=== PATIENT | female | born 2000 | race Caucasian/White ===

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

== ENCOUNTER 2021-04-28 12:57 | Outpatient (CLI) | payer BC, SELFPAY ==
[2021-04-28 14:54] LABS: SARS-CoV-2 RNA PCR Negative (Negative)
== END 2021-04-28 12:58 | disposition home or self-care (01) ==
LOC: CHSLAB 13:01
PROVIDERS: PCP Family Medicine; Visit Provider Family Medicine
DX: J00 Acute nasopharyngitis [common cold] (principal); Z20.822 Contact with and (suspected) exposure to COVID-19
CPT/HCPCS: C9803; U0003; U0005

== ENCOUNTER 2021-05-31 12:46 | Outpatient (CLI) | payer BC, SELFPAY ==
[2021-05-31 14:07] LABS: SARS-CoV-2 RNA PCR Positive (Negative)
== END 2021-05-31 12:47 | disposition home or self-care (01) ==
LOC: CHSLAB 12:49
PROVIDERS: PCP Family Medicine; Visit Provider Family Medicine
DX: U07.1 COVID-19 (principal)
CPT/HCPCS: C9803; U0003; U0005

== ENCOUNTER 2021-08-15 09:34 | Outpatient (CLI) | payer BC, SELFPAY ==
[2021-08-15 10:30] LABS: SARS-CoV-2 RNA PCR Negative (Negative)
== END 2021-08-15 09:35 | disposition home or self-care (01) ==
LOC: CHSLAB 09:37
PROVIDERS: PCP Family Medicine; Visit Provider Family Medicine
DX: Z20.822 Contact with and (suspected) exposure to COVID-19 (principal)
CPT/HCPCS: C9803; U0003; U0005

== ENCOUNTER 2023-05-02 14:59 | Outpatient (CLI) | payer OTHER, SELFPAY ==
--- NOTE | ~2023-05-02 | XR_ITS ---
EXAMINATION: XR chest 2V DATE: 05/02/2023 15:17 INDICATION: Cough TECHNIQUE: PA and lateral views of the chest are obtained. COMPARISON: 11/01/2019 FINDINGS: The lungs are free of acute opacities. No pleural effusion or pneumothorax. The cardiomedia stinal silhouette is normal. The visualized bones and soft tissues are unremarkable. IMPRESSION: 1. No acute cardiopulmonary abnormality. Reviewed, dictated and finalized at location A.
== END 2023-05-02 15:00 | disposition home or self-care (01) ==
LOC: CHSIMG 15:02
PROVIDERS: PCP Family Medicine; Visit Provider Family Medicine
DX: R05.8 Other specified cough (principal)
CPT/HCPCS: 71046

== ENCOUNTER 2023-05-16 13:01 | Outpatient (CLI) | payer OTHER, SELFPAY | END 2023-05-16 13:02 | disposition home or self-care (01) | LOC: CHSCARD 13:03 | PROVIDERS: PCP Family Medicine; Visit Provider Family Medicine | DX: R05.8 Other specified cough (principal) | CPT/HCPCS: 94060; 94726; 94729 ==

== ENCOUNTER 2023-10-22 17:47 | Emergency (ER) | payer OTHER, SELFPAY ==
--- NOTE | ~2023-10-22 | XR_ITS ---
EXAMINATION: XR chest 2V DATE: 10/22/2023 18:30 INDICATION: Back pain and posterior left shoulder pain TECHNIQUE: PA and lateral views of the chest were obtained. COMPARISON: Chest radiograph dated 05/02/2023 FINDINGS: The lungs are clear with no focal airspace opacities, pulmonary edema, pleural effusion or pneumothor ax. The cardiomediastinal silhouette is normal. Minimal S-shaped curvature of the thoracic spine with minimal spondylosis IMPRESSION: 1. No acute cardiopulmonary disease. Reviewed, dictated and finalized at location A. ATIONS LEAD
[2023-10-22 17:47] VITALS: BP 131/86; PULSE 97; RESP 17; TEMP 36.9; O2SAT 100
[2023-10-22 18:00] VITALS: BP 124/82; PULSE 89; RESP 17; O2SAT 99
--- NOTE | 2023-10-22 18:11 | ECG_ITS ---
Measurements Intervals [place] Rate: 82 P: -90 [place]: 114 QRS: 124 QRSD: 113 T: 35 QT: 365 QTc: 428 Interpretive Statements ECTOPIC ATRIAL RHYTHM INCOMPLETE RIGHT BUNDLE BRANCH BLOCK [90+ ms QRS DURATION, TERMINAL R IN V1/V2, 40+ ms S IN I/aVL/V4/V5/V6] RIGHT VENTRICULAR HYPERTROPHY AND ST-T CHANGE [SOME/ALL OF: PROMINENT R IN V1, LATE TRANSITION, RAD, JONNIE, SSS, RIGHT PRECORDIA ABNORMAL ECG NO PREVIOUS ECG AVAILABLE FOR COMPARISON Electronically Signed On 10-23-2023 11:56:04 COMMUNITY ENGAGEMENT LEADER by Darrell Yeung M.D.
--- NOTE | 2023-10-22 18:11 | ED.CHESTPAIN ---
HPI - Chest Pain General Chief Complaint: Back Pain/Injury Stated Complaint: BACK PAIN Time Seen by Provider: 10/22/23 17:52 History of Present Illness HPI narrative: Patient is a 23 year old female with history of asthma, active smoker, here with left sided posterior chest pain. She notes pain began . Pain is located just medially to her scapula on the left side, non radiating. Notes it seems to worsen with movements as well as deep breaths. She notes associated shortness of breath, no cough. No trauma however she did do her friends hair for 4-5 hours before onset of the pain. She denies recent travel history, history of PE/DVT. She is an active smoker, is on the Depo shot for control. No cardiac history. Related Data Home Medications Medication Instructions Recorded Confirmed buspirone 10 mg tablet 10 mg PO BID 10/22/23 10/22/23 fluticasone propionate 115 2 puff inhalation BID 10/22/23 10/22/23 mcg-salmeterol 21 mcg/actuation HFA inhaler (Advair HFA) quetiapine 50 mg tablet 50 mg PO DAILY 10/22/23 10/22/23 Allergies Allergy/AdvReac Type Severity Reaction Status Date / Time latex Allergy Unknown BURNING Verified 10/22/23 17:53 AND PAINFUL acetaminophen Allergy Unknown Verified 10/22/23 17:53 Penicillins Allergy Unknown Verified 10/22/23 17:53 Review of Systems Review of Systems: All systems reviewed & are unremarkable except as noted in HPI and below PMFSH Past Medical History Medical History (Updated 10/22/23 @ 19:16 by Dana Santillan MD) Asthma [place] syndrome Family History Family History Other No problems noted. Social History Social History Tobacco type: e-cigarettes/vaping Alcohol intake: never Substance use: never Living arrangements: with family Gender identity (if verbalized by the patient): Female Sexual Orientation (if Verbalized by the Patient): Straight or Heterosexual Exam Narrative: GENERAL: Well-appearing, well-nourished, and in no acute distress. HEAD: Normocephalic, atraumatic. EYES: PERRLA and EOMI. ENT: Nares clear. Mucous membranes moist. NECK: Supple. CHEST: Clear to auscultation. No respiratory distress. Reproducible tenderness medial to the scapula on the left side. No overlying skin changes. HEART: Regular rate and rhythm. Normal peripheral pulses. ABDOMEN: Soft, nontender, nondistended. EXTREMITIES: Normal range of motion. No edema. SKIN: Warm, dry, no rash. NEURO: No focal deficits. Alert and oriented x3. PSYCH: Normal mood and affect. Course Course Emergency Course: Chart review performed. Patient here with posterior chest wall pain. Patient seen and evaluated, non toxic appearing. Reproducible chest wall pain. Will do cardiac workup. Given smoker and control use, cannot apply PERC rule, patient is low risk, will do screening d-dimer. Muscle relaxer ordered for pain. Lab work and imaging reviewed. CBC unremarkable. D-dimer negative. CMP grossly normal. Mildly elevated bilirubin, this is actually improved from prior. Troponin negative. Pain has been present since , do not feel the need for repeat troponin at this point. CXR negative. Patient reevaluated, feeling a bit better with muscle relaxers. Will additionally do lidoderm patch and norco here. Will discharge on tylenol, ibuprofen and lidoderm patch. The results of pertinent diagnostic studies and exam findings were discussed. The patient?s provisional diagnosis and plan of care were discussed with the patient and present family. The patient and/or present family expressed understanding of the diagnosis and plan. The nurse was instructed to provide written instructions and appropriate follow-up information. The patient understands their need and responsibility to obtain additional follow-up as instructed. The risks of medications administered an
[2023-10-22 18:24] LABS: Basophils Absolute Auto 0.05 K/mm3 (0.00-0.10); Basophils Percent Auto 0.7 % (0.0-1.0); Eosinophils Absolute Auto 0.04 K/mm3 (0.02-0.50); Eosinophils Percent Auto 0.6 % (1.0-6.0); Hematocrit 40.6 % (35.0-49.0); Hemoglobin 13.8 g/dL (12.0-15.0); Immature Granulocyte Absolute 0.02 K/mm3 (0.00-0.00); Immature Granulocyte Percent A 0.3 % (0.0-0.0); Lymphocytes Absolute Auto 2.17 K/mm3 (1.10-4.50); Lymphocytes Percent Auto 31.5 % (18.0-42.0); Mean Corpuscular Hemoglobin 29.3 pg (27.0-31.0); Mean Corpuscular Volume 86.2 fL (78.0-102.0); Mean Platelet Volume 10.8 fl (9.2-11.8); Monocytes Absolute Auto 0.51 K/mm3 (0.10-0.90); Monocytes Percent Auto 7.4 % (2.0-11.0); Neutrophils Absolute Auto 4.1 K/mm3 (1.7-7.2); Neutrophils Percent Auto 59.5 % (50.0-70.0); Platelet Count Result 213 K/mm3 (150-420); Red Blood Count 4.71 M/mm3 (4.20-5.40); Red Cell Distribution Width 11.9 % (11.6-14.4); White Blood Count 6.9 K/mm3 (4.8-10.8)
[2023-10-22 18:30] VITALS: BP 118/76; PULSE 87; RESP 17; O2SAT 98
[2023-10-22] MEDS: CYCLOBENZAPRINE HCL 10 MG TABLET 5 MG PO (18:32)
[2023-10-22 18:37] LABS: D Dimer 0.19 mg/L (0.19-0.50)
[2023-10-22 18:47] LABS: Alanine Aminotransferase 32 U/L (14-59); Alkaline Phosphatase 72 U/L (46-116); Anion Gap 11 mmol/L (8-16); Aspartate Amino Transferase 27 U/L (15-37); Bilirubin,Total 1.4 mg/dL (0.00-1.00); Blood Urea Nitrogen 6 mg/dL (7-18); Carbon Dioxide 27 mmol/L (21-32); Chloride 105 mmol/L (98-108); Estimated Glomerular Filt Rate > 60; Glucose 91 mg/dL (70-99); NT Pro B Type Natriuretic Pept 44 pg/mL (0-125); Osmolality Calculated 293 mOsm/kg (285-295); Potassium 3.6 mmol/L (3.5-5.1); Sodium 143 mmol/L (136-145); Total Protein 7.1 g/dL (6.4-8.2); Troponin I 8.4 ng/L (0.00-60.4)
[2023-10-22 19:00] VITALS: BP 117/79; PULSE 80; RESP 17; O2SAT 98
[2023-10-22] MEDS: HYDROcodone/acetaminophen (*CRX) 5-325 MG TABLET 1 TAB PO (19:29)
[2023-10-22] MEDS: LIDOCAINE 5% PATCH 1 PATCH TRANSDERM (19:29)
[2023-10-22 19:33] VITALS: BP 111/71; PULSE 76; RESP 17; TEMP 36.9; O2SAT 98
== END 2023-10-22 19:33 | disposition home or self-care (01) ==
PROVIDERS: Emergency Provider Student in an Organized Health Care Education/Training Program; PCP Family Medicine
DX: R07.89 Other chest pain (principal); R06.02 Shortness of breath; F17.290 Nicotine dependence, other tobacco product, uncomplicated
CPT/HCPCS: 36415; 71046; 80053; 83880; 84484; 85025; 85380; 93005; 99284; A9270

== ENCOUNTER 2023-10-24 17:06 | Emergency (ER) | payer OTHER, SELFPAY ==
[2023-10-24 17:06] VITALS: BP 132/83; PULSE 98; RESP 20; TEMP 36.1; O2SAT 100
--- NOTE | 2023-10-24 17:12 | ECG_ITS ---
Measurements Intervals [place] Rate: 93 P: 267 [place]: 92 QRS: 113 QRSD: 118 T: 54 QT: 357 QTc: 444 Interpretive Statements ECTOPIC ATRIAL rHYTHM INCOMPLETE RIGHT BUNDLE BRANCH BLOCK [90+ ms QRS DURATION, TERMINAL R IN V1/V2, 40+ ms S IN I/aVL/V4/V5/V6] POSSIBLE RIGHT VENTRICULAR HYPERTROPHY [SOME/ALL OF: PROMINENT R IN V1, LATE TRANSITION, RAD, JONNIE, SSS] ABNORMAL ECG COMPARED TO ECG 10/22/2023 18:30:27 NO DIFFERENCE Electronically Signed On 10-25-2023 14:59:00 MANAGER MEAT by Chris Jack M.D.
[2023-10-24 17:18] VITALS: BP 128/73; PULSE 92; RESP 16; TEMP 36.6; O2SAT 100
[2023-10-24 17:33] LABS: Basophils Absolute Auto 0.05 K/mm3 (0.00-0.10); Basophils Percent Auto 0.8 % (0.0-1.0); Eosinophils Absolute Auto 0.04 K/mm3 (0.02-0.50); Eosinophils Percent Auto 0.7 % (1.0-6.0); Hematocrit 40.1 % (35.0-49.0); Hemoglobin 13.6 g/dL (12.0-15.0); Immature Granulocyte Absolute 0.01 K/mm3 (0.00-0.00); Immature Granulocyte Percent A 0.2 % (0.0-0.0); Lymphocytes Absolute Auto 2.03 K/mm3 (1.10-4.50); Lymphocytes Percent Auto 33.4 % (18.0-42.0); Mean Corpuscular HGB Conc 33.9 g/dL (32.0-36.0); Mean Corpuscular Hemoglobin 29.3 pg (27.0-31.0); Mean Corpuscular Volume 86.4 fL (78.0-102.0); Mean Platelet Volume 10.8 fl (9.2-11.8); Monocytes Absolute Auto 0.52 K/mm3 (0.10-0.90); Monocytes Percent Auto 8.6 % (2.0-11.0); Neutrophils Absolute Auto 3.4 K/mm3 (1.7-7.2); Neutrophils Percent Auto 56.3 % (50.0-70.0); Platelet Count Result 226 K/mm3 (150-420); Red Blood Count 4.64 M/mm3 (4.20-5.40); White Blood Count 6.1 K/mm3 (4.8-10.8)
[2023-10-24] MEDS: ALPRAZolam (*CRX) 0.5 MG TABLET PO (17:40)
[2023-10-24] MEDS: KETOROLAC (*BKC) 60 MG/2 ML VIAL IM (17:41)
[2023-10-24 17:48] LABS: D Dimer 0.19 mg/L (0.19-0.50); INR 1.1; Partial Thromboplastin Time 25.8 SEC (23.90-30.70); Prothrombin Time 12.1 Seconds (9.50-12.10)
[2023-10-24 17:55] LABS: Alanine Aminotransferase 28 U/L (14-59); Albumin Level 4.3 g/dL (3.4-5.0); Alkaline Phosphatase 76 U/L (46-116); Anion Gap 11 mmol/L (8-16); Aspartate Amino Transferase 21 U/L (15-37); Bilirubin,Total 1.4 mg/dL (0.00-1.00); Blood Urea Nitrogen 6 mg/dL (7-18); Calcium 8.9 mg/dL (8.5-10.1); Carbon Dioxide 25 mmol/L (21-32); Chloride 105 mmol/L (98-108); Estimated CRCL calculation 73 ml/min; Estimated Glomerular Filt Rate > 60; Glucose 101 mg/dL (70-99); Lipase 40 U/L (16-77); Osmolality Calculated 289 mOsm/kg (285-295); Potassium 3.5 mmol/L (3.5-5.1); Sodium 141 mmol/L (136-145); Troponin I 7.2 ng/L (0.00-60.4)
[2023-10-24 17:56] VITALS: BP 127/75; PULSE 84; RESP 18; O2SAT 99
--- NOTE | 2023-10-24 18:08 | ED.RECABL ---
HPI - Recheck/Abnormal Lab/Rx General Chief Complaint: Recheck/Abnormal Lab/Rx Stated Complaint: Shoulder Pain Time Seen by Provider: 10/24/23 17:10 this is a 23-year-old female was sent to the ER by her primary care physician with abnormal EKG. EKG was performed on the when she visited the ER at that time had blood work performed which does show an incomplete right bundle branch block with nonspecific ST-T changes with some patient complaining of shoulder discomfort and upper back pain. Patient denies any chest pain no chest pain with palpation, patient has no nausea vomiting no abdominal pain no shortness of breath no fever chills. Patient has pain with deep inspiration. Source: patient and family Mode of arrival: ambulatory Limitations: no limitations Related Data Home Medications Medication Instructions Recorded Confirmed buspirone 10 mg tablet 10 mg PO BID 10/22/23 10/24/23 fluticasone propionate 115 2 puff inhalation BID 10/22/23 10/24/23 mcg-salmeterol 21 mcg/actuation HFA inhaler (Advair HFA) quetiapine 50 mg tablet 50 mg PO DAILY 10/22/23 10/24/23 Allergies Allergy/AdvReac Type Severity Reaction Status Date / Time No Known Drug Allergies Allergy Other Verified 10/24/23 17:13 Review of Systems Review of Systems: All systems reviewed & are unremarkable except as noted in HPI and below PMFSH Past Medical History Medical History (Updated 10/24/23 @ 18:13 by Chris Rojas MD) Asthma [place] syndrome Family History Family History Other No problems noted. Social History Social History Tobacco type: e-cigarettes/vaping Alcohol intake: never Substance use: never Living arrangements: with family Gender identity (if verbalized by the patient): Female Sexual Orientation (if Verbalized by the Patient): Straight or Heterosexual Exam Const: General: healthy appearing and no acute distress Nutritional Appearance: well nourished Orientation/consciousness: patient oriented x3 Eyes: Conjunctivae: conjunctivae normal Neck: Neck: normal visual inspection Chest: Chest palpation & inspection: normal inspection of the chest Resp: Effort & Inspection: normal respiratory effort Auscultation: clear to auscultation bilaterally Cardio: Rate: regular rate Rhythm: regular rhythm GI: GI Palp: Yes Soft to palpation Auscultation: normal bowel sounds Back/Spine/Pelvis: Back: no CVA tenderness Skin: General skin exam: normal color Rashes: no rashes Neuro: General: patient oriented x3 and moves all extremities Extrem: General: normal to inspection Other: Mid upper back pain with deep inspiration Psych: Mental Status: mental status grossly normal Course Course Emergency Course: patient EKG performed shows an incomplete right bundle branch block with nonspecific ST elevation I was reviewed with patient and family, patient had similar EKG performed 2 days ago. Patient had troponins performed and they were negative as well as D-dimer. Patient received Toradol 60mg IM and 0.5mg PO Xanax. Patient continues to be anxious and advised to follow-up with her primary care physician and possible cardiology referral. Vital Signs Vital signs: Vital Signs Temperature 36.1 C L 10/24/23 17:06 Pulse Rate 98 10/24/23 17:06 Respiratory Rate 20 10/24/23 17:06 Blood Pressure 132/83 10/24/23 17:06 Pulse Oximetry 100 10/24/23 17:06 Oxygen Delivery Room Air 10/24/23 17:06 Temperature 36.6 C 10/24/23 17:18 Pulse Rate 84 10/24/23 17:56 Respiratory Rate 18 10/24/23 17:56 Blood Pressure 127/75 10/24/23 17:56 Pulse Oximetry 99 10/24/23 17:56 Oxygen Delivery Room Air 10/24/23 17:56 MDM - Recheck/Abnormal Lab/Rx Lab Data 10/24/23 17:28 10/24/23 17:28 Labs: Lab Results 10/24/23 Range/Units
[2023-10-24 18:24] VITALS: BP 109/71; PULSE 74; RESP 16; TEMP 36.6; O2SAT 100
== END 2023-10-24 18:27 | disposition home or self-care (01) ==
PROVIDERS: Emergency Provider Emergency Medicine; PCP Family Medicine
DX: I45.10 Unspecified right bundle-branch block (principal); R09.1 Pleurisy; F17.290 Nicotine dependence, other tobacco product, uncomplicated; Z79.899 Other long term (current) drug therapy
CPT/HCPCS: 36415; 80053; 83690; 84484; 85025; 85380; 85610; 85730; 93005; 96372; 99284; A9270; J1885

== ENCOUNTER 2023-10-25 15:48 | Outpatient (CLI) | payer OTHER, SELFPAY ==
--- NOTE | ~2023-10-25 | XR_ITS ---
EXAMINATION: XR chest 2V, XR scapula LT DATE: 10/25/2023 16:08 INDICATION: Left scapular pain TECHNIQUE: 1. PA and lateral views of the chest were obtained. AP and lateral views of the left scapula were obtained. COMPARISON: Chest radiograph dated 10/22/2023 FINDINGS: The lungs remain clear with no focal airspace opacities, pulmonary edema, pleural effusion or pneumot horax. The cardiomediastinal silhouette is normal. Mild thoracic spondylosis.. Bone alignment is norm al. No fracture. Joint space at the left glenohumeral and acromioclavicular joint spaces are normal. IMPRESSION: 1. Mild thoracic spondylosis. Otherwise normal chest and left scapular radiographs. Reviewed, dictated and finalized at location A. NEL LIP WETTER IMPRESSION: 1. Mild thoracic spondylosis. Otherwise normal chest and left scapular radiogra phs.
== END 2023-10-25 15:49 | disposition home or self-care (01) ==
LOC: CHSIMG 15:50
PROVIDERS: PCP Family Medicine; Visit Provider Family Medicine
DX: R07.9 Chest pain, unspecified (principal); M25.512 Pain in left shoulder; M43.04 Spondylolysis, thoracic region
CPT/HCPCS: 71046; 73010

== ENCOUNTER 2024-04-30 10:35 | Outpatient (CLI) | payer OTHER, SELFPAY ==
[2024-04-30 10:47] LABS: Hematocrit 42.6 % (35.0-49.0); Hemoglobin 14.5 g/dL (12.0-15.0); Red Blood Count 4.86 M/mm3 (4.20-5.40); White Blood Count 5.6 K/mm3 (4.8-10.8)
[2024-04-30 10:48] LABS: Basophils Absolute Auto 0.05 K/mm3 (0.00-0.10); Basophils Percent Auto 0.9 % (0.0-1.0); Eosinophils Absolute Auto 0.03 K/mm3 (0.02-0.50); Eosinophils Percent Auto 0.5 % (1.0-6.0); Immature Granulocyte Absolute 0.01 K/mm3 (0.00-0.00); Immature Granulocyte Percent A 0.2 % (0.0-0.0); Lymphocytes Absolute Auto 1.76 K/mm3 (1.10-4.50); Lymphocytes Percent Auto 31.4 % (18.0-42.0); Mean Corpuscular Hemoglobin 29.8 pg (27.0-31.0); Mean Corpuscular Volume 87.7 fL (78.0-102.0); Mean Platelet Volume 10.7 fl (9.2-11.8); Monocytes Absolute Auto 0.32 K/mm3 (0.10-0.90); Monocytes Percent Auto 5.7 % (2.0-11.0); Neutrophils Absolute Auto 3.44 K/mm3 (1.70-7.20); Neutrophils Percent Auto 61.3 % (50.0-70.0); Platelet Count Result 227 K/mm3 (150-420); Red Cell Distribution Width 11.9 % (11.6-14.4)
[2024-04-30 10:52] LABS: Add Urine Microscopic? NO; Appearance Urine Clear (Clear); Bilirubin Urine Negative (Negative); Blood Urine Negative (Negative); Color Urine Light Yellow (Yellow); Glucose Urine UA Negative (Negative); Ketones Urine Negative (Negative); Leukocyte Esterase Ur Negative (Negative); Nitrate Urine Negative (Negative); Protein Urine Negative (Negative); Specific Grav Ur 1.015 (1.010-1.020); Urobilinogen Urine 0.2 mg/dL (0.2-1.0)
[2024-04-30 11:38] LABS: Alanine Aminotransferase 38 U/L (14-59); Albumin Level 4.6 g/dL (3.4-5.0); Alkaline Phosphatase 99 U/L (46-116); Amylase 71 U/L (25-115); Anion Gap 9 mmol/L (4-12); Aspartate Amino Transferase 24 U/L (15-37); Bilirubin,Total 1.8 mg/dL (0.00-1.00); Blood Urea Nitrogen 9 mg/dL (7-18); Calcium 9.3 mg/dL (8.5-10.1); Carbon Dioxide 30 mmol/L (21-32); Chloride 101 mmol/L (98-108); Estimated Glomerular Filt Rate > 60; Glucose 86 mg/dL (70-99); Lipase 50 U/L (16-77); Osmolality Calculated 287 mOsm/kg (285-295); Potassium 4.2 mmol/L (3.5-5.1); Sodium 140 mmol/L (136-145); Total Protein 7.4 g/dL (6.4-8.2)
[2024-04-30 15:46] LABS: SPREG INTERNAL CONTROL Positive
[2024-04-30 15:47] LABS: Serum Qual hCG Negative
== END 2024-04-30 10:36 | disposition home or self-care (01) ==
LOC: CHSLAB 10:37
PROVIDERS: PCP Family Medicine; Visit Provider Family Medicine
DX: R10.9 Unspecified abdominal pain (principal)
CPT/HCPCS: 36415; 80053; 81003; 82150; 83690; 84703; 85025

== ENCOUNTER 2024-05-06 17:18 | Outpatient (RCR) | payer OTHER, SELFPAY ==
--- NOTE | 2024-05-18 17:13 | PCPTNOTE ---
Patient called & cancelled scheduled appointment this date due to [illness ]
--- NOTE | 2024-05-22 13:08 | PCPTNOTE ---
Cancelled session due to work schedule.
--- NOTE | 2024-05-29 16:10 | PCPTNOTE ---
No call, no show.
--- NOTE | 2024-07-01 17:35 | OPREHPOC ---
Outpatient Therapy Plan of Care This is a Multidisciplinary Plan of Care that may contain components documented by all disciplines (PT, OT, and ST.) PT Problem 1 PT Problem #1 Knowledge Deficit PT Goal 1 Goal / Goal Update 1. independent and compliant with HEP Target Visit 6 PT Problem 2 PT Problem #2 Pain PT Goal 1 Goal / Goal Update 1. decrease pain at worst to 4/10 or less Target Visit 12 PT Problem 3 PT Problem #3 Impaired Range of Motion PT Goal 1 Goal / Goal Update 1. patient to achieve 100% active lumbar rom without increased pain Target Visit 12 PT Problem 4 PT Problem #4 Impaired Strength PT Goal 1 Goal / Goal Update 1. improve core strength to 4/5 2. improve bilateral hip strength to 4+5/ or better 3. improve bilateral knee strength to 5/5 4. bridge to neutral posture and hold for 30 seconds or more Target Visit 12 PT Problem 5 PT Problem #5 Impaired Functional Mobil PT Goal 1 Goal / Goal Update 1. patient to tolerating walking 30 minutes without increased symptoms 2. oswestry to display 25% or less functional deficits 3. no L LE radicular symptoms Target Visit 12
--- NOTE | 2024-07-01 17:35 | PTOPEVAL1 ---
Assessment and note entered by JT File, PT Evaluation Information Assessment Status Evaluation ICD-10 Condition Codes (PT) Pain in low back M54.50 Onset 10/19/2023 Subjective Information patient reports she has been having pain in the back since october of this year. she reports the pain randomly came on. she reports she has had pain in the lower back back in 2016. she reports her pain in the lower back now has been increased since March of this year. she reports she has used medicated patches and ointments. she reports she has increased pain when getting up in the mornings . she reports she also has pain when she works out . she reports any movement can increase her pain. 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 she reports she does have stabbing pain in the L LE. she reports she also at times has numbness in the R LE. she reports she she has had xrays of the lower back. Assessment PT Clinical Summary mrs. alexander is a 24 yo woman who presents to skilled PT services for evaluation and treatment of lower back pain. she presents today with pain in the lumbar spine at rest and with movement, decreased core strength, weak LE strength, and limited rom/functional mobility. she is likely limited in functional activity performance due to poor core stability and posture with functional activities. continued skilled PT is indicated to improve her objective/functional deficits and progress towards a return to her prior level functional activity performance/quality of life. Plan of Care Interventions Electrical Stimulation,Hot Pack/Cold Pack,Manual Therapy,Mechanical Traction,Neuro Re-education, Patient/Caregiver Educati,Therapeutic Activities, Therapeutic Exercise PT Services Indicated Yes Treatment Frequency and 2x weekly for 12 visits Duration These treatments will address the objective and functional deficits as defined above. The patient will be advanced safely and appropriately in order for the patient to progress towards his/her prior level of function. Additional exercises will be introduced and as well as a comprehensive home exercise program upon discharge, if needed, ?to ensure carryover of functional gains achieved in the clinic. This treatment plan has been reviewed and agreement upon by the patient.
== END 2024-08-04 23:59 | disposition home or self-care (01) ==
LOC: CHSPT 17:18
PROVIDERS: Visit Provider Family Medicine
DX: M54.41 Lumbago with sciatica, right side (principal)
CPT/HCPCS: 97014; 97110; 97161; G0283

== ENCOUNTER 2024-11-21 08:12 | Emergency (ER) | payer OTHER, SELFPAY ==
--- NOTE | ~2024-11-21 | CT_ITS ---
CT of the Abdomen and Pelvis: Indication: Abdominal pain Technique: 2.5 mm axial scans were obtained through the abdomen and pelvis following intravenous adm inistration of 100 cc of Omnipaque 350. Dose reduction technique was used on this scan by utilizing a utomated exposure control and iterative reconstruction technique. The dose-length product (DLP) was 1 70.55 mGy-cm. Findings: Scans through the lung bases are unremarkable. The liver, spleen, pancreas, gallbladder, adrenals and kidneys are within normal limits. No evidence of aortic aneurysm. No lymphadenopathy. No bowel obstruction or bowel wall thickening. There is no evidence to suggest acute appendicitis. Images through the pelvis were performed. Probable mildly complex 3.6 cm right ovarian cyst with smal l amount of free fluid in the pelvis. No other pelvic mass evident. Urinary bladder unremarkable. Impression: Probable 3.6 cm mildly complex right ovarian cyst with small amount of free fluid in the pelvis. Cons ider pelvic ultrasound. Reviewed, dictated and finalized at location . Impression: Probable 3.6 cm mildly complex right ovarian cyst with small amount of free flu id in the pelvis. Consider pelvic ultrasound.
--- OUTSIDE RECORDS SUMMARY | 2024-11-21 08:14 | XMS_ITS ---
Author Organization Unknown Address [address] [place] [phone] Phone Care Team Providers Care Cabinet Professional Name Role Phone EDWARD ANASTACIOANGYAshok Attending Unavailable LUCY USHA Primary Unavailable Immunization Immunization Date Status Additional Notes Code Code System MMR 06/29/2002 Completed 03 CVX MMR 04/22/2006 Completed 03 CVX Hep B, adolescent or pediatric 2001 Completed 08 CVX IPV 2001 Completed 10 CVX IPV 2001 Completed 10 CVX IPV 2001 Completed 10 CVX IPV 04/22/2006 Completed 10 CVX influenza, split (incl. purified surface antigen) 06/23/2009 Completed 15 CV X influenza, split (incl. purified surface antigen) 07/31/2010 Completed 15 CV X influenza, split (incl. purified surface antigen) 07/31/2010 Completed 15 CV X Hib, unspecified formulation 2001 Completed 17 CVX DTaP 2001 Completed 20 CVX DTaP 2001 Completed 20 CVX DTaP 2001 Completed 20 CVX DTaP 06/29/2002 Completed 20 CVX DTaP 04/22/2006 Completed 20 CVX varicella 06/29/2002 Completed 21 CVX varicella 04/23/2012 Completed 21 CVX varicella 04/23/2012 Completed 21 CVX Hep A, pediatric, unspecifie d formulation 07/31/2010 Completed 31 CVX Hib-Hep B 2001 Completed 51 CVX Hib-Hep B 06/29/2002 Completed 51 CVX HPV, quadrivalent 06/03/2013 Completed 62 C VX HPV, quadrivalent 06/03/2013 Completed 62 C VX Hep A, ped/adol, 2 dose 04/23/2012 Completed 83 CVX Hep A, ped/adol, 2 dose 04/23/2012 Completed 83 CVX pneumococcal conjugate PCV 7 2001 Completed 100 CVX pneumococcal conjugate PCV 7 2001 Completed 100 CVX pneumococcal conjugate PCV 7 2001 Completed 100 CVX pneumococcal conjugate PCV 7 06/29/2002 Completed 100 CVX Td (adult), 5 Lf tetanus toxoid, preservative free, adsorbed 04/23/2016 Completed 113 CVX Td (adult), 5 Lf tetanus toxoid, preservative free, adsorbed 04/23/2016 Completed 113 CVX meningococcal MCV4P 05/26/2018 Completed 114 CVX meningococcal MCV4P 05/26/2018 Completed 114 CVX Tdap 04/23/2012 Completed 115 CVX Tdap 04/23/2012 Completed 115 CVX Meningococcal MCV4O 04/23/2012 Completed 136 CVX Influenza, split virus, trivalent, preservative 04/23/2012 Completed 141 CVX Influenza, split virus, quadrivalent, PF 06/03/2013 Completed 150 CVX HPV9 04/23/2012 Completed 165 CVX HPV9 06/23/2012 Completed 165 CVX Social History Type Status Start Date End Date Code Code Syst em Smoking History Unknown if ever smoked [id number] Sex Female Hospital Discharge Instructions Should you have any questions prior to discharge, please contact a member of your healthcare team. If you have left the hospital and have any questions, please contact your primary care physician. Reason For Referral No Data Found Plan of Treatment US Echo With Color ([id number]) 02/13/2024 Encounters Encounter Diagnosis Start Date Code Code Sys tem Abnormal electrocardiogram [ECG] [EKG] 11/26/2023 SNOMED-CT Personal Care Team Section Performer Name Performer Role Active Date Inactive USHA Catherine PCP - Primary care physician
--- OUTSIDE RECORDS SUMMARY | 2024-11-21 08:14 | XMS_ITS | Patient Health Summary ---
Author Organization [facility] Address [address] [place] [address] Care Team Providers Care Engineering Supplies Sales Name Role Phone Crispin Cruz MD Primary Care Provider [phone] Note from [facility],non-owned Affiliates and Associated Physician Practices is amultiple site organization consisting of ambulatory clinics and hospital sitesin [place], [place], [place] and [place]. This disclosure is being madepursuant to the Care Everywhere program and may not contain all information available regarding this patient. Last updated 18.[facility] Allergies * Acetaminophen(Nausea, abdominal pain) Medications * Be aware that medications may not be up to date on this document. Alwaysverify current medications with the patient. * pkulbvz-ixxfuztfofcvl-nsylkjiu 250-250-65 MG tablet Take 1 Tab by mouth every 4 hours as needed for Headache * naproxen (NAPROSYN) 500 MG tablet(Started 08/16/2015) Take 1 Tab by mouth as needed with food for Pain 5 refills left * raNITIdine (ZANTAC) 300 MG tablet Take 300 mg by mouth once daily * FLUoxetine (PROZAC) 20 MG capsule Take 20 mg by mouth once daily * drospirenone-ethinyl estradiol (LORYNA) 3-0.02 MG tablet Take 1 tablet by mouth once daily * ibuprofen (MOTRIN) 200 MG tablet Take by mouth every 6 hours as needed for Pain * HYDROcodone-acetaminophen (NORCO) 5-325 MG tablet Take 1 tablet by mouth every 4 hours as needed for Pain Active Problems Problem Noted Date Diagnosed Date Head ache 07/30/2017 Migraine without aura and wi thout status migrainosus, not intractable POTS (postural orthostatic tachycardia syndrome) Syncope and collapse Social History Tobacco Use Types Packs/Day Years Used Date Smoking Tobacco: Every Day Smokeless Tobacco: Never Sex and Gender Information Value Date Recorded Sex Assigned at Not on file Gender Identity Not on file Sexual Orientation Not on file Last Filed Vital Signs Vital Sign Reading Time Taken Comments Blood Pressure 104/68 08/21/2018 8:43 AM [employer] Pulse 79 06/14/2017 7:49 AM CDT per p cp Temperature 35.9 C (96.6 F) 06/14/2017 7:49 AM CDT per pcp Respiratory Rate 16 03/26/2017 9:13 AM CDT Oxygen Saturation 99% 03/26/2017 9:13 AM CDT Inhaled Oxygen Concentration - - Weight 47.3 kg (104 lb 4.4 oz) 08/21/2018 8:43 A M [employer] Height 159.8 cm (5' 2.91 ) 08/21/2018 8:43 AM CS T Body Mass Index 18.52 08/21/2018 8:43 AM [employer] Procedures * LAB RESULTS ORDER(Performed 04/11/2017) * CARDIAC EKG ORDER(Performed 04/11/2017) * ECHO CONSULT - PEDIATRIC(Performed 03/26/2017) Performed for Chest pain, unspecified type * EKG 15-LEAD(Performed 03/26/2017) Performed for Chest pain, unspecified type Results * LAB RESULTS ORDER (04/11/2017 12:38 PM CDT) Narrative 04/11/2017 12:38 PM CDT Ordered by an unspecified provider. Scanned Document LAB - THERAPEUTIC DR ELIAS MONITORING ORDERABLES * CARDIAC EKG ORDER (04/11/2017 12:38 PM CDT) Narrative 04/11/2017 12:38 PM CDT Ordered by an unspecified provider. Scanned Document CARDIAC SERVICES ORD ERABLES * ECHO CONSULT - PEDIATRIC (03/26/2017 10:24 AM CDT) 03/26/2017 10:2 4 AM CDT Narrative Procedure Note Yomi Hernandez MD - 03/26/2017 [address] [place] [id number] Fax Congenital Transthoracic Report Pat.Name: FATMATA HANNA Pat.ID: [id number] St.Date: 03/26/2017 Exam Time: 10:24:00 AM Study Type:Congenital TTE Height: 161cm Weight: 56kg BSA: 1.58 m2 Age: 7 2000,17Y Sex: FEMALE BP: 92/54 Sonogrphr: Yoselyn Alberto RDCS Pat. Stat.:Outpatient Room: Clinic CPT - 4: 10782 Reason for Study:Chest pain. Syncope History / Clinical:chest pain syncope Procedures:2D Non-congenital, Doppler Complete, Color Flow Visit ID: [id number] SUMMARY: Impression: Normal intracardiac anatomy and normal biventricular systolic function. No pathologic valve stenosis or regurgitation. Limited views of the coronary arteries but appear normal. Findings: Anatomic Relationships: Abdominal situs solitus. There is levocardia. Atrial situs solitus. The AV alignment is concordant. The ventricular looping is D-looped. The VA connection is concordant. The arterial relationships are normal. Systemic Veins: Normal right SVC. Normal IVC. Pulmonary Veins: Pulmonary veins drain normally to LA. Right Atrium: The right atrial size is normal. Left Atrium: The left atrial size is normal. Atrial Septum: Intact atrial septum. Left to right atrial shunt, none. Tricuspid Valve: The tricuspid valve is structurally normal. There is no stenosis. There is physiologic regurgitation present. Mitral Valve: The mitral valve is structurally normal. There is no stenosis. There is no regurgitation present. Right Ventricle: The cavity size is normal. The wall thickness is normal. The systolic function is normal. RV Outflow Tract: The outflow tract is normal. Left Ventricle: The cavity size is normal. The wall thickness is normal. The systolic function is normal. LV Outflow Tract: The outflow tract is normal. Ventricular Septum: The septal motion is normal. There is no defect with no shunting. Pulmonary Valve: The pulmonic valve is structurally normal. There is no stenosis. There is physiologic regurgitation present. Aortic Valve: The aortic valve is structurally normal. There is no stenosis. There is no regurgitation present. Pulmonary Artery: The MPA is normal. The LPA is normal. The RPA is normal. Aorta: The aortic root is normal. The aortic arch is patent. The arch sidedness is left aortic arch. PDA: No PDA with no shunting. Coronary Arteries: Limited views but appear normal. Pericardium: No pericardial effusion. MEASUREMENTS: 2D Left Ventricle LVEDV;bp 55.1 cc Index 34.9 cc/m LV EF bp 69 % LVESV;bp 17.1 cc LV SV bp 38 cc Aortic Valve AV nik 19.1 mm (zsc -0.2) Aorta AoRdiam 23.2 mm (zsc -1.1) AAo 27.1 mm (zsc 1.4) MMODE Aorta Ao Rt 26 mm Ventricular Septum IVSd 7.9 mm (zsc -0.8) IVSs 10.7 mm (zsc -1) LVPW LVPWd 7.2 mm (zsc -1.1) LVPWs 8.6 mm (zsc -3.4) Ratios IVS/LVPW 1.1 LA/Ao 0.9 Left Atrium LAID 23 mm Left Ventricle LVEDV 65.9 cc LV EF 88.2 % LVESV 7.8 cc LV%fs 57.7 % LVIDd 39 mm (zsc -2.5) LV Mass 82.5 g (zsc -2.5) Index 52.2 g/m LVIDs 16.5 mm (zsc -4.4) LV SV 58.1 cc Signed 03/26/2017 03:02 PM Katelyn Hernandez MD Yomi Hernandez MD ECHO ORDERABLES [facility] [address] [place] [address] * EKG 15-LEAD (03/26/2017 8:20 AM CDT) Ventricular Rate 72 BPM CG MUSE Atrial Rate 72 BPM CG MUSE P-R Interval 128 ms CG MUSE QRS Duration ms 98 ms CG MUSE Q-T Interval ms 384 ms CG MUSE QTC Calculation (Bezet) 420 ms CG MUSE Calculated P [place] 56 degrees CG MUSE Calculated R [place] 116 degrees CG MUSE Calculated T [place] 54 degrees CG MUSE Interpretation EKG Sinus rhythm with marked sinus arrhythmia , Ectopic atrial rhythm with junctional escape complexes Rightward axis T wave abnormality in the anterior leads, maybe normal varient Abnormal ECG No previous ECGs available Confirmed by MD SWATI, YOMI ([id number]) on 03/26/2017 6:19:12 PM CG MUSE 03/26/2017 8:20 AM CDT 03/26/2017 6:19 PM CDT Yomi Hernandez MD ECG ORDERABLES CG MUSE Care Teams Engineering Supplies Sales Relationship Specialty Start Date End Date Crispin Cruz MD [address] [place] [address] PCP - General Family Medicine 03/26/17
--- OUTSIDE RECORDS SUMMARY | 2024-11-21 08:14 | XMS_ITS | Data Portability ---
Author Organization [facility] [place] Address [address] [place] [address] Assessment Encounter Date Assessment Date Assessment LastModified by Organization Details LastModified Time 01/03/2021 01/03/2021 nexplanon removed declines contraception WWE UTD [email or web address] Not available 01/03/2021 13:06:39 Plan of Treatment Reminders Order Date Submit Date Provider Last Modified By Organization Details Last Modified Time Details Appointments None recorded. Lab None recorded. Referral None recorded. Procedures None recorded. Surgeries None recorded. Imaging None recorded. Medication Orders nystatin-t riamcinolo ne 100,000 unit/gram- 0.1 % topical ointment 2019 020 [id number], [address] [place], [address], 12:42:18 Patient TargetsNo targets recorded. Patient Instructions Encounter Date Encounter Id Patient Instructions Last Modified By Organization Details Last Modified Time 05/17/2020 [id number] good vulvar care , finish diflucan start ointment f/u wwe [id number] Not available 05/17/2020 17:44:47 01/03/2021 [id number] learning about control [email or web address] Not available 01/03/2021 13:06:40 surgical trays* [email or web address] Not available 08/16/2021 14:41:40 Reason for Referral None Reported. Results Created Date Observation Date Name Description Value Unit Range Abnormal Flag Note LastModifiedBy Organization Detail LastModifiedTime 05/17/20 20 05/20/2020 bacte rial vagin osis + vagin itis panel , vagin al dorene sp. Not Detect ed normal Trich omona s vagin dante: DNA testi ng perfo rmed by Trans cript ion Media hiwot Ampli ficat ion (TMA) These resul ts shoul d be inter prete d in light of all clini corie and labor atory findi ngs. This assay is highl y accur ate, but rare false posit rakan and negat rakan resul ts may occur . Posit rakan resul ts in low preva lence popul ation s may requi re re-ev aluat ion. A negat rakan resul t does not precl ude a possi ble infec tion due to a speci men inade quacy or sampl ing error . Test perfo rmed by [facility], d/b/a [facility] judy, [address], [place] [address] , Dilan Padron ra, DO, Labor atory Direc tor. Arminda xavier a vagin dante, Hortensia da speci es: Genom ic DNA is isola hiwot from patie nt speci mens by stand sabiha labor atory techn iques and julio zed using custo m OpenA rray plate s, perfo rmed on the Quant Studi o 12K Flex Real Time PCR syste m. A posit rakan resul t is provi ded for patho genic bacte payal, virus and/o r funga l speci es based on detec tion of ampli ficat ion produ cts. Misty l vagin al antione resul ts of Misty l or [place] hiwot are deter mined by calcu latin g the ratio of the organ ism to the total bacte payal prese nt in the speci men, and bonny ring that ratio to a PathG roup patie nt popul ation . Overa ll resul ts of Misty l, Borde rline and Abnor mal are deter mined using a proba bilit y model which was devel oped by an exten sive julio sis and integ ratio n of clini corie thres holds for marke r organ isms on a large set of sympt omati c & asymp tomat ic speci mens. Patie nt popul ation s with diffe rent demog raphi cs from the Path rou model popul ation may have diffe rent indic ator organ isms with diffe rent relat rakan ratio s, which would influ ence the final resul ts. Resul ts shoul d be inter prete d in the sharon xt of all clini corie and labor atory findi ngs. The test was devel oped and its perfo rmanc e isaac cteri stics deter mined by [facility], [employer] d/b/a [facility] [address]. It has not been clear ed or appro orion by the U.S. Food and Drug Admin istra tion. The FDA has deter mined that such clear ance or appro paco is not neces erika. Perti nent refer ence inter vals are avail able from the [facility] at[facility] on reque st. Test( s) perfo rmed by [facility], [employer], d/b/a [facility] [address], [address], [place] [address] , Dilan Padron ra, DO, Labor atory Dire tor. Not Available [facility] ([facility]) [address] [facility] [address], [place], [address], 05/20/2020 15:27:07 05/17/20 20 05/20/2020 bacte rial vagin osis + vagin itis panel , vagin al gardnerella vaginalis Not Detect ed normal Trich omona s vagin dante: DNA testi ng perfo rmed by Trans cript ion Media hiwot Ampli ficat ion (TMA) These resul ts shoul d be inter prete d in light of all clini corie and labor atory findi ngs. This assay is highl y accur ate, but rare false posit rakan and negat rakan resul ts may occur . Posit rakan resul ts in low preva lence popul ation s may requi re re-ev aluat ion. A negat rakan resul t does not precl ude a possi ble infec tion due to a speci men inade quacy or sampl ing error . Test perfo rmed by [facility], d/b/a [facility] roulola, [address], [place] [address] , Dilan Padron ra, DO, Labor atory Direc tor. Gardn erell a vagin dante, Hortensia da speci es: Genom ic DNA is isola hiwot from patie nt speci mens by stand sabiha labor atory techn iques and julio zed using custo m OpenA rray plate s, perfo rmed on the [employer] Studi o 12K Flex Real Time PCR syste m. A posit rakan resul t is provi ded for patho genic bacte payal, virus and/o r funga l speci es based on detec tion of ampli ficat ion produ cts. Msity l vagin al antione resul ts of Misty l or [place] hiwot are deter mined by calcu latin g the ratio of the organ ism to the total bacte payal prese nt in the speci men, and bonny ring that ratio to a PathG roup patie nt popul ation . Overa ll resul ts of Misty l, Borde rline and Abnor mal are deter mined using a proba bilit y model which was devel oped by an exten sive julio sis and integ ratio n of clini corie thres holds for marke r organ isms on a large set of sympt omati c & asymp tomat ic speci mens. Patie nt popul ation s with diffe rent demog raphi cs from the PathG roup model popul ation may have diffe rent indic ator organ isms with diffe rent relat rakan ratio s, which would influ ence the final resul ts. Resul ts shoul d be inter prete d in the sharon xt of all clini corie and labor atory findi ngs. The test was devel oped and its perfo rmanc e isaac cteri stics deter mined by [facility] d/b/a [facility]oup. It has not been clear ed or appro orion by the U.S. Food and Drug Admin istra tion. The FDA has deter mined that such clear ance or appro paco is not neces erika. Perti nent refer ence inter vals are avail able from the labor atory on reque st. Test( s) perfo rmed by [facility], d/b/a [facility] roup, [address], [place] [address] , Dilan Padron ra, DO, Labor atory Dire tor. Not Available [facility]) [address], [place], [address], 05/20/2020 15:27:07 05/17/20 20 05/20/2020 bacte rial vagin osis + vagin itis panel , vagin al trichomonas vaginalis, aptima (panther) NOT DETECT ED normal Trich omona s vagin dante: DNA testi ng perfo rmed by Trans cript ion Media hiwot Ampli ficat ion (TMA) These resul ts shoul d be inter prete d in light of all clini corie and labor atory findi ngs. This assay is highl y accur ate, but rare false posit rakan and negat rakan resul ts may occur . Posit rakan resul ts in low preva lence popul ation s may requi re re-ev aluat ion. A negat rakan resul t does not precl ude a possi ble infec tion due to a speci men inade quacy or sampl ing error . Test perfo rmed by [facility], [employer], d/b/a [facility] roup, [address], [place] [address] , Dilan Padron ra, DO, Labor atory Direc tor. Arminda xavier a vagin dante, Hortensia da speci es: Genom ic DNA is isola hiwot from patie nt speci mens by stand sabiha labor atory techn iques and julio zed using custo m OpenA rray plate s, perfo rmed on the [employer] o 12K Flex Real Time PCR syste m. A posit rakan resul t is provi ded for patho genic bacte payal, virus and/o r funga l speci es based on detec tion of ampli ficat ion produ cts. Misty l vagin al antione resul ts of Misty l or [place] hiwot are deter mined by calcu latin g the ratio of the organ ism to the total bacte payal prese nt in the speci men, and bonny ring that ratio to a PathG roup patie nt popul ation . Overa ll resul ts of Misty l, Borde rline and Abnor mal are deter mined using a proba bilit y model which was devel oped by an exten sive julio sis and integ ratio n of clini corie thres holds for marke r organ isms on a large set of sympt omati c & asymp tomat ic speci mens. Patie nt popul ation s with diffe rent demog raphi cs from the PathG roup model popul ation may have diffe rent indic ator organ isms with diffe rent relat rakan ratio s, which would influ ence the final resul ts. Resul ts shoul d be inter prete d in the sharon xt of all clini corie and labor atory findi ngs. The test was devel oped and its perfo rmanc e isaac cteri stics deter mined by [employer], [employer] d/b/a [facility]LOAG. It has not been clear ed or appro orion by the U.S. Food and Drug Admin istra tion. The FDA has deter mined that such clear ance or appro paco is not neces erika. Perti nent refer ence inter vals are avail able from the labor atory on reque st. Test( s) perfo rmed by [facility], [employer], d/b/a [facility] roup, [address], [place] [address] , Dilan Padron ra, DO, Labor atory Direc tor. Not Available [facility] ([facility]) [address], [place], [address], 05/20/2020 15:27:07 Result Notes None recorded. Problems Name Problem SNOMED Code Status Onset Date Resolution Date Notes Provider Name and Address Organization Details Recorded Time Contrace ptive sheath status 921559433 Completed 201801/03/2021 Encounte r for initial prescrip tion of other contrace ptives;R ecorded Elsewher e: No [facility] S ource: EHR Exhibitions Curator sean: N Dee Dee ce ID: 0001 Rolando lable Time: 01:00:00 PM Sophia Hugo MD [address], [place], [address], [facility] 12:44:56 Amenorrh ea 82668972 Completed 201801/03/2021 Amenorrh ea;Recor ded Elsewher e: No [facility] S ource: EHR Exhibitions Curator sean: Rodolfo Funez ce ID: 0001 Rolando lable Time: 01:00:00 PM Sophia Hugo MD [address], [place], [address], [facility] 12:44:53 Pregnanc y test negative 608240111 Completed 201801/03/2021 Encounte r for pregnanc y test, result negative ;Recorde d Elsewher e: No [facility]: EHR Exhibitions Curator sean: Rodolfo Funez ce ID: 0001 Rolando lable Time: 01:00:00 PM Sophia Hugo MD [address], [place], [address], [facility] 12:45:01 Pelvic and perineal pain 895698050 Completed 201801/03/2021 Pelvic and perineal pain;Rec orded Elsewher e: No Locat ion: [facility] S ource: EHR Exhibitions Curator sean: N Dee Dee ce ID: 0001 Rolando lable Time: 01:00:00 PM Sophia Hugo MD [address], [place], [address], [facility] 1 12:45:06 Educatio n Completed 201801/03/2021 Encounte r for other general counseli ng and advice on contrace ption;Re corded Elsewher e: No Locat ion: [facility] S ource: EHR Exhibitions Curator sean: N Dee Dee ce ID: 0001 Rolando lable Time: 01:00:00 PM Sophia Hugo MD [address], [place], [address], [facility] 12:44:59 Procedur e Completed 201801/03/2021 Encounte r for checking , reinsert ion or removal of implanta ble subderma l contrace ptive;Re corded Elsewher e: No Locat ion: [facility] S ource: EHR Exhibitions Curator sean: Rodolfo Funez ce ID: 0001 Rolando lable Time: 01:00:00 PM Sophia Hugo MD [address], [place], [address], [facility] 12:45:04 Problem Notes None recorded. Procedures Surgical History Date Name Laterality Status Provider Name and Address Organization Details Recorded Time 01/04/20 21 Nexplanon Removal completed Sophia Hugo MD [address], [place], [address], [facility] 01/03/2021 13:05:36 09/09/19 19 open reduction of dislocation of finger completed Rubia Mejia [facility] 05/17/2020 20:48:51 09/09/19 17 open reduction of dislocation of finger completed Rubia Mejia [facility] 05/17/2020 20:48:40 09/09/19 13 Unlisted px vestibule mouth completed Rubia Mejia [facility] 05/17/2020 20:49:03 Imaging Results None recorded. Procedure Notes None recorded. Medical Equipment None Reported. Allergies Allergen ID Allergen Name Allergen Category Reaction Reaction Severity Criticality Documentation Date Start Date Code Code System Note Provider Name and Address Organization Details Recorded Time 33195 acetamino phen medicatio n Not available Not available Not available 08/26/2020 161 RxNorm Comme nt: [facility] Agent : Tylen ol; Not Available [facility] 0 14:17:46 1970 Product containin g penicilli n (product) medicatio n Not available Not available Not available 05/17/2020 09396 8001 SNOMED Rubia Mejia [place], [place] - [facility] 0 17:40:44 Medications Name Sig Start Date Stop Date Status Note LastModified by Organization Details LastModified Time fluconazo le 150 mg tablet 01/03 completed Not Available Not Available Not Available ondansetr on HCl 4 mg tablet 01/03 completed Not Available Not Available Not Available ceftriaxo ne 250 mg solution for injection inject (125MG) by intramus cular route as a single dose 01/03 completed Prescrib ed Elsewher e: No Locat ion: [facility]ify By: kpanyik Encoundonnie r DateTime : 05/21/20 19 01:00:00 PM Not Available Not Available Not Available metronida zole 500 mg tablet take 1 tablet by oral route every 12 hours 05/17 completed Not Available Not Available Not Available ciproflox acin 250 mg tablet 01/03 completed Not Available Not Available Not Available nystatin- triamcino lone 100,000 unit/gram -0.1 % topical ointment APPLY TO THE AFFECTED AREA(S) BY TOPICAL ROUTE 2 TIMES PER DAY 01/03 completed Not Available Not Available Not Available oseltamiv ir 75 mg capsule 05/17 completed Not Available Not Available Not Available nystatin 100,000 unit/gram topical cream 01/03 completed Not Available Not Available Not Available omeprazol e 20 mg capsule,d elayed release 01/03 completed Not Available Not Available Not Available mirtazapi ne 15 mg tablet 01/03 completed Not Available Not Available Not Available ondansetr on 4 mg disintegr ating tablet 05/17 completed Not Available Not Available Not Available doxycycli ne hyclate 100 mg tablet take 1 tablet by oral route 2 times every day 05/17 completed Not Available Not Available Not Available escitalop patt 5 mg tablet 01/03 completed Not Available Not Available Not Available Nexplanon 68 mg subdermal implant Inject by subcutan eous route. 2018 active removal date 2 Not Available Not Available Not Available Vitals Date Recorded Body height Body mass index (BMI) Percentile per age and sex Body mass index (BMI) Body weight Systolic blood pressure Diastolic blood pressure Provider Name and Address Organization Details Last Updated DateTime 1 157.48 cm 10 % 18.5 kg/m2 63496.8 3 g 116 mm[Hg] 78 mm[Hg] Radha Morris [facility] 1 12:41:58 Date Recorded Body height Body mass index (BMI) Percentile per age and sex Body mass index (BMI) Body weight Systolic blood pressure Diastolic blood pressure Provider Name and Address Organization Details Last Updated DateTime 0 157.48 cm 14 % 18.8 kg/m2 01704.0 1 g 102 mm[Hg] 65 mm[Hg] Rubia Mejia [facility] 0 17:40:34 Social History Question Answer Notes LastModified by Organizat ion Details LastModified Time Tobacco Smoking Status Current Every Day Smoker Rubia Mejia [facility] 05/17/2020 20:47:51 What Is Your Level Of Alcohol Consumption? Occasional [email or web address] Information not available 05/17/2020 Do You Or Have You Ever Used E-cigarettes Or Vape? Current User Of Electronic Cigarettes [email or web address] Information not available 05/17/2020 What Was The Date Of Your Most Recent Tobacco Screening? 05/17/2020 [email or web address] Information not available 05/17/2020 Do You Or Have You Ever Used Smokeless Tobacco? Never Used Smokeless Tobacco [email or web address] Information not available 05/17/2020 How Much Tobacco Do You Smoke? 1 PPW [email or web address] Information not available 05/17/2020 Sex: Unknown Functional Status Question Answer Note LastModified by Organizat ion Details LastModified Time What is your exercise level? Occasional [email or web address] Information not available 05/17/2020 Mental Status None recorded. Family History Relationship Description Onset Age of this Age Resolved Age Notes LastModified by Organization Details LastModified Time Maternal Grandfather Heart disease Not available 05/17 20:45:13 Maternal Grandfather Malignant tumor of colon [email or web address] Not available 05/17 20:45:33 Maternal Grandfather Hypercholest erolemia [email or web address] Not available 05/17 20:45:44 Maternal Grandfather Hypertensive disorder [email or web address] Not available 05/17 20:45:51 Maternal Grandmother Malignant tumor of colon [email or web address] Not available 05/17 20:45:33 Maternal Grandmother Malignant tumor of ovary [email or web address] Not available 05/17 20:46:05 Maternal Grandmother Malignant tumor of breast [email or web address] Not available 05/17 20:46:16 Maternal Grandmother Malignant tumor of cervix [email or web address] Not available 05/17 20:46:35 Maternal Grandmother Cyst of ovary [email or web address] Not available 05/17 20:46:54 Mother Cyst of ovary [email or web address] Not available 05/17 20:46:54 Mother Endometriosi s (clinical) [email or web address] Not available 20:47:25 Paternal Grandmother Diabetes mellitus [email or web address] Not available 05/17 20:47:36 Notes:Maternal grandfather: Heart disease, High cholesterol, Cancer, colon Maternal grandmother: Cancer, colon, Cancer, cervical, Cancer, ovarian, Cancer, breast Mother: ovarian cyst, Endometriosis, Bleeding disorder Paternal grandmother: Diabetes mellitus Medical History Condition Response Other Y Asthma Y Gynecological History Statement/Question Response Date of Last Pap Smear Current Control Method None Date of LMP 04/26/2020 LMP Approximate Obstetrics History GPAL:G 0 P 0 0 0 0 Past Encounters Encounter ID Performer Location Encounter Start Date Encounter Closed Date Diagnosis/Indication Diagnosis SNOMED-CT Code Diagnosis ICD10 Code Diagnosis Note [id number] Janny Case CNM [place] [address] [address] 05/17/2020 17:20:03 05/17/2020 18:09:30 Candidiasis of vagina 63437301 B37.3 [id number] Sophia Hugo MD [place] [address] [address] 01/03/2021 12:31:17 01/03/2021 13:08:50 Removal of subcutaneous contraceptive 775838640 Z30.46 Health Concerns Section Related Observation LastModified by Organization Detai ls LastModified Time None Recorded Concern Status LastModified by Organization Details LastModified Time None Recorded Advance Directives Directive None Recorded Payers Encounter Date Sequence Insurance Name Policy Number Policy Cordero Covered Member ID Cordero Member ID Guarantor Name 05/17/2020 1 [place] [id number] Brain Barrett [id number] Shade Hanna 01/03/2021 1 [place] [id number] Brain Barrett [id number] Shade Hanna Notes Date Note Type Note Provider Name and Address Organization Details Recorded Time 05/17/2020 text/html Vaginal/Vulvar ProblemReported bypatient.Notes:pcp gave her antibiotics for a yeast infection, itching burning worsened and pt to ED and given 3 diflucan sxs are improving slightly Janny Case CNM [address], [place], [address], [facility] 05/17/2020 17:44:59 01/03/2021 text/html Here for nexplan on removal. Has never liked it since placed 1.5 years ago, but now bleeding for 4 weeks and molina, wants it out. Planning condoms, maybe OCP in a bit. Sophia Hugo MD [address], [place], [address], [facility] 01/03/2021 13:07:03 OBGyn Episode No OBEpisode recorded.
--- OUTSIDE RECORDS SUMMARY | 2024-11-21 08:15 | XMS_ITS ---
Author Organization Unknown Address [address] [place] [phone] Phone Care Team Providers Care Tour Sales Representative Name Role Phone RAMIRO WAGNER Attending Unavailable LUCY USHA Primary Unavailable Immunization [...] 165 CVX HPV9 06/23/2012 Completed 165 CVX Results TEST URINE - Colle ct Date/Time: 11/08/2023 10:15 [facility] ID: [id number] [address] [place], [place], [id number] LOINC: Test Value Unit Reference Range Code Code System Flag URINE PREG NEGATIVE LUMBAR SPINE - Completed: 10:33 LOINC: EXAM DESCRIPTION: LUMBAR SPINE REASON FOR STUDY: NKI lower back pain no previous fx or surgery Duration: since 10/19/2023 TECHNIQUE: Frontal, lateral and cone-down radiographic view(s) of the lumbar spine. COMPARISON: None available FINDINGS: 5 [id number] lumbar type vertebral bodies. There is mild levoconvex curvature. Lumbar vertebral body heights and disc spaces are maintained. There is no significant facet sclerosis. IMPRESSION: The lumbar vertebral body heights are maintained. THIS IS AN ELECTRONICALLY VERIFIED FINAL REPORT 11/09/2023 6:49 AM - Electronically signed by Dorian Patricia D.O. AP: AP Report ID: [id number] Reading Location: [id number] Social History Type Status Start Date End Date Code Code Syst em Smoking History Unknown if ever smoked [id number] Sex Female Hospital Discharge Instructions Should you have any questions prior to discharge, please contact a member of your healthcare team. If you have left the hospital and have any questions, please contact your primary care physician. Reason For Referral No Data Found Plan of Treatment US Echo With Color ([id number]) 02/13/2024 Encounters Encounter Diagnosis Start Date Code Code Sys tem Pain in left shoulder 11/08/2023 SNOMED -CT Personal Care Team Section Performer Name Performer Role Active Date Inactive USHA Catherine PCP - Primary care physician Imaging Narrative Notes
--- OUTSIDE RECORDS SUMMARY | 2024-11-21 08:15 | XMS_ITS | Clinical Summary ---
Author Organization [facility] Address [address] [facility] [facility] [place] [address] Care Team Providers Care Burr Bench Operator Name Role Phone Crispin Cruz MD Primary Care Provider Source Comments [facility],non-owned Affiliates and Associated Physician Practices is amultiple site organization consisting of ambulatory clinics and hospital sitesin [place], [place], [place] and [place]. This disclosure is being madepursuant to the Care Everywhere program and may not contain all information available regarding this patient. Last updated 18.[facility] [employer] Allergies Active Allergy Reactions Criticality Noted Date Comments Acetaminophen 08/16/2015 Nausea, abdominal pain Medications * Be aware that medications may not be up to date on this document. Alwaysverify current medications with the patient. Medication Sig Dispensed Refills Start Date End Date Status aspirin-acetaminophen -caffeine 250-250-65 MG tablet Take 1 Tab by mouth every 4 hours as needed for Headache Active naproxen (NAPROSYN) 500 MG tablet Take 1 Tab by mouth as needed with food for Pain 15 Tab 5 08/16/2015 Active raNITIdine (ZANTAC) 300 MG tablet Take 300 mg by mouth once daily Active FLUoxetine (PROZAC) 20 MG capsule Take 20 mg by mouth once daily Active drospirenone-ethinyl estradiol (LORYNA) 3-0.02 MG tablet Take 1 tablet by mouth once daily Active ibuprofen (MOTRIN) 200 MG tablet Take by mouth every 6 hours as needed for Pain Active HYDROcodone-acetamino phen (NORCO) 5-325 MG tablet Take 1 tablet by mouth every 4 hours as needed for Pain Active Active Problems Problem Noted Date Diagnosed Date Head ache 07/30/2017 Migraine without aura and wi thout status migrainosus, not intractable POTS (postural orthostatic tachycardia syndrome) Syncope and collapse Family History Medical History Relation Name Comments Sudd. 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 Pulse 79 06/14/2017 7:49 AM CDT per p cp Temperature 35.9 C (96.6 F) 06/14/2017 7:49 AM CDT per pcp Respiratory Rate 16 03/26/2017 9:13 AM CDT Oxygen Saturation 99% 03/26/2017 9:13 AM CDT Inhaled Oxygen Concentration - - Weight 47.3 kg (104 lb 4.4 oz) 08/21/2018 8:43 A M HAM ROLLING 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 Height 159.8 cm (5' 2.91 ) 08/21/2018 8:43 AM CS T Body Mass Index 18.52 08/21/2018 8:43 AM 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 ROLLING 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 Plan of Treatment Health Maintenance Due Date Last Done Comments PAP SMEAR 2001 HIV SCREENING 02/15/2016 HPV VACCINE (1 - 3-dose series) 02/15/2016 CHLAMYDIA/GONORRHEA SCREENING 2017 MENINGOCOCCAL (Group B) VACC INE SHARED DECISION-MAKING (1 of 2 - Standard) 2017 HEPATITIS C SCREENING 02/10/2019 DTAP/TDAP/TD VACCINES (1 - Tdap) 02/15/2020 HEPATITIS B VACCINE (1 of 3 - 19+ 3-dose series) 02/15/2020 PNEUMOCOCCAL VACCINE (1 of 2 - PCV) 02/15/2020 COVID-19 VACCINE (1 - 2023-2 5 season) 2024 INFLUENZA VACCINE (#1) 2024 DEPRESSION SCREENING 09/09/2024 ZOSTER VACCINE (1 of 2) 2051 HIB VACCINE Aged Out No longer eligi ble based on patient's age to complete this topic MENINGOCOCCAL GROUPS A/C/Y/W VACCINE Aged Out No longer eligible b ased on patient's age to complete this topic Care Teams Burr Bench Operator Relationship Specialty Start Date End Date Crispin Cruz MD [address] [place] [phone] PCP - General Family Medicine 03/26/17
--- OUTSIDE RECORDS SUMMARY | 2024-11-21 08:15 | XMS_ITS ---
Author Organization Unknown Address [address] [place] [phone] Phone Care Team Providers Care Diabetes Nurse Name Role Phone EDWARD ANASTACIOANGYAshok Attending Unavailable [...] CVX HPV9 06/23/2012 Completed 165 CVX Results US ECHO W/ COLOR - Completed : 02/13/2024 15:34 LOINC: See Scanned Image Attachment for Report Dictated By: Trans Initials: BG Trans Date: 02/18/24 15:21 <<REPDIST>> Social History Type Status Start Date End Date Code Code Syst em Smoking History Unknown if ever smoked [id number] Sex Female Hospital Discharge Instructions Should you have any questions prior to discharge, please contact a member of your healthcare team. If you have left the hospital and have any questions, please contact your primary care physician. Reason For Referral No Data Found Plan of Treatment US Echo With Color ([id number]) 02/13/2024 Encounters Encounter Diagnosis Start Date Code Code Sys tem Electrocardiogram abnormal 02/13/2024 657554261 S NOMED-CT Personal Care Team Section Performer Name Performer Role Active Date Inactive USHA Catherine PCP - Primary care physician Imaging Narrative Notes [facility] 02/18/2024 15:21 [place] [id number] RADIOLOGY REPORT Patient Number: [id number] Patient Name: FLOR RAMIREZ Type: O/P MR Number: [id number] : 2000 Age: 24 Sex: F Room #: Admit Date: 02/13/24 Discharge Date 02/13/24 Ordering Physician: EDWARD DIOR [facility] Physician: LUCY Lackey Physician: X-Ray Number : [id number] US ECHO W/ COLOR [id number] COMPLETE:02/13/24 15:34 APC [id number] (REASON-ECHO COMPLTE: abn ekg See Scanned Image Attachment for Report Dictated By: Radha Initials: Trans Date: 02/18/24 15:21 <<REPDIST>>
--- OUTSIDE RECORDS SUMMARY | 2024-11-21 08:15 | XMS_ITS | Clinical Summary ---
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 NEXPLANON Active ondansetron (ZOFRAN ODT) 4 MG TABLET DISPERSIBLE Take 1 Tab by mouth every 8 hours as needed for Nausea - 1st line. 20 Tab ` 0 Active ondansetron (ZOFRAN) 4 MG Tablet Take 1 Tab by mouth every 8 hours as needed for Nausea - 1st line. 15 Tab 1 0 Active omeprazole (PRILOSEC) 20 MG CAPSULE DELAYED RELEASE Take 1 Cap by mouth daily. 90 Cap 3 0 Active hyoscyamine (ANASPAZ, LEVSIN) 0.125 MG TabletIndication s:Gilbert's syndrome,Right upper quadrant abdominal pain Take 1 Tab by mouth every 6 hours as needed for Cramping. 60 Tab 1 0 Active Active Problems No known active problems Family History Medical History Relation Name Comments Diabetes Maternal Grandfather Cervical Cancer Maternal Grandmother Diabetes Maternal Grandmother Liver Disease Maternal Uncle had transpla nt Relation Name Status Comments Father Alive Maternal Grandfather Maternal Grandmother Maternal Uncle Mother Alive Social History Tobacco Use Types Packs/Day Years Used Date Smoking Tobacco: Never Smokeless Tobacco: Never Tobacco Cessation:Counseling Given: No Alcohol Use Standard Drinks/Week Comments Never 0 (1 standard drink = 0.6 oz pur e alcohol) AUDIT-C Answer Date Recorded Frequency of Alcohol Consumption Never 09/11/2019 Average Number of Drinks Not on file 020 Frequency of Binge Drinking Not on file 11/2019 Sexually Active Control Partners Comments Yes Comments No Sex and Gender Information Value Date Recorded Sex Assigned at Not on file Legal Sex Female 7:18 AM GARMENT SEWER HAND Gender Identity Not on file Sexual Orientation Not on file Last Filed Vital Signs Vital Sign Reading Time Taken Comments Blood Pressure 100/74 02/10/2020 10:04 AM CDT Pulse 92 02/10/2020 10:04 AM CDT Temperature 36.4 C (97.6 F) 02/10/2020 10:04 AM CDT Respiratory Rate 16 02/10/2020 10:04 AM CDT Oxygen Saturation 98% 02/10/2020 10:04 AM CDT Inhaled Oxygen Concentration - - Weight 44 kg (97 lb) 02/10/2020 10:04 AM CDT Height 157.5 cm (5' 2 ) 02/10/2020 10:04 AM CDT Body Mass Index 17.74 02/10/2020 10:04 AM CDT Plan of Treatment Health Maintenance Due Date Last Done Comments Meningococcal B Immunization (1 of 2 - Standard) 2017 Pap Smear 2022 Influenza Immunization (#1) 2024 06/03/2013, 0 04/23/2012 SARS-COV-2 Immunization ( - season) 2024 Respiratory Syncytial Virus (RSV) Immunization (Adult) (1 - 1-dose 75+ series) 02/15/2076 Hepatitis B Immunization Completed 002, 2001, 2001 Pneumococcal Immunization Combined Aged Out 06/29/2002, 2001, 2001, Additional history exists No longer eligible based on patient's age to complete this topic TdaP Immunization Completed 04/23/2012 Human Papillomavirus (HPV) Immunization Completed 06/03/2013, 06/23/2012, 04/23/2012 DTaP/Tdap/Td Immunization Discontinued 2015, 04/23/2012, 04/22/2006, Additional history exists Meningococcal Immunization (ACWY) Completed 05/26/2018, 04/23/2012 Hepatitis C Virus (HCV) Screening Completed 09/11/2019 Rotavirus Immunization Aged Out No lo nger eligible based on patient's age to complete this topic Procedures Procedure Name Priority Date/Time Associated Diagnosis Comments HEPATITIS PANEL ACUTE (AHP) Routine 09/11/2019 11:48 AM GARMENT SEWER HAND Serum total bilirubin elevated Abnormal weight loss Chronic nausea Right upper quadrant abdominal pain from Last 3 Months or Most Recently Relevant to Health Maintenance Results * HEPATITIS PANEL ACUTE (AHP) (09/11/2019 11:48 AM GARMENT SEWER HAND) HEPATITIS A IGM ANTIBODY NON DETECTED NON DETECTED 09/11/2019 9:25 PM GARMENT SEWER HAND [facility] Comment: IGM Antibodies to HAV not detected. Does not exclude early acute or recovered HAV infection. HEP B CORE AB (IGM) NON DETECTED NON DETECTED 09/11/2019 9:25 PM GARMENT SEWER HAND [facility] Comment:IGM anti-HBC not det ected. Does not exclude the possibility of exposure to or infection with HBV. HEPATITIS B SURFACE ANTIGEN NON DETECTED NON DETECTED 09/11/2019 9:25 PM GARMENT SEWER HAND [facility] Comment:A nonreactive test r esult does not exclude the possibility of exposure to or infection with Hepatitis B virus. A nonreactive test result in individuals with prior exposure to hepatitis B may be due to antigen levels below the detection limit of this assay or lack of antigen reactivity to the antibodies in this assay. hepatitis C antibody 0.17 <1 S/CO 09/11/2019 9:25 PM GARMENT SEWER HAND [facility] Comment: Signal/Cutoff ratio < 0.79 is Nondetected Signal/Cutoff ratio 0.80-0.99 is Grayzone Signal/Cutoff ratio > 0.99 is Detected Supplemental assays are recommended if signal/cutoff ratio is >/=1.00. Signal/cutoff ratio result >/= 5.00 is 97% predictive of positivity for recombinant immunoblot assay (RIBA) and will be reported to the [place] Department of Public Health as required. Blood specimen (specimen) Venipuncture / Unknown 09/11/2019 11:48 AM GARMENT SEWER HAND 09/11/2019 12:57 PM GARMENT SEWER HAND us Daphne Lawrence CIVIL TECHNICIAN, MAINFRAME APPLICATIONS DEVELOPER HEMATOLOGY ORDERA BLES Final Result [facility] [address] [place] [address], from Last 3 Months or Most Recently Relevant to Health Maintenance Insurance [facility] [email or web address]] Care Teams Car Pincher Relationship Specialty Start Date End Date Crispin Cruz MD [address] [place] [address] PCP - General Pediatrics 09/11/19
--- OUTSIDE RECORDS SUMMARY | 2024-11-21 08:15 | XMS_ITS | Referral Summary ---
Author Organization [facility] Address [address] [place] [address] Care Team Providers Care Crew Leader/Control Room Operator Name Role Phone Crispin Cruz MD Primary Care Provider Source Comments [facility],non-owned Affiliates and Associated Physician Practices is amultiple site organization consisting of ambulatory clinics and hospital sitesin [place], [place], [place] and [place]. This disclosure is being madepursuant to the Care Everywhere program and may not contain all information available regarding this patient. 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 Pulse 79 06/14/2017 7:49 AM CDT per p cp Temperature 35.9 C (96.6 F) 06/14/2017 7:49 AM CDT per pcp Respiratory Rate 16 03/26/2017 9:13 AM CDT Oxygen Saturation 99% 03/26/2017 9:13 AM CDT Inhaled Oxygen Concentration - - Weight 47.3 kg (104 lb 4.4 oz) 08/21/2018 8:43 A M MONOMER RECOVERY OPERATOR Height 159.8 cm (5' 2.91 ) 08/21/2018 8:43 AM CS T Body Mass Index 18.52 08/21/2018 8:43 AM MONOMER RECOVERY OPERATOR Plan of Treatment Not on file Care Teams Crew Leader/Control Room Operator Relationship Specialty Start Date End Date Crispin Cruz MD [address] [place] [address] PCP - General Family Medicine 03/26/17
--- OUTSIDE RECORDS SUMMARY | 2024-11-21 08:15 | XMS_ITS ---
Author Organization Unknown Address [address] [place] [phone] Phone Care Team Providers Care Nitric Acid Plant Operator Name Role Phone EDWARD ANASTACIOANGYAshok Attending Unavailable LUCY [facility] Primary Unavailable Immunization Immunization Date Status Additional [...] Smoking History Unknown if ever smoked [id number] Sex Female Hospital Discharge Instructions Should you have any questions prior to discharge, please contact a member of your healthcare team. If you have left the hospital and have any questions, please contact your primary care physician. Reason For Referral No Data Found Plan of Treatment US Echo With Color ([id number]) 02/13/2024 Encounters Encounter Diagnosis Start Date Code Code Sys tem Abnormal electrocardiogram [ECG] [EKG] 10/29/2023 SNOMED-CT Personal Care Team Section Performer Name Performer Role Active Date Inactive USHA Catherine PCP - Primary care physician
--- NOTE | 2024-11-21 08:18 | ED_ITS ---
HPI - General Adult General Chief complaint: Abdominal Pain Stated complaint: lower abd pain Time Seen by Provider: 11/21/24 08:17 History of Present Illness HPI narrative: Patient reports an approximate 12 hour history sharp intense suprapubic pain radiating to her lower right quadrant. She states that this pain started following consensual intercourse with her male partner. She states that she has never had pain like this before. Associated symptoms include some hot flashes and nausea. The patient reports that she was previously using Depo-Provera as control but has not had a shot 5-6 months. She was plenty to get an IUD but was unable to do so due to insurance coverage. She is not currently on any control. Last menstrual period was October 20, 2024. Patient reports that over the past 1-2 months she has had worsening sensation of urinary retention. She reports that she has had thick white vaginal discharge. she has had previous yeast infections but never associated with pain like this. She reports a history of IBS and states that she has not had a bowel movement since the preceding night which is unusual for her. Patient has a family history of multiple first-degree relatives with ovarian cysts. she has not had vomiting or diarrhea. denies any vaginal bleeding at this time. She denies shortness of breath or chest pain. She denies fevers aside from the hot flashes that she reported. She denies any vaginal bleeding or passing clots. Related Data Home Medications ?Medication ?Instructions ?Recorded ?Confirmed ?Last Taken ?Type fluticasone propionate 50 1 spray intranasal Q12H 11/21/24 Unknown History mcg/actuation nasal spray,suspension Allergies Allergy/AdvReac Type Severity Reaction Status Date / Time Penicillins Allergy Mild Rash Verified 11/21/24 08:29 [facility] Past Medical History Medical History (Updated 11/21/24 @ 10:06 by Raymond Cavazos MD) Asthma [place] syndrome Family History Family History Other No problems noted. Social History Social History Tobacco type: e-cigarettes/vaping Alcohol intake: never Substance use: never Living arrangements: with family Gender identity (if verbalized by the patient): Female Sexual Orientation (if Verbalized by the Patient): Straight or Heterosexual Exam 2 Narrative: GEN: Awake, alert, and appropriate to situation. Well appearing, well nourished, nontoxic, NAD. HEENT: No rhinorrhea noted, mucous membranes moist. No scleral icterus or conjunctival injection. CV: Normal rate, regular rhythm, S1S2 no M/G/R. 2+ distal pulses all extremities. No peripheral edema noted. PULM: Non-labored respiration. Clear to auscultation bilaterally. No wheezes, rales, rhonchi. GI: mild periumbilical and lower right quadrant tenderness. No rebound tenderness. Negative bed bump. No rigidity, distention or guarding.? NEURO: Normal speech. No lateralizing or focal deficits noted. Course Course Emergency Course: Ordering labs to include CBC, CMP, UA, urine test, , PCR for gonorrhea and chlamydia and Trichomonas. CT scan abdomen with contrast. Naproxen for pain as requested by patient. Vital Signs Vital signs: Vital Signs Temperature 36.6 C 11/21/24 08:22 Pulse Rate 69 11/21/24 08:22 Respiratory Rate 20 11/21/24 08:22 Blood Pressure 103/50 L 11/21/24 08:22 Pulse Oximetry 100 11/21/24 08:22 Oxygen Delivery Room Air 11/21/24 08:22 Temperature 36.6 C 11/21/24 08:22 Pulse Rate 69 11/21/24 08:22 Respiratory Rate 20 11/21/24 08:22 Blood Pressure 103/50 L 11/21/24 08:22 Pulse Oximetry 100 11/21/24 08:22 Oxygen Delivery Room Air 11/21/24 08:22 Medical Decision Making [facility] Narrative Medical decision making narrative: Patient was placed in Room #:? One Independent Historian: the patient External Source Review: medical records Differential diagnosis includes but not limited to:? initial differential diagnosis quite broad including appendicitis, colitis, urinary tract infection, , ovarian cyst. Medications were Reviewed: home medications Independently Interpreted by me: labs Medications, treatment, ED course: Patient received naproxen for pain and a 1 L fluid bolus due to some evidence of dehydration on her lab work and urinalysis. CT scan shows a mildly complex 3.6 cm right ovarian cyst. This is highly consistent with the location of patient's pain and her history of intense pain which then subsided likely after cyst rupture. Social situation impacting patients care: Patient lives independently within the community and she has a primary care and assistant commissioner to follow up with. Shared decision making:? discussed with the patient that her vital signs and labs today are reassuring then in cases like this ovarian cysts are often at least initially treated with pain management and observation. I recommended to her strongly that she follow up with her PCP and with her supervisor home economics as the they will likely want to obtain a pelvic ultrasound as the next step in her evaluation. The patient was given return precautions for signs and symptoms of acute infection or bleeding. She is comfortable with the plan of discharge for the ER and follow up with her regular doctors in the community. Accepting physician: Trang DISCHARGE DIAGNOSIS: ovarian cyst DISPOSITION: home with self-care CONDITION AT DISCHARGE:? stable Vital Signs Vital Signs: Vital Signs Temperature 36.6 C 11/21/24 08:22 Pulse Rate 69 11/21/24 08:22 Respiratory Rate 20 11/21/24 08:22 Blood Pressure 103/50 L 11/21/24 08:22 Pulse Oximetry 100 11/21/24 08:22 Oxygen Delivery Room Air 11/21/24 08:22 Temperature 36.6 C 11/21/24 08:22 Pulse Rate 69 11/21/24 08:22 Respiratory Rate 20 11/21/24 08:22 Blood Pressure 103/50 L 11/21/24 08:22 Pulse Oximetry 100 11/21/24 08:22 Oxygen Delivery Room Air 11/21/24 08:22 Lab Data 11/21/24 08:40 11/21/24 08:40 Labs: Lab Results 11/21/24 11/21/24 Range/Units 08:40 08:41 WBC 5.3 (4.8-10.8) K/mm3 RBC 4.69 (4.20-5.40) M/mm3 Hgb 13.6 (12.0-15.0) g/dL Hct 41.6 (35.0-49.0) % MCV 88.7 (78.0-102.0) fL MCH 29.0 (27.0-31.0) pg MCHC 32.7 (32-36) g/dL RDW 12.2 (11.6-14.4) % Plt Count 190 (150-420) K/mm3 MPV 11.2 (9.2-11.8) fl Sodium 145 (136-145) mmol/L Potassium 4.2 (3.5-5.1) mmol/L Chloride 107 (98-108) mmol/L Carbon Dioxide 28 (21-32) mmol/L Anion Gap 10 (4-12) mmol/L BUN 13 (7-18) mg/dL Creatinine 0.85 (0.55-1.02) mg/dL Estim Creat Clear Calc 71 ml/min Estimated GFR > 60 (59 - ) Glucose 87 (70-99) mg/dL Calculated Osmolality 299 H (285-295) mOsm/kg Calcium 9.0 (8.5-10.1) mg/dL Total Bilirubin 1.7 H (0.00-1.00) mg/dL AST 18 (15-37) U/L ALT 32 (14-59) U/L Alkaline Phosphatase 121 H (46-116) U/L Total Protein 7.0 (6.4-8.2) g/dL Albumin 4.0 (3.4-5.0) g/dL Urine Color Light yellow (Yellow) Urine Appearance Clear (Clear) Urine pH 6.5 (5.0-8.0) Ur Specific [place] 1.025 H (1.010-1.020) Urine Protein Negative (Negative) Urine Glucose (UA) Negative (Negative) Urine Ketones Negative (Negative) Ur Blood (Man) Negative (Negative) Urine Nitrate Negative (Negative) Urine Bilirubin Negative (Negative) Urine Urobilinogen 0.2 (0.2-1.0) mg/dL Leukocyte Esterase Rfl Negative (Negative) RORY/UL Urine Test Negative CSF HIV-1 p24 Ag Scrn Negative (Negative) RPR Pending RPR Titer Add Testing Pending C. trachomatis (PCR) Pending HIV-1 Antibody Cancelled HIV-1 RNA, Qual (TMA) Cancelled HIV-2 Antibody Cancelled HIV 1&2 Ag/Ab, 4th Gen Cancelled HIV 1&2 Antibody Rapid Negative (Negative) N. gonorrhoeae (PCR) Pending T. vaginalis (PCR) Pending Discharge Plan Discharge Clinical Impression: Ovarian cyst Patient Disposition: Home, Self-Care Condition: Stable Instructions: Antibiotic Form, Ovarian Cyst (ED), Ruptured Ovarian Cyst (ED) Additional Instructions: your CT scan shows that you have a 3.6 cm mildly complex right ovarian cyst. This is quite consistent with the pain you described. Your vital signs and her lab work are otherwise very reassuring although you do appear to be mildly dehydrated. Cases like this typically monitored and treated with pain medications. Per your request I have sent a prescription for naproxen to your pharmacy of record. Please call your primary care doctor 1st thing on Saturday morning to arrange appointment for follow-up. Your primary care doctor may want to order a pelvic ultrasound for you for additional follow-up. Return to the emergency department or call 911 if? you develop high fever, shaking chills, or are unable to tolerate food or? fluids, have decreased urination, or are too sick to get out of bed. Return to the emergency department if you develop new or acute pain, if you have uncontrolled vaginal bleeding, or if you feel faint or weak or short of breath. Patient Language: Urdu Prescriptions: New naproxen 250 mg tablet 250 mg PO BID PRN (Reason: pain) Qty: 14 0RF No Action fluticasone propionate 50 mcg/actuation spray,suspension 1 spray INTRANASAL Q12H Follow-up/Referrals: UNKNOWN,DOCTOR [Non-Staff] - Time of Disposition: 10:07
[2024-11-21 08:22] VITALS: BP 103/50; PULSE 69; RESP 20; TEMP 36.6; O2SAT 100
[2024-11-21 08:44] LABS: Hematocrit 41.6 % (35.0-49.0); Hemoglobin 13.6 g/dL (12.0-15.0); Mean Corpuscular HGB Conc 32.7 g/dL (32-36); Mean Corpuscular Volume 88.7 fL (78.0-102.0); Mean Platelet Volume 11.2 fl (9.2-11.8); Platelet Count Result 190 K/mm3 (150-420); Red Blood Count 4.69 M/mm3 (4.20-5.40); Red Cell Distribution Width 12.2 % (11.6-14.4); White Blood Count 5.3 K/mm3 (4.8-10.8)
[2024-11-21 08:50] LABS: Pregnancy On Board Control Positive; Urine Pregnancy Test Negative
[2024-11-21 08:58] LABS: Add Urine Microscopic? NO; Appearance Urine Clear (Clear); Bilirubin Urine Negative (Negative); Blood Urine Negative (Negative); Color Urine Light Yellow (Yellow); Glucose Urine UA Negative (Negative); Ketones Urine Negative (Negative); Leukocyte Esterase Ur Negative LEU/UL (Negative); Nitrate Urine Negative (Negative); Protein Urine Negative (Negative); Specific Grav Ur 1.025 (1.010-1.020); Urobilinogen Urine 0.2 mg/dL (0.2-1.0); pH Urine 6.5 (5.0-8.0)
[2024-11-21 09:00] LABS: Alanine Aminotransferase 32 U/L (14-59); Alkaline Phosphatase 121 U/L (46-116); Anion Gap 10 mmol/L (4-12); Aspartate Amino Transferase 18 U/L (15-37); Bilirubin,Total 1.7 mg/dL (0.00-1.00); Blood Urea Nitrogen 13 mg/dL (7-18); Carbon Dioxide 28 mmol/L (21-32); Chloride 107 mmol/L (98-108); Estimated CRCL calculation 71 ml/min; Estimated Glomerular Filt Rate > 60; Glucose 87 mg/dL (70-99); Osmolality Calculated 299 mOsm/kg (285-295); Potassium 4.2 mmol/L (3.5-5.1); Sodium 145 mmol/L (136-145)
[2024-11-21] MEDS: NAPROXEN 250 MG TABLET 500 MG PO (09:09)
[2024-11-21 09:17] LABS: HIV 1 P24 AG Negative (Negative); HIV 1/2 AB Negative (Negative)
[2024-11-21] MEDS: SODIUM CHLORIDE 0.9% IV 1,000 ML 999 ML IV CONT (09:32)
--- OUTSIDE RECORDS SUMMARY | 2024-11-21 10:08 | XMS_ITS | Clinical Summary ---
Author Organization [facility] Address [address] [address] Phone Care Team Providers Care Dobby Looms Pegger Name Role Phone Crispin Cruz MD Primary Care Provider [phone] Allergies Active Allergy Reactions Criticality Noted Date [...] on file Legal Sex Female 7:18 AM HOME HEALTH ATTENDANT Gender Identity Not on file Sexual Orientation [...] PANEL ACUTE (AHP) Routine 09/11/2019 11:48 AM HOME HEALTH ATTENDANT Serum total bilirubin elevated Abnormal weight loss Chronic nausea Right upper quadrant abdominal pain from Last 3 Months or Most Recently Relevant to Health Maintenance Results * HEPATITIS PANEL ACUTE (AHP) (09/11/2019 11:48 AM HOME HEALTH ATTENDANT) HEPATITIS A IGM ANTIBODY NON DETECTED NON DETECTED 09/11/2019 9:25 PM HOME HEALTH ATTENDANT [facility] Comment: IGM Antibodies to HAV not detected. Does not exclude early acute or recovered HAV infection. HEP B CORE AB (IGM) NON DETECTED NON DETECTED 09/11/2019 9:25 PM HOME HEALTH ATTENDANT [facility] Comment:IGM anti-HBC not det ected. Does not exclude the possibility of exposure to or infection with HBV. HEPATITIS B SURFACE ANTIGEN NON DETECTED NON DETECTED 09/11/2019 9:25 PM HOME HEALTH ATTENDANT [facility] Comment:A nonreactive test r esult does not [...] antibody 0.17 <1 S/CO 09/11/2019 9:25 PM HOME HEALTH ATTENDANT [facility] Comment: Signal/Cutoff ratio < 0.79 is Nondetected Signal/Cutoff ratio 0.80-0.99 is Grayzone Signal/Cutoff ratio > 0.99 is Detected Supplemental assays are recommended if signal/cutoff ratio is >/=1.00. Signal/cutoff ratio result >/= 5.00 is 97% predictive of positivity for recombinant immunoblot assay (RIBA) and will be reported to the [place] Department of Public [facility] as required. Blood specimen (specimen) Venipuncture / Unknown 09/11/2019 11:48 AM HOME HEALTH ATTENDANT 09/11/2019 12:57 PM HOME HEALTH ATTENDANT us Daphne Lawrence GAS TURBINE MECHANIC, CHANNEL DEVELOPMENT MANAGER HEMATOLOGY ORDERA BLES Final Result [facility] [address] [place] [address], from Last 3 Months or Most Recently Relevant to Health Maintenance Insurance [facility] Care Teams Dobby Looms Pegger Relationship Specialty Start Date End Date Crispin Cruz MD [address] [place] [address] PCP - General Pediatrics 09/11/19
--- OUTSIDE RECORDS SUMMARY | 2024-11-21 10:08 | XMS_ITS ---
Author Organization Unknown Address [address] [place] [phone] Phone Care Team Providers Care Meals On Wheels Driver Name Role Phone RAMIRO WAGNER Attending Unavailable [...] URINE - Colle ct Date/Time: 11/08/2023 10:15 [facility] ID: [id number] [address] [place], [place], [id number] LOINC: Test Value Unit Reference Range Code Code System Flag URINE PREG NEGATIVE LUMBAR SPINE - Completed: 10:33 LOINC: EXAM DESCRIPTION: LUMBAR SPINE REASON FOR STUDY: NKI lower back pain no previous fx or surgery Duration: since 10/19/2023 TECHNIQUE: Frontal, lateral and cone-down radiographic view(s) of the lumbar spine. COMPARISON: None available FINDINGS: 5 [id number] lumbar type vertebral bodies. There is mild levoconvex curvature. Lumbar vertebral body heights and disc spaces are maintained. There is no significant facet sclerosis. IMPRESSION: The lumbar vertebral body heights are maintained. THIS IS AN ELECTRONICALLY VERIFIED FINAL REPORT 11/09/2023 6:49 AM - Electronically signed by Dorian Patricia D.O. AP: AP Report ID: [id number] Reading Location: [id number] Social History Type Status Start Date End Date Code Code Syst em Smoking History Unknown if ever smoked [id number] Sex Female Hospital Discharge Instructions Should you have any questions prior to discharge, please contact a member of your healthcare team. If you have left the hospital and have any questions, please contact your primary care physician. Reason For Referral No Data Found Plan of Treatment US Echo With Color ([id number]) 02/13/2024 Encounters Encounter Diagnosis Start Date Code Code Sys tem Pain in left shoulder 11/08/2023 SNOMED -CT Personal Care Team Section Performer Name Performer Role Active Date Inactive Da USHA Rosales PCP - Primary care physician Imaging Narrative Notes
--- OUTSIDE RECORDS SUMMARY | 2024-11-21 10:08 | XMS_ITS ---
Author Organization Unknown Address [address] [place] [phone] Phone Care Team Providers Care Prosthetic Makeup Designer Name Role Phone EDWARD ANASTACIOANGYAshok Attending Unavailable [...] Smoking History Unknown if ever smoked [id number] Sex Female Hospital Discharge Instructions Should you have any questions prior to discharge, please contact a member of your healthcare team. If you have left the hospital and have any questions, please contact your primary care physician. Reason For Referral No Data Found Plan of Treatment US Echo With Color ([id number]) 02/13/2024 Encounters Encounter Diagnosis Start Date Code Code Sys tem Abnormal electrocardiogram [ECG] [EKG] 10/29/2023 SNOMED-CT Personal Care Team Section Performer Name Performer Role Active Date Inactive USHA Catherine PCP - Primary care physician
--- OUTSIDE RECORDS SUMMARY | 2024-11-21 10:08 | XMS_ITS ---
Author Organization Unknown Address [address] [place] [phone] Phone Care Team Providers Care Welder Experimental Name Role Phone EDWARD ANASTACIOANGYAshok Attending Unavailable [...] Smoking History Unknown if ever smoked [id number] Sex Female Hospital Discharge Instructions Should you have any questions prior to discharge, please contact a member of your healthcare team. If you have left the hospital and have any questions, please contact your primary care physician. Reason For Referral No Data Found Plan of Treatment US Echo With Color ([id number]) 02/13/2024 Encounters Encounter Diagnosis Start Date Code Code Sys tem Electrocardiogram abnormal 02/13/2024 [id number] S NOMED-CT Personal Care Team Section Performer Name Performer Role Active Date Inactive USHA Catherine PCP - Primary care physician Imaging Narrative Notes [facility] 02/18/2024 15:21 [place] [id number] RADIOLOGY REPORT Patient Number: [id number] Patient Name: FLOR RAMIREZ Type: O/P MR Number: [id number] : 2000 Age: 24 Sex: F Room #: Admit Date: 02/13/24 Discharge Date 02/13/24 Ordering Physician: EDWARD DIOR [facility] Physician: LUCY Lackey Physician: X-Ray Number : [id number] US ECHO W/ COLOR [id number] COMPLETE:02/13/24 15:34 APC [id number] (REASON-ECHO COMPLTE: abn ekg See Scanned Image Attachment for Report Dictated By: Radha Initials: Trans Date: 02/18/24 15:21 <<REPDIST>>
--- OUTSIDE RECORDS SUMMARY | 2024-11-21 10:08 | XMS_ITS | Patient Health Summary ---
Author Organization [facility] Address [address] [place] [address] Care Team Providers Care Bartacker Name Role Phone Crispin Cruz MD Primary Care Provider [phone] Note from [facility],non-owned Affiliates and Associated Physician Practices is amultiple site organization consisting of ambulatory clinics and hospital sitesin [place], [place], [place] and [place]. This disclosure is being madepursuant to the Care Everywhere program and may not contain all information available regarding this patient. Last updated 18.[facility] Allergies * Acetaminophen(Nausea, abdominal pain) Medications * Be aware that medications may not be up to date on this document. Alwaysverify current medications with the patient. * hsliskn-jojrwzfqnsrxk-xhatfmfz 250-250-65 MG tablet Take 1 Tab by [...] Comments Blood Pressure 104/68 08/21/2018 8:43 AM UTILITY DRIVER Pulse 79 06/14/2017 7:49 AM CDT per p cp Temperature 35.9 C (96.6 F) 06/14/2017 7:49 AM CDT per pcp Respiratory Rate 16 03/26/2017 9:13 AM CDT Oxygen Saturation 99% 03/26/2017 9:13 AM CDT Inhaled Oxygen Concentration - - Weight 47.3 kg (104 lb 4.4 oz) 08/21/2018 8:43 A M UTILITY DRIVER Height 159.8 cm (5' 2.91 ) 08/21/2018 8:43 AM CS T Body Mass Index 18.52 08/21/2018 8:43 AM UTILITY DRIVER Procedures * LAB RESULTS ORDER(Performed 04/11/2017) * [...] Note Yomi Hernandez MD - 03/26/2017 [address] [place] [id number] Fax Congenital Transthoracic Report Pat.Name: FATMATA HANNA Pat.ID: [id number] St.Date: 03/26/2017 Exam Time: 10:24:00 AM Study Type:Congenital TTE Height: 161cm Weight: 56kg BSA: 1.58 m2 Age: 7 2000,17Y Sex: FEMALE BP: 92/54 Sonogrphr: Yoselyn Alberto RDCS Pat. Stat.:Outpatient Room: Clinic CPT - 4: 94084 Reason for Study:Chest pain. Syncope History / Clinical:chest pain syncope Procedures:2D Non-congenital, Doppler Complete, Color Flow Visit ID: [id number] SUMMARY: Impression: Normal intracardiac anatomy and normal [...] Hernandez MD Yomi Hernandez MD ECHO ORDERABLES [facility] [address] [place] [address] * EKG 15-LEAD (03/26/2017 8:20 AM CDT) Ventricular Rate 72 BPM CG MUSE Atrial Rate 72 BPM CG MUSE P-R Interval 128 ms CG MUSE QRS Duration ms 98 ms CG MUSE Q-T Interval ms 384 ms CG MUSE QTC Calculation (Bezet) 420 ms CG MUSE Calculated P [place] 56 degrees CG MUSE Calculated R [place] 116 degrees CG MUSE Calculated T [place] 54 degrees CG MUSE Interpretation EKG Sinus [...] MD ECG ORDERABLES CG MUSE Care Teams Bartacker Relationship Specialty Start Date End Date Crispin Cruz MD [address] [place] [address] PCP - General Family Medicine 03/26/17
--- OUTSIDE RECORDS SUMMARY | 2024-11-21 10:08 | XMS_ITS | Referral Summary ---
Author Organization [facility] Address [address] [place] [address] Care Team Providers Care Engineering Professor Name Role Phone Crispin Cruz MD Primary Care Provider Source Comments [facility],non-owned Affiliates and Associated Physician Practices is amultiple site organization consisting of ambulatory clinics and hospital sitesin [place], [place], [place] and [place]. This disclosure is being madepursuant to the Care Everywhere program and may not contain all information available regarding this patient. Last updated 18.[facility] Allergies Active Allergy Reactions Criticality Noted [...] Comments Blood Pressure 104/68 08/21/2018 8:43 AM EDGE INKER UPPERS Pulse 79 06/14/2017 7:49 AM CDT per p cp Temperature 35.9 C (96.6 F) 06/14/2017 7:49 AM CDT per pcp Respiratory Rate 16 03/26/2017 9:13 AM CDT Oxygen Saturation 99% 03/26/2017 9:13 AM CDT Inhaled Oxygen Concentration - - Weight 47.3 kg (104 lb 4.4 oz) 08/21/2018 8:43 A M EDGE INKER UPPERS Height 159.8 cm (5' 2.91 ) 08/21/2018 8:43 AM CS T Body Mass Index 18.52 08/21/2018 8:43 AM EDGE INKER UPPERS Plan of Treatment Not on file Care Teams Engineering Professor Relationship Specialty Start Date End Date Crispin Cruz MD [address] [place] [address] PCP - General Family Medicine 03/26/17
--- OUTSIDE RECORDS SUMMARY | 2024-11-21 10:08 | XMS_ITS ---
Author Organization Unknown Address [address] [place] [phone] Phone Care Team Providers Care Brush Holder Assembler Name Role Phone EDWARD ANASTACIOANYGAshok Attending Unavailable LUCY USHA Primary Unavailable Immunization [...] Smoking History Unknown if ever smoked [id number] Sex Female Hospital Discharge Instructions Should you have any questions prior to discharge, please contact a member of your healthcare team. If you have left the hospital and have any questions, please contact your primary care physician. Reason For Referral No Data Found Plan of Treatment US Echo With Color ([id number]) 02/13/2024 Encounters Encounter Diagnosis Start Date Code Code Sys tem Abnormal electrocardiogram [ECG] [EKG] 11/26/2023 SNOMED-CT Personal Care Team Section Performer Name Performer Role Active Date Inactive USHA Catherine PCP - Primary care physician
--- OUTSIDE RECORDS SUMMARY | 2024-11-21 10:08 | XMS_ITS | Clinical Summary ---
Author Organization [facility] Address [address] [place] [address] Care Team Providers Care Concierge Name Role Phone Crispin Cruz MD Primary Care Provider Source Comments [facility],non-owned Affiliates and Associated Physician Practices is amultiple site organization consisting of ambulatory clinics and hospital sitesin [place], [place], [place] and [place]. This disclosure is being madepursuant to the Care Everywhere program and may not contain all information available regarding this patient. Last updated 18.[facility] Allergies Active Allergy Reactions Criticality Noted Date [...] Comments Blood Pressure 104/68 08/21/2018 8:43 AM PARCEL POST WEIGHER Pulse 79 06/14/2017 7:49 AM CDT per p cp Temperature 35.9 C (96.6 F) 06/14/2017 7:49 AM CDT per pcp Respiratory Rate 16 03/26/2017 9:13 AM CDT Oxygen Saturation 99% 03/26/2017 9:13 AM CDT Inhaled Oxygen Concentration - - Weight 47.3 kg (104 lb 4.4 oz) 08/21/2018 8:43 A M PARCEL POST WEIGHER Height 159.8 cm (5' 2.91 ) 08/21/2018 8:43 AM CS T Body Mass Index 18.52 08/21/2018 8:43 AM PARCEL POST WEIGHER Plan of Treatment Health Maintenance Due Date [...] age to complete this topic Care Teams Concierge Relationship Specialty Start Date End Date Crispin Cruz MD [address] [place] [phone] PCP - General Family Medicine 03/26/17
[2024-11-21 10:17] VITALS: BP 102/54; PULSE 75; RESP 20; TEMP 36.7; O2SAT 100
[2024-11-23 08:14] LABS: Trichomonas Vag PCR NOT DETECTED (NOT DETECTE)
[2024-11-23 08:36] LABS: Chlamydia trachomatis NOT DETECTED (NOT DETECTE); Neisseria gonorrhoeae PCR NOT DETECTED (NOT DETECTE)
[2024-11-23 13:04] LABS: RPR Screen NON-REACTIVE (NON-REACTIVE)
== END 2024-11-21 10:19 | disposition home or self-care (01) ==
LOC: CHSED 10:06
PROVIDERS: Emergency Provider Family Medicine; PCP Family Medicine
DX: N83.209 Unspecified ovarian cyst, unspecified side (principal); F17.290 Nicotine dependence, other tobacco product, uncomplicated
CPT/HCPCS: 36415; 74177; 80053; 81003; 81025; 85027; 86592; 87491; 87591; 87661; 87806; 96360; 99284; A9270; J7030; Q9967

== ENCOUNTER 2024-12-01 10:48 | Outpatient (CLI) | payer OTHER, SELFPAY ==
--- OUTSIDE RECORDS SUMMARY | 2024-12-01 13:04 | XMS_ITS | Data Portability ---
Author Organization [facility] [place] Address [address] [place] [address] Assessment Encounter Date Assessment Date Assessment LastModified by Organization Details LastModified Time 01/03/2021 01/03/2021 nexplanon removed declines contraception WWE UTD [email or web address] Not available 01/03/2021 13:06:39 Plan of Treatment Reminders Order Date Submit Date Provider Last Modified By Organization Details Last Modified Time Details Appointments None recorded. Lab None recorded. Referral None recorded. Procedures None recorded. Surgeries None recorded. Imaging None recorded. Medication Orders nystatin-t riamcinolo ne 100,000 unit/gram- 0.1 % topical ointment 2019 [id number] [id number], [address] [place], [address], 12:42:18 Patient TargetsNo targets recorded. Patient Instructions Encounter Date Encounter Id Patient Instructions Last Modified By Organization Details Last Modified Time 05/17/2020 [id number] good vulvar care , finish diflucan start ointment f/u wwe Not available 05/17/2020 17:44:47 01/03/2021 [id number] learning about control [email or web address] Not available 01/03/2021 13:06:40 surgical trays* [email or web address] Not available 08/16/2021 14:41:40 Reason for Referral [...] rk [address], [place] [address] , Dilan Padron ra, DO, Labor atory [...] antione resul ts of Misty l or Weldon hiwot are deter mined by calcu latin [...] e isaac cteri stics deter mined by [facility] Swish, [place] d/b/a [facility] [employer]. It has not been clear ed or appro orion by the U.S. Food and Drug Admin istra tion. The FDA has deter mined that such clear ance or appro paco is not neces erika. Perti nent refer ence inter vals are avail able from the [facility] at[facility] on reque st. Test( s) perfo rmed by Ass [facility] Patho logis Swish, [employer], d/b/a [facility] [employer], [address], [place] [address] , Dilan Padron ra, DO, Labor atory Dire tor. Not Available [facility] ([facility]) [address] [facility] [address], [place], [address], 05/20/2020 15:27:07 05/17/20 20 05/20/2020 bacte rial [...] [address], [place] [address] , Dilan Padron ra, DO, Labor atory Direc tor. Gardn erell a vagin dante, Hortensia da speci es: Genom ic DNA is isola hiwot from patie nt speci mens by stand sabiha labor atory techn iques and julio zed using custo m OpenA rray plate s, perfo rmed on the [employer] 12K Flex Real Time PCR syste m. A posit rakan resul t is provi ded for patho genic bacte payal, virus and/o r funga l speci es based on detec tion of ampli ficat ion produ cts. Misty l vagin al antione resul ts of Misty l or Weldon hiwot are deter mined by calcu latin [...] isaac cteri stics deter mined by [facility] d/b/a [facility]. It has not been clear ed or appro orion by the U.S. Food and Drug Admin istra tion. The FDA has deter mined that such clear ance or appro paco is not neces erika. Perti nent refer ence inter vals are avail able from the labor atory on reque st. Test( s) perfo rmed by [employer] [facility] Patho logis [facility]ish[employer], d/b/a [facility], [address], [place] [address] , Dilan Padron ra, DO, Labor atory Dire tor. Not Available [facility] ([facility]) [address], [place], [address], 05/20/2020 15:27:07 05/17/20 20 05/20/2020 bacte rial [...] ing error . Test perfo rmed by [facility] Patho logis Swish, [place], d/b/a [facility], [address], [place] [address] , Dilan Padron ra, DO, Labor atory Direc tor. Arminda xavier a vagin dante, Hortensia da speci es: Genom ic DNA is isola hiwot from patie nt speci mens by stand sabiha labor atory techn iques and julio zed using custo m OpenA rray plate s, perfo rmed on the [place] o 12K Flex Real Time PCR syste m. A posit rakan resul t is provi ded for patho genic bacte payal, virus and/o r funga l speci es based on detec tion of ampli ficat ion produ cts. Misty l vagin al antione resul ts of Misty l or Weldon hiwot are deter mined by calcu latin [...] e isaac cteri stics deter mined by [employer], [place] d/b/a [facility]. It has not been clear ed or appro orion by the U.S. Food and Drug Admin istra tion. The FDA has deter mined that such clear ance or appro paco is not neces erika. Perti nent refer ence inter vals are avail able from the labor atory on reque st. Test( s) perfo rmed by [facility] [employer], [place], d/b/a [facility], [address], [place] [address] , Dilan Padron ra, DO, Labor atory Direc tor. Not Available [facility] ([facility]) [address], [address], 05/20/2020 15:27:07 Result Notes None recorded. Problems Name Problem SNOMED Code Status Onset Date Resolution Date Notes Provider Name and Address Organization Details Recorded Time Contrace ptive sheath status 598646697 Completed 201801/03/2021 Encounte r for initial prescrip tion of other contrace ptives;R ecorded Elsewher e: No [facility] S ource: EHR Garbage Man sean: N Dee Dee ce ID: 0001 Rolando lable Time: 01:00:00 PM Sophia Hugo MD [address], [place], [address], [facility] 12:44:56 Amenorrh ea 04964777 Completed 201801/03/2021 Amenorrh ea;Recor ded Elsewher e: No [facility]at [facility]: [facility] S ource: EHR Garbage Man sean: Rodolfo Funez ce ID: 0001 Rolando lable Time: 01:00:00 PM Sophia Hugo MD [address], [place], [address], [facility] 12:44:53 Pregnanc y test negative [id number] Completed 201801/03/2021 Encounte r for pregnanc y test, result negative ;Recorde d Elsewher e: No [facility]: EHR Garbage Man sean: Rodolfo Funez ce ID: 0001 Rolando lable Time: 01:00:00 PM Sophia Hugo MD [address], [place], [address], [facility] 12:45:01 Pelvic and perineal pain 550713141 Completed 201801/03/2021 Pelvic and perineal pain;Rec orded Elsewher e: No Locat ion: [facility] S ource: EHR Garbage Man sean: N Dee Dee ce ID: 0001 Rolando lable Time: 01:00:00 PM Sophia Hugo MD [address], [place], [address], [facility] 1 12:45:06 Educatio n Completed 201801/03/2021 Encounte r for other general counseli ng and advice on contrace ption;Re corded Elsewher e: No Locat ion: [facility] S ource: EHR Garbage Man sean: N Dee Dee ce ID: 0001 Rolando lable Time: 01:00:00 PM Sophia Hugo MD [address], [place], [address], [facility] 12:44:59 Procedur e Completed 201801/03/2021 Encounte r for checking , reinsert ion or removal of implanta ble subderma l contrace ptive;Re corded Elsewher e: No Locat ion: [facility] S ource: EHR Garbage Man sean: Rodolfo Funez ce ID: 0001 Rolando lable Time: 01:00:00 PM Sophia Hugo MD [address], [place], [address], [facility] 12:45:04 Problem Notes None recorded. Procedures Surgical History Date Name Laterality Status Provider Name and Address Organization Details Recorded Time 01/04/20 21 Nexplanon Removal completed Sophia Hugo MD [address], [place], [address], [facility] 01/03/2021 13:05:36 09/09/19 19 open reduction of dislocation of finger completed Rubia Mejia [facility] 05/17/2020 20:48:51 09/09/19 17 open reduction of dislocation of finger completed Rubia Mejia [facility] 05/17/2020 20:48:40 09/09/19 13 Unlisted px vestibule mouth completed Rubia Mejia [facility] 05/17/2020 20:49:03 Imaging Results None recorded. Procedure Notes None recorded. Medical Equipment None Reported. Allergies Allergen ID Allergen Name Allergen Category Reaction Reaction Severity Criticality Documentation Date Start Date Code Code System Note Provider Name and Address Organization Details Recorded Time 77822 acetamino phen medicatio n Not available Not available Not available 08/26/2020 161 RxNorm Comme nt: Locat ion: [facility] Cau sativ e Agent : Tylen ol; Not Available [facility] 14:17:46 1970 Product containin g penicilli n (product) medicatio n Not available Not available Not available 05/17/2020 26870 8001 SNOMED Rubia Mejia [place], [place] - [facility] 0 17:40:44 Medications Name Sig [...] Prescrib ed Elsewher e: No Locat ion: [facility] odify By: [email or web address] Encoundonnie r DateTime [...] 1 157.48 cm 10 % 18.5 kg/m2 79764.8 3 g 116 mm[Hg] 78 mm[Hg] Radha Morris [facility] 1 12:41:58 Date Recorded Body height Body mass index (BMI) Percentile per age and sex Body mass index (BMI) Body weight Systolic blood pressure Diastolic blood pressure Provider Name and Address Organization Details Last Updated DateTime 0 157.48 cm 14 % 18.8 kg/m2 12409.0 1 g 102 mm[Hg] 65 mm[Hg] Rubia Mejia [facility] 0 17:40:34 Social History Question Answer Notes LastModified by Organizat ion Details LastModified Time Tobacco Smoking Status Current Every Day Smoker Rubia Mejia [facility] 05/17/2020 20:47:51 What Is Your Level Of Alcohol Consumption? Occasional [email or web address] Information not available 05/17/2020 Do You Or Have You Ever Used E-cigarettes Or Vape? Current User Of Electronic Cigarettes Information not available 05/17/2020 What Was The Date Of Your Most Recent Tobacco Screening? 05/17/2020 Information not available 05/17/2020 Do You Or Have You Ever Used Smokeless Tobacco? Never Used Smokeless Tobacco [email or web address] Information not available 05/17/2020 How Much Tobacco Do You Smoke? 1 PPW [email or web address] Information not available 05/17/2020 Sex: Unknown Functional Status Question Answer Note LastModified by Organizat ion Details LastModified Time What is your exercise level? Occasional Information not available 05/17/2020 Mental Status None recorded. Family History Relationship Description Onset Age of this Age Resolved Age Notes LastModified by Organization Details LastModified Time Maternal Grandfather Heart disease [email or web address] Not available 05/17 20:45:13 Maternal Grandfather Malignant tumor of colon [email or web address] Not available 05/17 20:45:33 Maternal Grandfather Hypercholest erolemia [email or web address] Not available 05/17 20:45:44 Maternal Grandfather Hypertensive disorder [email or web address] Not available 05/17 20:45:51 Maternal Grandmother Malignant tumor of colon [email or web address] Not available 05/17 20:45:33 Maternal Grandmother Malignant tumor of ovary [email or web address] Not available 05/17 20:46:05 Maternal Grandmother Malignant tumor of breast [id number] Not available 05/17 20:46:16 Maternal Grandmother Malignant tumor of cervix [email or web address] Not available 05/17 20:46:35 Maternal Grandmother Cyst of ovary [id number] Not available 05/17 20:46:54 Mother Cyst of ovary [id number] Not available 05/17 20:46:54 Mother Endometriosi s (clinical) [email or web address] Not available 20:47:25 Paternal Grandmother Diabetes mellitus [email or web address] Not available 05/17 20:47:36 Notes:Maternal grandfather: Heart [...] SNOMED-CT Code Diagnosis ICD10 Code Diagnosis Note 72060 Janny Case CNM [place] [address] [address] 05/17/2020 17:20:03 05/17/2020 18:09:30 Candidiasis of vagina 85009523 B37.3 80703 Sophia Hugo MD [place] [address] [address] 01/03/2021 12:31:17 01/03/2021 13:08:50 Removal of subcutaneous contraceptive 934804491 Z30.46 Health Concerns Section Related Observation LastModified by Organization Detai ls LastModified Time None Recorded Concern Status LastModified by Organization Details LastModified Time None Recorded Advance Directives Directive None Recorded Payers Encounter Date Sequence Insurance Name Policy Number Policy Cordero Covered Member ID Cordero Member ID Guarantor Name 05/17/2020 1 [place] [id number] 5 Brain Barrett [id number] Shade Hanna 01/03/2021 1 [place] [id number] 5 Brain Barrett [id number] Shade Hanna Notes Date Note Type Note Provider Name and Address Organization Details Recorded Time 05/17/2020 text/html Vaginal/Vulvar ProblemReported bypatient.Notes:pcp gave her antibiotics for a yeast infection, itching burning worsened and pt to ED and given 3 diflucan sxs are improving slightly Janny Case CNM [address], [place], [address], [facility] 05/17/2020 17:44:59 01/03/2021 text/html Here for nexplan on removal. Has never liked it since placed 1.5 years ago, but now bleeding for 4 weeks and molina, wants it out. Planning condoms, maybe OCP in a bit. Sophia Hugo MD [address], [place], [address], [facility] 01/03/2021 13:07:03 OBGyn Episode No OBEpisode recorded.
--- OUTSIDE RECORDS SUMMARY | 2024-12-01 13:05 | XMS_ITS ---
Author Organization Unknown Address [address] [place] [phone] Phone Care Team Providers Care Nut Threader Name Role Phone EDWARD ANASTACIOANGYAshok Attending Unavailable [...] Smoking History Unknown if ever smoked [id number] Sex Female Hospital Discharge Instructions Should you have any questions prior to discharge, please contact a member of your healthcare team. If you have left the hospital and have any questions, please contact your primary care physician. Reason For Referral No Data Found Plan of Treatment US Echo With Color ([id number]) 02/13/2024 Encounters Encounter Diagnosis Start Date Code Code Sys tem Abnormal electrocardiogram [ECG] [EKG] 11/26/2023 SNOMED-CT Personal Care Team Section Performer Name Performer Role Active Date Inactive USHA Catherine PCP - Primary care physician
--- OUTSIDE RECORDS SUMMARY | 2024-12-01 13:05 | XMS_ITS ---
Author Organization Unknown Address [address] [place] [phone] Phone Care Team Providers Care Global Account Director Name Role Phone EDWARD ANASTACIOANGYAshok Attending Unavailable [...] Smoking History Unknown if ever smoked [id number] Sex Female Hospital Discharge Instructions Should you have any questions prior to discharge, please contact a member of your healthcare team. If you have left the hospital and have any questions, please contact your primary care physician. Reason For Referral No Data Found Plan of Treatment US Echo With Color (76235) 02/13/2024 Encounters Encounter Diagnosis Start Date Code Code Sys tem Electrocardiogram abnormal 02/13/2024 [id number] S NOMED-CT Personal Care Team Section Performer Name Performer Role Active Date Inactive USHA Catherine PCP - Primary care physician Imaging Narrative Notes [facility] 02/18/2024 15:21 [place] [address] RADIOLOGY REPORT Patient Number: [id number] Patient Name: FLOR RAMIREZ Type: O/P MR Number: [id number] : 2000 Age: 24 Sex: F Room #: Admit Date: 02/13/24 Discharge Date 02/13/24 Ordering Physician: EDWARD DIOR [facility] Physician: LUCY Lackey Physician: X-Ray Number : [id number] US ECHO W/ COLOR [id number] COMPLETE:02/13/24 15:34 APC [id number] (REASON-ECHO COMPLTE: abn ekg See Scanned Image Attachment for Report Dictated By: Radha Initials: Trans Date: 02/18/24 15:21 <<REPDIST>>
--- OUTSIDE RECORDS SUMMARY | 2024-12-01 13:05 | XMS_ITS ---
Author Organization Unknown Address [address] [place] [phone] Phone Care Team Providers Care Desktop Analyst Name Role Phone RAMIRO WAGNER Attending Unavailable [...] URINE - Colle ct Date/Time: 11/08/2023 10:15 [facility] ID: [id number] [address] [place], [place], [id number] LOINC: Test Value Unit Reference Range Code Code System Flag URINE PREG NEGATIVE LUMBAR SPINE - Completed: 10:33 LOINC: EXAM DESCRIPTION: LUMBAR SPINE REASON FOR STUDY: NKI lower back pain no previous fx or surgery Duration: since 10/19/2023 TECHNIQUE: Frontal, lateral and cone-down radiographic view(s) of the lumbar spine. COMPARISON: None available FINDINGS: 5 odu-zmu-mocggsi lumbar type vertebral bodies. There is mild levoconvex curvature. Lumbar vertebral body heights and disc spaces are maintained. There is no significant facet sclerosis. IMPRESSION: The lumbar vertebral body heights are maintained. THIS IS AN ELECTRONICALLY VERIFIED FINAL REPORT 11/09/2023 6:49 AM - Electronically signed by Dorian Patricia D.O. AP: AP Report ID: [id number] Reading Location: [id number] Social History Type Status Start Date End Date Code Code Syst em Smoking History Unknown if ever smoked [id number] Sex Female Hospital Discharge Instructions Should you have any questions prior to discharge, please contact a member of your healthcare team. If you have left the hospital and have any questions, please contact your primary care physician. Reason For Referral No Data Found Plan of Treatment US Echo With Color ([id number]) 02/13/2024 Encounters Encounter Diagnosis Start Date Code Code Sys tem Pain in left shoulder 11/08/2023 SNOMED -CT Personal Care Team Section Performer Name Performer Role Active Date Inactive USHA Catherine PCP - Primary care physician Imaging Narrative Notes
--- OUTSIDE RECORDS SUMMARY | 2024-12-01 13:05 | XMS_ITS | Clinical Summary ---
Author Organization [facility] Address [address] [place] [address] Care Team Providers Care Enforcement Officer Name Role Phone Crispin Cruz MD Primary Care Provider Source Comments [facility],non-owned Affiliates and Associated Physician Practices is amultiple site organization consisting of ambulatory clinics and hospital sitesin [place], [place], [place] and [place]. This disclosure is being madepursuant to the Care Everywhere program and may not contain all information available regarding this patient. Last updated 18.[facility] [employer] Allergies Active Allergy Reactions Criticality Noted Date [...] Comments Blood Pressure 104/68 08/21/2018 8:43 AM TESTER ROCKET ENGINE Pulse 79 06/14/2017 7:49 AM CDT per p cp Temperature 35.9 C (96.6 F) 06/14/2017 7:49 AM CDT per pcp Respiratory Rate 16 03/26/2017 9:13 AM CDT Oxygen Saturation 99% 03/26/2017 9:13 AM CDT Inhaled Oxygen Concentration - - Weight 47.3 kg (104 lb 4.4 oz) 08/21/2018 8:43 A M TESTER ROCKET ENGINE Height 159.8 cm (5' 2.91 ) 08/21/2018 8:43 AM CS T Body Mass Index 18.52 08/21/2018 8:43 AM TESTER ROCKET ENGINE Plan of Treatment Health Maintenance Due Date [...] age to complete this topic Care Teams Enforcement Officer Relationship Specialty Start Date End Date Crispin Cruz MD [address] [place] [phone] PCP - General Family Medicine 03/26/17
--- OUTSIDE RECORDS SUMMARY | 2024-12-01 13:06 | XMS_ITS | Clinical Summary ---
Author Organization [facility] Address [address] [address] Phone Care Team Providers Care Credit Card Clerk Name Role Phone Crispin Cruz MD Primary Care Provider [phone] Allergies Active Allergy Reactions Criticality Noted Date [...] on file Legal Sex Female 7:18 AM ZIPPER JOINER Gender Identity Not on file Sexual Orientation [...] Immunization (1 of 2 - Standard) 2017 Influenza Immunization (#1) 2024 06/03/2013, 0 04/23/2012 SARS-COV-2 Immunization ( - 2023- season) 2024 Respiratory Syncytial Virus (RSV) Immunization [...] PANEL ACUTE (AHP) Routine 09/11/2019 11:48 AM ZIPPER JOINER Serum total bilirubin elevated Abnormal weight loss Chronic nausea Right upper quadrant abdominal pain from Last 3 Months or Most Recently Relevant to Health Maintenance Results * HEPATITIS PANEL ACUTE (AHP) (09/11/2019 11:48 AM ZIPPER JOINER) HEPATITIS A IGM ANTIBODY NON DETECTED NON DETECTED 09/11/2019 9:25 PM ZIPPER JOINER [facility] Comment: IGM Antibodies to HAV not detected. Does not exclude early acute or recovered HAV infection. HEP B CORE AB (IGM) NON DETECTED NON DETECTED 09/11/2019 9:25 PM ZIPPER JOINER [facility] Comment:IGM anti-HBC not det ected. Does not exclude the possibility of exposure to or infection with HBV. HEPATITIS B SURFACE ANTIGEN NON DETECTED NON DETECTED 09/11/2019 9:25 PM ZIPPER JOINER [facility] Comment:A nonreactive test [...] antibody 0.17 <1 S/CO 09/11/2019 9:25 PM ZIPPER JOINER [facility] Comment: Signal/Cutoff ratio < 0.79 is Nondetected Signal/Cutoff ratio 0.80-0.99 is Grayzone Signal/Cutoff ratio > 0.99 is Detected Supplemental assays are recommended if signal/cutoff ratio is >/=1.00. Signal/cutoff ratio result >/= 5.00 is 97% predictive of positivity for recombinant immunoblot assay (RIBA) and will be reported to the [place] Department of Public Health as required. Blood specimen (specimen) Venipuncture / Unknown 09/11/2019 11:48 AM ZIPPER JOINER 09/11/2019 12:57 PM ZIPPER JOINER us Daphne Lawrence CHAR HOUSE SUPERVISOR, RETAIL MANAGEMENT TRAINEE HEMATOLOGY ORDERA BLES Final Result [facility] [address] [place] [address], [place] from Last 3 Months or Most Recently Relevant to Health Maintenance Insurance [facility] Care Teams Credit Card Clerk Relationship Specialty Start Date End Date Crispin Cruz MD [address] [place] [address] PCP - General Pediatrics 09/11/19
--- OUTSIDE RECORDS SUMMARY | 2024-12-01 13:06 | XMS_ITS ---
Author Organization Unknown Address [address] [place] [phone] Phone Care Team Providers Care Explosives Handler Name Role Phone EDWARD ANASTACIOANGYAshok Attending Unavailable [...] Smoking History Unknown if ever smoked [id number] Sex Female Hospital Discharge Instructions Should you have any questions prior to discharge, please contact a member of your healthcare team. If you have left the hospital and have any questions, please contact your primary care physician. Reason For Referral No Data Found Plan of Treatment US Echo With Color ([id number]) 02/13/2024 Encounters Encounter Diagnosis Start Date Code Code Sys tem Abnormal electrocardiogram [ECG] [EKG] 10/29/2023 SNOMED-CT Personal Care Team Section Performer Name Performer Role Active Date Inactive USHA Catherine PCP - Primary care physician
== END 2024-12-01 10:49 | disposition home or self-care (01) ==
PROVIDERS: PCP Family Medicine; Visit Provider Obstetrics & Gynecology
DX: N83.209 Unspecified ovarian cyst, unspecified side (principal)
CPT/HCPCS: 36415; 86850; 86900; 86901

== ENCOUNTER 2024-12-03 00:37 | Day surgery (SDC) | payer OTHER, SELFPAY ==
[2024-11-30 08:29] VITALS: BMI 19.8
--- NOTE | 2024-11-30 08:38 | PC.NURSE ---
Report to the Outpatient Waiting Room, entrance under the green pavilion located off [facility], at time _0700_ on date _14-25-6523_. Planned Procedure Time: _0900_.? Time changes happen often and if your time is changed the preop area will call you the afternoon before. - You and your visitor will be asked to self-screen and do not enter if you have any COVID symptoms. Please call surgeon if you need to reschedule. - A mask is optional within the hospital at this time. Patients may have clear liquids (water, carbonated beverages, clear teas, apple juice) until 3 hours prior to surgery with a maximum of 20 ounces. - No food from midnight until time of surgery and no smoking, or chewing tobacco (or any form of nicotine). No chewing gum, candy or mints. Take only the following medications with a SIP of water on the morning of surgery: ____Flonase and if needed hydrocodone___ DO NOT STOP ANY OF YOUR OTHER PRESCRIPTION MEDICATIONS PRIOR TO SURGERY EXCEPT THE FOLLOWING Hold all vitamins and supplements for 3 days per anesthesiologist. Medications to discontinue per physician ___Patient stopped Naproxen [phone] Date to take last dose Please no make-up, nail moldovan, hairspray, perfume, deodorant, or body powder the day of surgery.? No jewelry (including any body piercings) or valuables the day of surgery, leave them at home.? Please take a shower or bath the night before, or the morning of, surgery with an antibacterial soap.? Wear comfortable, loose fitting clothing.? - Jewelry must be removed prior to entering the operating room.? Rings and piercings that are not removed may be cut off. - The hospital will not accept responsibility for valuables.? - Please leave all valuables, including medications, at home the day of surgery. If you are going home after surgery, a licensed entry driver operator must drive you home.? - NO public transportation without another adult if you receive anesthesia. - We recommend that an adult stay with you for 24 hours following discharge. - We also recommend that you do not drive, make important decision, drink alcoholic beverages, or take any drugs that were not prescribed by your health care provider for at least 24 hours after your discharge time. Follow any additional instructions given to you from your surgeon. Telephone instructions given to __Elysha___and asked if any additional questions and then verbalized understanding. Patient advised to call surgeon office or pre surgery nurse liaison [phone] if any additional questions.
--- NOTE | 2024-12-01 07:39 | P.HP_ITS ---
H&P: HPI History of Present Illness Date/Time: 12/01/24 07:39 Chief Complaint: Pelvic pain and right ovarian cyst Narrative: 24-year-old female admitted for diagnostic laparoscopy and right ovarian cystectomy patient has had pain discomfort and dyspareunia for some time has an ovarian cyst present. Risks and benefits of the procedure reviewed in great detail she received the [employer] handout entitled laparoscopy she had questions answered. She asked to proceed Review of Systems Review of Systems: All systems reviewed & are unremarkable except as noted in HPI and below PMFSH Past Medical History Medical History Asthma [place] syndrome Family History Family History Other No problems noted. Social History Social History Smoking status: Current every day smoker Tobacco type: e-cigarettes/vaping Alcohol intake: never Substance use: never Substance use type: marijuana Other substance usage details: THC marijuana occasionally Living arrangements: with family Gender identity (if verbalized by the patient): Female Sexual Orientation (if Verbalized by the Patient): Straight or Heterosexual Spiritual care concerns: No Meds Home Medications and Allergies Home Medications ?Medication ?Instructions ?Recorded ?Confirmed ?Type fluticasone propionate 50 1 spray intranasal Q12H 11/21/24 11/30/24 History mcg/actuation nasal spray,suspension naproxen 250 mg tablet 250 mg PO BID PRN pain #14 tabs 11/21/24 11/30/24 Rx hydrocodone 5 mg-acetaminophen 325 1 tablet PO Q6-8H PRN pain 11/30/24 11/30/24 History mg tablet Allergies Allergy/AdvReac Type Severity Reaction Status Date / Time Penicillins Allergy Mild Rash Verified 11/30/24 08:28 Exam Const: General: cooperative, healthy appearing and comfortable Nutritional Appearance: average body habitus Orientation/consciousness: oriented to person, oriented to place and oriented to time HENMT: Head: normal to inspection Resp: Effort & Inspection: normal respiratory effort Cardio: Rate: regular rate Rhythm: regular rhythm Heart sounds: S1 normal heart sound present and S2 normal heart sound present GI: Inspection: normal to inspection : External Female Exam: normal external appearance Speculum Exam - Vagina: normal appearance of the vagina Speculum Exam - Cervix: normal appearance of the cervix Bimanual exam- vagina & uterus: soft Bimanual Exam- Adnexa, other: tender on the right Assessment and Plan Assessment and plan (1) Ovarian cyst: Code(s): N83.209 - Unspecified ovarian cyst, unspecified side Status: Inactive Plan Proceed with diagnostic laparoscopy right ovarian cystectomy
[2024-12-03] VITALS (12 sets, daily range): BP systolic 83–108; BP diastolic 47–97; PULSE 54–104; RESP 14–23; TEMP 36.2–36.7; O2SAT 98–100; BMI 19.6
--- OUTSIDE RECORDS SUMMARY | 2024-12-03 00:39 | XMS_ITS | Data Portability ---
Author Organization [facility] [place] Address [address] [place] [address] Assessment Encounter Date Assessment Date Assessment LastModified by Organization Details LastModified Time 01/03/2021 01/03/2021 nexplanon removed declines contraception WWE UTD Not available 01/03/2021 13:06:39 Plan of Treatment Reminders Order Date Submit Date Provider Last Modified By Organization Details Last Modified Time Details Appointments None recorded. Lab None recorded. Referral None recorded. Procedures None recorded. Surgeries None recorded. Imaging None recorded. Medication Orders nystatin-t riamcinolo ne 100,000 unit/gram- 0.1 % topical ointment 2019 020 [id number], [address] [place], [address], 12:42:18 Patient TargetsNo targets recorded. Patient Instructions Encounter Date Encounter Id Patient Instructions Last Modified By Organization Details Last Modified Time 05/17/2020 [id number] good vulvar care , finish diflucan start ointment f/u wwe [email or web address] Not available 05/17/2020 17:44:47 01/03/2021 [id number] learning about control [email or web address] Not available 01/03/2021 13:06:40 surgical trays* Not available 08/16/2021 14:41:40 Reason for Referral [...] rk [address], [place] [address] , Dilan Padron ra, DO, Labor atory [...] antione resul ts of [place] or [place] hi[place]ot are deter mined by calcu latin [...] e isaac cteri stics deter mined by [facility] log[facility] Just D[facility], [facility] d/b/a [facility]. It has not been clear ed or appro orion by the U.S. Food and Drug Admin istra tion. The FDA has deter mined that such clear ance or appro paco is not neces erika. Perti nent refer ence inter vals are avail able from [facility] on reque [facility]. Test( s) perfo rmed by [employer] Patho logis Just Dial, [facility], d/b/a [facility], [address], [place] [address] , Dilan Padron ra, DO, Labor atory Dire tor. Not Available [facility] ([facility]) [address] [facility] [address], [place], [address], 05/20/2020 15:27:07 05/17/20 20 05/20/2020 bacte rial [...] [address], [place] [address] , Dilan Padron ra, DO, Labor atory Direc tor. Gardn erell a vagin dante, Hortensia da speci es: Genom ic DNA is isola hiwot from patie nt speci mens by stand sabiha labor atory techn iques and julio zed using custo m OpenA rray plate s, perfo rmed on the [employer] o 12K Flex Real Time PCR syste m. A posit rakan resul t is provi ded for patho genic bacte payal, virus and/o r funga l speci es based on detec tion of ampli ficat ion produ cts. Misty l vagin al antione resul ts of [place] or [place] hiwot are deter mined by calcu latin [...] isaac cteri stics deter mined by [employer] [facility] logis ts, [facility] d/b/a [facility] r[facility]. It has not been clear ed or appro orion by the U.S. Food and Drug Admin istra tion. The FDA has deter mined that such clear ance or appro paco is not neces erika. Perti nent refer ence inter vals are avail able from the labor atory on reque st. Test( s) perfo rmed by [employer] [facility] Patho logis Just Dial, LLC, d/b/a [facility], [address], [place] [address] , Dilan Padron ra, DO, Labor atory Dire tor. Not Available [facility] ([facility]) [address], [place], [address], 05/20/2020 15:27:07 05/17/20 20 05/20/2020 bacte rial [...] ing error . Test perfo rmed by [employer] Patho logis Just Dial, [facility], d/b/a [facility], [address], [place] [address] , Dilan Padron ra, DO, Labor atory Direc tor. Arminda xavier a vagin dante, Hortensia da speci es: Genom ic DNA is isola hiwot from patie nt speci mens by stand sabiha labor atory techn iques and julio zed using custo m OpenA rray plate s, perfo rmed on the [employer] o 12K Flex Real Time PCR syste m. A posit rakan resul t is provi ded for patho genic bacte payal, virus and/o r funga l speci es based on detec tion of ampli ficat ion produ cts. Misty l vagin al antione resul ts of Misty [place] or [place] hi[place]ot are deter mined by calcu latin [...] e isaac cteri stics deter mined by [employer], [facility] d/b/a [facility]. It has not been clear ed or appro orion by the U.S. Food and Drug Admin istra tion. The FDA has deter mined that such clear ance or appro paco is not neces erika. Perti nent refer ence inter vals are avail able from the labor atory on reque st. Test( s) perfo rmed by [employer], [facility] [facility], d/b/a [facility], [address], [place] [address] , Dilan Padron ra, DO, Labor atory Direc tor. Not Available [facility] ([facility]) [address], [place], [address], 05/20/2020 15:27:07 Result Notes None recorded. Problems Name Problem SNOMED Code Status Onset Date Resolution Date Notes Provider Name and Address Organization Details Recorded Time Contrace ptive sheath status 179822624 Completed 201801/03/2021 Encounte r for initial prescrip tion of other contrace ptives;R ecorded Elsewher e: No [facility]at [facility] S ource: EHR Accounting Representative sean: N Dee Dee ce ID: 0001 Rolando lable Time: 01:00:00 PM Sophia Hugo MD [address], [place], [address], [facility] 12:44:56 Amenorrh ea 11050849 Completed 201801/03/2021 Amenorrh ea;Recor ded Elsewher e: No Locat ion: [facility] S ource: EHR Accounting Representative sean: Rodolfo Funez ce ID: 0001 Rolando lable Time: 01:00:00 PM Sophia Hugo MD [address], [place], [address], [facility] 12:44:53 Pregnanc y test negative 014863815 Completed 201801/03/2021 Encounte r for pregnanc y test, result negative ;Recorde d Elsewher e: No [facility]at [facility] S ource: EHR Accounting Representative sean: Rodolfo Funez ce ID: 0001 Rolando lable Time: 01:00:00 PM Sophia Hugo MD [address], [place], [address], [facility] 12:45:01 Pelvic and perineal pain 968046922 Completed 201801/03/2021 Pelvic and perineal pain;Rec orded Elsewher e: No Locat ion: [facility] S ource: EHR Accounting Representative sean: N Dee Dee ce ID: 0001 Rolando lable Time: 01:00:00 PM Sophia Hugo MD [address], [place], [address], [facility] 1 12:45:06 Educatio n Completed 201801/03/2021 Encounte r for other general counseli ng and advice on contrace ption;Re corded Elsewher e: No Locat ion: [facility] S ource: EHR Accounting Representative sean: N Dee Dee ce ID: 0001 Rolando lable Time: 01:00:00 PM Sophia Hugo MD [address], [place], [address], [facility] 12:44:59 Procedur e Completed 201801/03/2021 Encounte r for checking , reinsert ion or removal of implanta ble subderma l contrace ptive;Re corded Elsewher e: No Locat ion: [facility] S ource: EHR Accounting Representative sean: Rodolfo Funez ce ID: 0001 Rolando lable Time: 01:00:00 PM Sophia Hugo MD [address], [place], [address], [facility] 12:45:04 Problem Notes None recorded. Procedures Surgical History Date Name Laterality Status Provider Name and Address Organization Details Recorded Time 01/04/20 21 Nexplanon Removal completed Sophia Hugo MD [address], [place], [address], [facility] 01/03/2021 13:05:36 09/09/19 19 open reduction of dislocation of finger completed Rubia Mejia [facility] 05/17/2020 20:48:51 09/09/19 17 open reduction of dislocation of finger completed Rubia Mejia [facility] 05/17/2020 20:48:40 09/09/19 13 Unlisted px vestibule mouth completed Rubia Mejia [facility] 05/17/2020 20:49:03 Imaging Results None recorded. Procedure Notes None recorded. Medical Equipment None Reported. Allergies Allergen ID Allergen Name Allergen Category Reaction Reaction Severity Criticality Documentation Date Start Date Code Code System Note Provider Name and Address Organization Details Recorded Time 12295 acetamino phen medicatio n Not available Not available Not available 08/26/2020 161 RxNorm Comme nt: [facility]at [facility] sativ e Agent : Tylen ol; Not Available [facility] 14:17:46 1970 Product containin g penicilli n (product) medicatio n Not available Not available Not available 05/17/2020 78763 8001 SNOMED Rubia Mejia [place], [place] - [facility] 0 17:40:44 Medications Name Sig Start [...] Prescrib ed Elsewher e: No Locat ion: [facility] odify By: [email or web address] Enc[place]onnie r DateTime : [...] 1 157.48 cm 10 % 18.5 kg/m2 98056.8 3 g 116 mm[Hg] 78 mm[Hg] Radha Morris [facility] 1 12:41:58 Date Recorded Body height Body mass index (BMI) Percentile per age and sex Body mass index (BMI) Body weight Systolic blood pressure Diastolic blood pressure Provider Name and Address Organization Details Last Updated DateTime 0 157.48 cm 14 % 18.8 kg/m2 18354.0 1 g 102 mm[Hg] 65 mm[Hg] Rubia Mejia [facility] 0 17:40:34 Social History Question Answer Notes LastModified by Organizat ion Details LastModified Time Tobacco Smoking Status Current Every Day Smoker Rubia Mejia [facility] 05/17/2020 20:47:51 What Is Your Level Of Alcohol Consumption? Occasional [email or web address] Information not available 05/17/2020 Do You Or Have You Ever Used E-cigarettes Or Vape? Current User Of Electronic Cigarettes [email or web address] Information not available 05/17/2020 What Was The Date Of Your Most Recent Tobacco Screening? 05/17/2020 [email or web address] Information not available 05/17/2020 Do You Or Have You Ever Used Smokeless Tobacco? Never Used Smokeless Tobacco [email or web address] Information not available 05/17/2020 How Much Tobacco Do You Smoke? 1 PPW [email or web address] Information not available 05/17/2020 Sex: Unknown Functional Status Question Answer Note LastModified by Organizat ion Details LastModified Time What is your exercise level? Occasional [email or web address] Information not available 05/17/2020 Mental Status None recorded. Family History Relationship Description Onset Age of this Age Resolved Age Notes LastModified by Organization Details LastModified Time Maternal Grandfather Heart disease [email or web address] Not available 05/17 20:45:13 Maternal Grandfather Malignant tumor of colon [email or web address] Not available 05/17 20:45:33 Maternal Grandfather Hypercholest erolemia Not available 05/17 20:45:44 Maternal Grandfather Hypertensive disorder [email or web address] Not available 05/17 20:45:51 Maternal Grandmother Malignant tumor of colon [email or web address] Not available 05/17 20:45:33 Maternal Grandmother Malignant tumor of ovary [email or web address] Not available 05/17 20:46:05 Maternal Grandmother Malignant tumor of breast [email or web address] Not available 05/17 20:46:16 Maternal Grandmother Malignant tumor of cervix Not available 05/17 20:46:35 Maternal Grandmother Cyst of ovary [email or web address] Not available 05/17 20:46:54 Mother Cyst of ovary [email or web address] Not available 05/17 20:46:54 Mother Endometriosi s (clinical) Not available 20:47:25 Paternal Grandmother Diabetes mellitus [email or web address] Not available 05/17 20:47:36 Notes:Maternal grandfather: Heart [...] SNOMED-CT Code Diagnosis ICD10 Code Diagnosis Note 46920 Janny Case CNM [place] [address] [address] 05/17/2020 17:20:03 05/17/2020 18:09:30 Candidiasis of vagina 09523128 B37.3 62222 Sophia Hugo MD [place] [address] [address] 01/03/2021 12:31:17 01/03/2021 13:08:50 Removal of subcutaneous contraceptive [id number] Z30.46 Health Concerns Section Related Observation LastModified by Organization Detai ls LastModified Time None Recorded Concern Status LastModified by Organization Details LastModified Time None Recorded Advance Directives Directive None Recorded Payers Encounter Date Sequence Insurance Name Policy Number Policy Cordero Covered Member ID Cordero Member ID Guarantor Name 05/17/2020 1 [place] [id number] Brain Barrett [id number] Shade Hanna 01/03/2021 1 [place] [id number] Brain Barrett [id number] Shade Hanna Notes Date Note Type Note Provider Name and Address Organization Details Recorded Time 05/17/2020 text/html Vaginal/Vulvar ProblemReported bypatient.Notes:pcp gave her antibiotics for a yeast infection, itching burning worsened and pt to ED and given 3 diflucan sxs are improving slightly Janny Case CNM [address], [place], [address], [facility] 05/17/2020 17:44:59 01/03/2021 text/html Here for nexplan on removal. Has never liked it since placed 1.5 years ago, but now bleeding for 4 weeks and molina, wants it out. Planning condoms, maybe OCP in a bit. Sophia Hugo MD [address], [place], [address], [facility] 01/03/2021 13:07:03 OBGyn Episode No OBEpisode recorded.
--- OUTSIDE RECORDS SUMMARY | 2024-12-03 00:40 | XMS_ITS | Clinical Summary ---
Author Organization [facility] Address [address] [place] [address] Care Team Providers Care Crotch Breaker Name Role Phone Crispin Cruz MD Primary Care Provider [phone] Source Comments [facility],non-owned Affiliates and Associated Physician Practices is amultiple site organization consisting of ambulatory clinics and hospital sitesin [place], [place]. This disclosure is being madepursuant to the Care Everywhere program and may not contain all information available regarding this patient. Last updated 18.[employer] Allergies Active Allergy Reactions Criticality Noted Date [...] Comments Blood Pressure 104/68 08/21/2018 8:43 AM SUPERVISOR WATERPROOFING Pulse 79 06/14/2017 7:49 AM CDT per p cp Temperature 35.9 C (96.6 F) 06/14/2017 7:49 AM CDT per pcp Respiratory Rate 16 03/26/2017 9:13 AM CDT Oxygen Saturation 99% 03/26/2017 9:13 AM CDT Inhaled Oxygen Concentration - - Weight 47.3 kg (104 lb 4.4 oz) 08/21/2018 8:43 A M SUPERVISOR WATERPROOFING Height 159.8 cm (5' 2.91 ) 08/21/2018 8:43 AM CS T Body Mass Index 18.52 08/21/2018 8:43 AM SUPERVISOR WATERPROOFING Plan of Treatment Health Maintenance Due Date [...] age to complete this topic Care Teams Crotch Breaker Relationship Specialty Start Date End Date Crispin Crzu MD [address] [place] [phone] PCP - General Family Medicine 03/26/17
--- OUTSIDE RECORDS SUMMARY | 2024-12-03 00:40 | XMS_ITS ---
Author Organization Unknown Address [address] [place] [phone] Phone Care Team Providers Care Examination Proctor Name Role Phone EDWARD ANASTACIOANGYAshok Attending Unavailable [...] Smoking History Unknown if ever smoked [id number] Sex Female Hospital Discharge Instructions Should you have any questions prior to discharge, please contact a member of your healthcare team. If you have left the hospital and have any questions, please contact your primary care physician. Reason For Referral No Data Found Plan of Treatment US Echo With Color ([id number]) 02/13/2024 Encounters Encounter Diagnosis Start Date Code Code Sys tem Abnormal electrocardiogram [ECG] [EKG] 11/26/2023 SNOMED-CT Personal Care Team Section Performer Name Performer Role Active Date Inactive USHA Catherine PCP - Primary care physician
--- OUTSIDE RECORDS SUMMARY | 2024-12-03 00:40 | XMS_ITS ---
Author Organization Unknown Address [address] [place] [phone] Phone Care Team Providers Care Mat Sewer Name Role Phone EDWARD ANASTACIOANGYAshok Attending Unavailable [...] Smoking History Unknown if ever smoked [address] Sex Female Hospital Discharge Instructions Should you have any questions prior to discharge, please contact a member of your healthcare team. If you have left the hospital and have any questions, please contact your primary care physician. Reason For Referral No Data Found Plan of Treatment US Echo With Color ([id number]) 02/13/2024 Encounters Encounter Diagnosis Start Date Code Code Sys tem Abnormal electrocardiogram [ECG] [EKG] 10/29/2023 SNOMED-CT Personal Care Team Section Performer Name Performer Role Active Date Inactive USHA Catherine PCP - Primary care physician
--- OUTSIDE RECORDS SUMMARY | 2024-12-03 00:40 | XMS_ITS ---
Author Organization Unknown Address [address] [place] [phone] Phone Care Team Providers Care Coat Joiner Name Role Phone EDWARD ANASTACIOANGYAshok Attending Unavailable [...] Smoking History Unknown if ever smoked [address] Sex Female Hospital Discharge Instructions Should you have any questions prior to discharge, please contact a member of your healthcare team. If you have left the hospital and have any questions, please contact your primary care physician. Reason For Referral No Data Found Plan of Treatment US Echo With Color ([id number]) 02/13/2024 Encounters Encounter Diagnosis Start Date Code Code Sys tem Electrocardiogram abnormal 02/13/2024 [id number] S NOMED-CT Personal Care Team Section Performer Name Performer Role Active Date Inactive USHA Catherine PCP - Primary care physician Imaging Narrative Notes [facility] 02/18/2024 15:21 [place] [address] RADIOLOGY REPORT Patient Number: [id number] Patient Name: FLOR RAMIREZ Type: O/P MR Number: [id number] : 2000 Age: 24 Sex: F Room #: Admit Date: 02/13/24 Discharge Date 02/13/24 Ordering Physician: EDWARD DIOR [facility] Physician: LUCY Lackey Physician: X-Ray Number : [id number] US ECHO W/ COLOR [id number] COMPLETE:02/13/24 15:34 APC [id number] (REASON-ECHO COMPLTE: abn ekg See Scanned Image Attachment for Report Dictated By: Radha Initials: Trans Date: 02/18/24 15:21 <<REPDIST>>
--- OUTSIDE RECORDS SUMMARY | 2024-12-03 00:40 | XMS_ITS ---
Author Organization Unknown Address [address] [place] [phone] Phone Care Team Providers Care Grocery Supervisor Name Role Phone RAMIRO WAGNER Attending Unavailable [...] URINE - Colle ct Date/Time: 11/08/2023 10:15 [facility] ID: [id number] [address] [place], [place], [id number] LOINC: Test Value Unit Reference Range Code Code System Flag URINE PREG NEGATIVE LUMBAR SPINE - Completed: 10:33 LOINC: EXAM DESCRIPTION: LUMBAR SPINE REASON FOR STUDY: NKI lower back pain no previous fx or surgery Duration: since 10/19/2023 TECHNIQUE: Frontal, lateral and cone-down radiographic view(s) of the lumbar spine. COMPARISON: None available FINDINGS: 5 [id number]-[id number] lumbar type vertebral bodies. There is mild levoconvex curvature. Lumbar vertebral body heights and disc spaces are maintained. There is no significant facet sclerosis. IMPRESSION: The lumbar vertebral body heights are maintained. THIS IS AN ELECTRONICALLY VERIFIED FINAL REPORT 11/09/2023 6:49 AM - Electronically signed by Dorian Patricia D.O. AP: AP Report ID: [id number] Reading Location: [id number] Social History Type Status Start Date End Date Code Code Syst em Smoking History Unknown if ever smoked [address] Sex Female Hospital Discharge Instructions Should you have any questions prior to discharge, please contact a member of your healthcare team. If you have left the hospital and have any questions, please contact your primary care physician. Reason For Referral No Data Found Plan of Treatment US Echo With Color ([id number]) 02/13/2024 Encounters Encounter Diagnosis Start Date Code Code Sys tem Pain in left shoulder 11/08/2023 SNOMED -CT Personal Care Team Section Performer Name Performer Role Active Date Inactive USHA Catherine PCP - Primary care physician Imaging Narrative Notes
--- OUTSIDE RECORDS SUMMARY | 2024-12-03 00:41 | XMS_ITS | Clinical Summary ---
Author Organization [facility] Address [address] [address] Phone Care Team Providers Care Route Sales Representative Name Role Phone Crispin Cruz MD Primary Care Provider [phone] Allergies Active Allergy Reactions Criticality Noted Date [...] on file Legal Sex Female 7:18 AM DELIVERY ASSOCIATE Gender Identity Not on file Sexual Orientation [...] PANEL ACUTE (AHP) Routine 09/11/2019 11:48 AM DELIVERY ASSOCIATE Serum total bilirubin elevated Abnormal weight loss Chronic nausea Right upper quadrant abdominal pain from Last 3 Months or Most Recently Relevant to Health Maintenance Results * HEPATITIS PANEL ACUTE (AHP) (09/11/2019 11:48 AM DELIVERY ASSOCIATE) HEPATITIS A IGM ANTIBODY NON DETECTED NON DETECTED 09/11/2019 9:25 PM DELIVERY ASSOCIATE [facility] Comment: IGM Antibodies to HAV not detected. Does not exclude early acute or recovered HAV infection. HEP B CORE AB (IGM) NON DETECTED NON DETECTED 09/11/2019 9:25 PM DELIVERY ASSOCIATE [facility] Comment:IGM anti-HBC not det ected. Does not exclude the possibility of exposure to or infection with HBV. HEPATITIS B SURFACE ANTIGEN NON DETECTED NON DETECTED 09/11/2019 9:25 PM DELIVERY ASSOCIATE [facility] Comment:A nonreactive test r esult does [...] antibody 0.17 <1 S/CO 09/11/2019 9:25 PM DELIVERY ASSOCIATE [facility] Comment: Signal/Cutoff ratio < 0.79 is Nondetected Signal/Cutoff ratio 0.80-0.99 is Grayzone Signal/Cutoff ratio > 0.99 is Detected Supplemental assays are recommended if signal/cutoff ratio is >/=1.00. Signal/cutoff ratio result >/= 5.00 is 97% predictive of positivity for recombinant immunoblot assay (RIBA) and will be reported to the [place] Department of Public Health as required. Blood specimen (specimen) Venipuncture / Unknown 09/11/2019 11:48 AM DELIVERY ASSOCIATE 09/11/2019 12:57 PM DELIVERY ASSOCIATE us Daphne Lawrence SPECIAL ASSEMBLIES SUPERVISOR, ADMISSIONS SPECIALIST HEMATOLOGY ORDERA BLES Final Result [facility] [address] [place] [address], [place] from Last 3 Months or Most Recently Relevant to Health Maintenance Insurance [facility] Care Teams Route Sales Representative Relationship Specialty Start Date End Date Crispin Cruz MD [address] [place] [address] PCP - General Pediatrics 09/11/19
--- NOTE | 2024-12-03 07:05 | WPDHPUPDATE1 ---
History and Physical Update Update Date/Time: 12/03/24 07:05 History and Physical has been reviewed, including an updated exam of the patient. There are NO changes in the patient's condition. Risks, benefits, and alternatives have been discussed and questions answered. Patient agrees to proceed with procedure.
[2024-12-03] MEDS: LACTATED RINGERS 1,000 ML 30 ML IV CONT ×2 (07:53→10:00)
[2024-12-03] MEDS: KETOROLAC 15 MG/ML VIAL (*BKC) IV PUSH (08:12)
[2024-12-03] MEDS: ACETAMINOPHEN 500 MG TABLET 1000 MG PO (08:12)
--- NOTE | 2024-12-03 08:29 | P.PNAN_ITS ---
Anes - Initial Pre Proc Eval Procedure: Operation Date: 12/03/24 09:00 Proposed Procedures p Diagnostic Laparoscopy, Right Ovarian Cystectomy - Junior Douglas MD Date/Time: 12/03/24 08:29 Surgeon: Junior Douglas MD Pre Op Diagnosis: right complex ovarian cyst, pain Patient Data Age: 24 Gender: F Height: 1.59 m Weight: 50 kg Allergies Allergy/AdvReac Type Severity Reaction Status Date / Time Penicillins Allergy Mild Rash Verified 11/30/24 08:28 Home Medications ?Medication ?Instructions ?Recorded ?Confirmed ?Type fluticasone propionate 50 1 spray intranasal Q12H 11/21/24 11/30/24 History mcg/actuation nasal spray,suspension naproxen 250 mg tablet 250 mg PO BID PRN pain #14 tabs 11/21/24 11/30/24 Rx hydrocodone 5 mg-acetaminophen 325 1 tablet PO Q6-8H PRN pain 11/30/24 11/30/24 History mg tablet hydrocodone 5 mg-acetaminophen 325 1 tablet PO Q4H PRN pain #20 tabs 12/03/24 Rx mg tablet Patient hx anesthesia problems: none Family hx anesthesia problems: none Results Review: All pre-operative results and documents have been reviewed as part of the pre- operative evaluation. [facility] Past Medical History Medical History Asthma Mantee syndrome Family History Family History Other No problems noted. Social History Social History Smoking status: Current every day smoker Tobacco type: e-cigarettes/vaping Alcohol intake: never Substance use: never Substance use type: marijuana Other substance usage details: THC marijuana occasionally Living arrangements: with family Gender identity (if verbalized by the patient): Female Sexual Orientation (if Verbalized by the Patient): Straight or Heterosexual Spiritual care concerns: No Anes - Eval Final PreProcedure Day of Procedure 12/03/24 08:29 Patient weight: thin Lungs: normal air movement Airway: Mallampati scale class II and special considerations (Slight overbite appreciated. ) Neurological: alert and oriented Last oral intake: >/= 8 hours ASA classification: II Emergent: no Anesthetic plan: proceed Anesthesia type and monitoring: general ETT and standard monitoring Results Review: All pre-operative results and documents have been reviewed as part of the pre- operative evaluation. Vapes daily, 1 seizure 2019 w nml w/u. Unclear etiology. Pt has never been on antiseizure meds. Informed Consent: The patient's anesthetic plan and its attendant risks and benefits were discussed with the patient/family/POA. Questions were solicited and answers provided to the satisfaction of the patient/family/POA.
--- NOTE | 2024-12-03 09:00 | W.PM.PROC2 ---
Procedure Note - Detailed Date of Procedure 12/03/24 Pre-op Diagnosis right complex ovarian cyst, pain Post-op Diagnosis Other (Right ovarian cyst/endometriosis) Procedure Performed Laparoscopy with destruction of right ovarian cyst and destruction of endometriosis Surgeon Junior Douglas MD Anesthesia General Indications 24-year-old female with a complex right ovarian cyst on ultrasound pelvic pain Findings Normal-appearing left ovary and tube. Small area for endometriosis and powder burn form on the right ovary. Endometriosis right left uterosacral ligament. Serosanguineous fluid in the cul-de-sac. Normal-appearing appendix gallbladder and liver edge. Normal-appearing uterus. Description of Procedure Patient was prepped draped in normal sterile fashion placed in dorsal lithotomy position. Under excellent general trach anesthesia weighted speculum placed in posterior fornix vagina. Anterior lip of the cervix grasped with single-tooth. Carlin's cannula inserted the cervix and attached to the single-tooth. This was used later for uterine manipulation. After emptying the bladder urine the weighted speculum was. The gloves changed. A supraumbilical incision made the Veress needle passed in the abdomen. Abdomen filled with CO2 gas [id number]. The 5mm trocar advanced under direct visualization assuring no injury. Patient placed in Trendelenburg and a suprapubic incision made. The 5mm trocar advanced under direct visualization assuring no injury. The above findings were seen. Irrigation undertaken of the serosanguineous fluid removed the small areas of endometriosis along the right left uterosacral ligament were cauterized at 35 w per 2nd with monopolar cautery. In similar fashion the area of endometriosis on the right ovary was cauterized there was a follicular cyst that was present with serosanguineous fluid this was opened in linear fashion and drained of clear fluid irrigation then performed again and no other abnormalities were seen. Photo documentation undertaken of the liver gallbladder and appendix as well. The lower site removed. The gas removed from the abdomen. The upper site removed. The incisions closed with 4 Monocryl and glue. Instruments removed from the vagina the patient was awakened. She went to recovery in satisfactory condition. All sponge, needle, instrument counts were correct. There were no immediate complications Estimated Blood Loss 5 Drains No Packing No Pathology None sent Complications No immediate complications Condition Stable Disposition PACU
[2024-12-03] MEDS: fentaNYL CITRATE INJ (*CRX) 100 MCG/2 ML VIAL 25 MCG IV PUSH ×2 (09:15→09:20)
[2024-12-03] MEDS: ONDANSETRON INJ 4 MG/2 ML VIAL IV PUSH (09:18)
[2024-12-03] MEDS: MIDAZOLAM HCL (*CRX) 2 MG/2 ML VIAL 1 MG IV PUSH ×2 (09:26→09:36)
--- NOTE | 2024-12-03 10:30 | SUR.PHASEI ---
MD notified of patients blood pressure. No new orders. RN will continue to monitor.
[2024-12-03] MEDS: oxyCODONE HCL (*CRX) 5 MG TAB IR PO (11:05)
== END 2024-12-03 11:36 | disposition home or self-care (01) ==
PROVIDERS: PCP Family Medicine; Visit Provider Obstetrics & Gynecology
PROC: (CPT 49320; principal; 2024-12-03 09:00)
DX: N80.101 Endometriosis of right ovary, unspecified depth (principal); N80.3C2 Endometriosis of the left uterosacral ligament, unspecified depth; J45.909 Unspecified asthma, uncomplicated; E80.4 Gilbert syndrome; F17.290 Nicotine dependence, other tobacco product, uncomplicated; Z79.1 Long term (current) use of non-steroidal anti-inflammatories (NSAID); Z79.891 Long term (current) use of opiate analgesic
CPT/HCPCS: 58662; A9270; J1100; J1885; J2003; J2250; J2405; J2704; J3010; J7030; J7120

== ENCOUNTER 2024-12-04 11:35 | Emergency (ER) | payer OTHER, SELFPAY ==
--- NOTE | ~2024-12-04 | CT_ITS ---
EXAMINATION: CTA chest PE abdomen pel DATE: 12/04/2024 13:20 INDICATION: Shortness of breath and right-sided abdominal pain TECHNIQUE: Computed tomography (CT) pulmonary angiogram of the chest was performed with 100 mL Omnipa que-350 intravenous contrast. Additional 3D reconstructions utilizing coronal maximum intensity proje ction (MIP) were performed. CT of the abdomen and pelvis was performed with intravenous contrast util izing the same contrast bolus following a short delay. Automated exposure control and iterative recon struction technique were employed. The dose-length product was 403.65 mGy-cm. COMPARISON: 11/21/2024 FINDINGS: Chest: No pulmonary embolism. Lungs are clear with no pneumonia, pulmonary edema or pleural effusion. Heart size is normal. No pericardial effusion. Thoracic aorta is normal in caliber with no dissection. No p athologically enlarged thoracic lymphadenopathy. Bones are unremarkable. Abdomen/pelvis: Small amount of pneumoperitoneum scattered throughout the abdomen and pelvis and small amount of soft tissue gas about the umbilicus and in the anterior left lower quadrant normal wall likely related to reported recent surgery. No abscess or free intraperitoneal fluid. Liver, gallbladder, spleen, pancr eas, bilateral adrenal glands and kidneys are normal. Bowels including the appendix are normal. Bladd er, uterus and bilateral adnexa are unremarkable with a couple approximately 1 cm low-attenuation cys ts/follicles at the left ovary. Seen peripherally enhancing partially collapsed corpus luteum cyst at the right ovary is no longer visualized and has likely either been drained resected. No pathological ly enlarged abdominal or pelvic lymphadenopathy. Bones are unremarkable. IMPRESSION: 1. No pulmonary embolism or other acute cardiopulmonary disease. 2. Small amount of free intraperitoneal gas as well as abdominal wall gas consistent with reported re cent laparoscopic surgery with likely either resection or drainage of a previously seen right ovarian cyst. No abscess or other acute intra-abdominal/pelvic process. Reviewed, dictated and finalized at location B. IMPRESSION: 1. No pulmonary embolism or other acute cardiopulmonary disease. 2. Small amount of free intraperitoneal gas as well as abdominal wall gas consi stent with reported recent laparoscopic surgery with likely either resection or drainage of a previously seen right ovarian cyst. No abscess or other acute in tra-abdominal/pelvic process.
[2024-12-04 11:36] VITALS: BP 125/74; PULSE 82; RESP 16; TEMP 36.7; O2SAT 100
--- NOTE | 2024-12-04 11:48 | ED_ITS ---
HPI - Abdominal Pain General Chief Complaint: Abdominal Pain Stated Complaint: abdominal pain Time Seen by Provider: 12/04/24 11:48 Source: patient and family Mode of arrival: ambulatory Limitations: no limitations History of Present Illness HPI narrative: patient is a 24-year-old female with a right ovarian cyst removed yesterday by surgery as well as endometriosis ablation. She did this at [facility]. She is here by suggestion of her OBGYN surgeon to get evaluated for her shortness of breath and right chest discomfort as well as abdominal incision site pain. MD elicited complaint: abdominal pain and other ( shortness of breath and right chest discomfort postoperatively with postop day 1) Pertinent past history: other ( Ovarian cysts and endometriosis) Onset (ago): day(s) ( 1) Pain Consistency: constant Location: chest, RLQ and LLQ Severity: mild Pain scale (0-10): 2 Quality: sharp Radiation: none Migration to: no migration Exacerbating factors: nothing Relieving factors: nothing Context: confirms recent surgery/procedure ( yesterday) Associated symptoms: denies other symptoms Treatments prior to arrival: prescription analgesics Related Data Home Medications ?Medication ?Instructions ?Recorded ?Confirmed ?Last Taken ?Type fluticasone propionate 50 1 spray intranasal Q12H 11/21/24 11/30/24 Unknown History mcg/actuation nasal spray,suspension Allergies Allergy/AdvReac Type Severity Reaction Status Date / Time Penicillins Allergy Mild Rash Verified 12/04/24 11:49 Review of Systems 2 Review of Systems: All systems reviewed & are unremarkable except as noted in HPI and below Constitutional: Constitutional: Reports no additional constitutional complaints Eyes: Eyes: Reports no additional eye complaints ENT: Reports system reviewed and no additional complaints, except as documented Cardiovascular: Cardiovascular: Reports no additional cardiovascular complaints Respiratory: Respiratory: Reports no additional respiratory complaints Gastrointestinal: Gastrointestinal: Reports no additional gastrointestinal complaints Genitourinary: Genitourinary: Reports no additional female genitourinary complaints Musculoskeletal: Musculoskeletal: Reports no additional musculoskeletal complaints Integumentary/Breasts: Skin/Breast: Reports system reviewed and no additional complaints, except as docu Neurologic: Reports system reviewed and no additional complaints, except as documented Psychiatric: Psychiatric: Reports no additional psychiatric complaints Endocrine: Endocrine: Reports no additional endocrine complaints Hematologic/Lymphatic: Hematologic/Lymphatic: Reports no additional hematologic/lymphatic complaints Allergic/Immunologic: Allergic/Immunologic: Reports no additional allergic/immunologic complaints [facility] Past Medical History Medical History (Updated 12/04/24 @ 14:13 by Shai Pacheco MD) Asthma Sarah Ann syndrome Family History Family History Other No problems noted. Social History Social History Smoking status: Current every day smoker Tobacco type: e-cigarettes/vaping Alcohol intake: never Substance use: never Substance use type: marijuana Other substance usage details: THC marijuana occasionally Living arrangements: with family Gender identity (if verbalized by the patient): Female Sexual Orientation (if Verbalized by the Patient): Straight or Heterosexual Spiritual care concerns: No Exam 2 Const: General: healthy appearing Nutritional Appearance: well nourished Orientation/consciousness: patient oriented x3 HENMT: Head: normal to inspection Ears: external ears normal F yonatan/Nose/Sinus: Normal external nose present Eyes: Conjunctivae: conjunctivae normal Pupils: Equal, round and reactive pupils present EOM: EOMs intact bilaterally Neck: Neck: normal visual inspection Chest: Chest palpation & inspection: normal inspection of the chest Resp: Effort & Inspection: normal respiratory effort and not labored A uscultation: clear to auscultation bilaterally and no crackles Cardio: Rate: regular rate Rhythm: regular rhythm Heart sounds: no murmurs GI: Inspection: non-distended GI Palp: Yes Soft to palpation, Yes Tenderness to palpation present (GI) ( diffuse lower abdomen), No Guarding due to palpation present (GI), No Rigid due to palpation, No Hernia present, No Palpable mass present and No Rebound tenderness present Auscultation: normal bowel sounds : General: Yes bladder normal to palpation Back/Spine/Pelvis: Back: no CVA tenderness Skin: General skin exam: normal color Rashes: no rashes Wounds: no wounds Neuro: General: patient oriented x3 Cranial nerves: Yes Nystagmus not present Speech: normal speech Gait exam (Neuro): Normal gait present Extrem: General: normal to inspection Psych: Mental Status: mental status grossly normal Affect: normal affect Attitude: cooperative Course Vital Signs Vital signs: Vital Signs Temperature 36.7 C 12/04/24 11:36 Pulse Rate 82 12/04/24 11:36 Respiratory Rate 16 12/04/24 11:36 Blood Pressure 125/74 12/04/24 11:36 Pulse Oximetry 100 12/04/24 11:36 Oxygen Delivery Room Air 12/04/24 11:36 Temperature 36.7 C 12/04/24 11:36 Pulse Rate 82 12/04/24 11:36 Respiratory Rate 16 12/04/24 11:36 Blood Pressure 125/74 12/04/24 11:36 Pulse Oximetry 100 12/04/24 11:36 Oxygen Delivery Room Air 12/04/24 11:36 MDM - Abdominal Pain MDM Narrative Medical decision making narrative: patient is a 24-year-old female with abdominal pain and shortness of breath after surgery done yesterday. We will get a CT PE of her chest as well as a CT with contrast abdomen and pelvis with labs. We will check her urine as well. Lab Data Attestation: I reviewed the patient's lab results. 12/04/24 12:10 12/04/24 12:10 Labs: Lab Results 12/04/24 12/04/24 Range/Units 12:10 12:13 WBC 6.3 (4.8-10.8) K/mm3 RBC 4.38 (4.20-5.40) M/mm3 Hgb 12.6 (12.0-15.0) g/dL Hct 39.5 (35.0-49.0) % MCV 90.2 (78.0-102.0) fL MCH 28.8 (27.0-31.0) pg MCHC 31.9 L (32-36) g/dL RDW 11.9 (11.6-14.4) % Plt Count 213 (150-420) K/mm3 MPV 11.2 (9.2-11.8) fl Immature Gran % (Auto) 0.2 H (0.0-0.0) % Neut % (Auto) 60.7 (50.0-70.0) % Lymph % (Auto) 31.8 (18.0-42.0) % [place] % (Auto) 6.5 (2.0-11.0) % Eos % (Auto) 0.5 L (1.0-6.0) % Baso % (Auto) 0.3 (0.0-1.0) % Lymph # (Auto) 2.00 (1.10-4.50) K/mm3 [place] # (Auto) 0.41 (0.10-0.90) K/mm3 Eos # (Auto) 0.03 (0.02-0.50) K/mm3 Baso # (Auto) 0.02 (0.00-0.10) K/mm3 Abs Immat Gran (auto) 0.01 H (0.00-0.00) K/mm3 Absolute Neuts (auto) 3.81 (1.70-7.20) K/mm3 Absolute Nucleated RBC 0.00 (0.00-0.00) K/mm3 Nucleated RBC % 0.0 (0-0.0) % PT 12.1 (9.50-12.1) Seconds INR 1.1 APTT 25.1 (23.9-30.70) Sec Sodium 140 (137-145) mmol/L Potassium 3.3 L (3.4-5.0) mmol/L Chloride 103 (98-107) mmol/L Carbon Dioxide 29 (22-30) mmol/L Anion Gap 8 (4-12) mmol/L BUN 6 L (7-17) mg/dL Creatinine 0.76 (0.7-1.0) mg/dL Estim Creat Clear Calc 75 ml/min Estimated GFR > 60 (59 - ) Glucose 95 (65-110) mg/dL Calculated Osmolality 287 (285-295) mOsm/kg Calcium 9.1 (8.4-10.2) mg/dL Total Bilirubin 1.2 (0.2-1.3) mg/dL AST 30 (14-36) U/L ALT 34 (6-35) U/L Alkaline Phosphatase 79 (38-126) U/L Troponin I < 0.012 (0.000-0.034) ng/mL Total Protein 7.0 (6.3-8.2) g/dL Albumin 4.4 (3.5-5.1) g/dL Urine Color Light yellow (Yellow) Urine Appearance Clear (Clear) Urine pH 6.0 (5.0-8.0) Ur Specific [place] <= 1.005 L (1.010-1.020) Urine Protein Negative (Negative) Urine Glucose (UA) Negative (Negative) Urine Ketones Negative (Negative) Ur Blood (Man) Trace-intact H (Negative) Urine Nitrate Negative (Negative) Urine Bilirubin Negative (Negative) Urine Urobilinogen 0.2 (0.2-1.0) mg/dL Leukocyte Esterase Rfl Negative (Negative) RORY/UL Urine Test Negative Imaging Data Attestation: I personally reviewed and interpreted this imaging study as follows: Radiologist's impression: ITS Impressions Chest/Abdomen/Pelvis CTA 12/04/24 13:25 IMPRESSION: 1. No pulmonary embolism or other acute cardiopulmonary disease. 2. Small amount of free intraperitoneal gas as well as abdominal wall gas consistent with reported recent laparoscopic surgery with likely either resection or drainage of a previously seen right ovarian cyst. No abscess or other acute intra-abdominal/pelvic process. Discharge Plan Discharge Clinical Impression: Post-operative pain Patient Disposition: Home, Self-Care Condition: Stable Instructions: Ovarian Cyst Removal (DC) Additional Instructions: Please follow-up with the surgeon as planned in the next 1-2 weeks. Patient Language: Luxembourgish Prescriptions: No Action fluticasone propionate 50 mcg/actuation spray,suspension 1 spray INTRANASAL Q12H hydrocodone-acetaminophen 5-325 mg tablet 1 tablet PO Q4H PRN (Reason: pain) Qty: 20 0RF Follow-up/Referrals: Crispin Cruz MD [Primary Care Provider] - Time of Disposition: 14:13
[2024-12-04 12:13] LABS: Basophils Absolute Auto 0.02 K/mm3 (0.00-0.10); Basophils Percent Auto 0.3 % (0.0-1.0); Eosinophils Absolute Auto 0.03 K/mm3 (0.02-0.50); Eosinophils Percent Auto 0.5 % (1.0-6.0); Hematocrit 39.5 % (35.0-49.0); Hemoglobin 12.6 g/dL (12.0-15.0); Immature Granulocyte Absolute 0.01 K/mm3 (0.00-0.00); Immature Granulocyte Percent A 0.2 % (0.0-0.0); Lymphocytes Percent Auto 31.8 % (18.0-42.0); Mean Corpuscular HGB Conc 31.9 g/dL (32-36); Mean Corpuscular Hemoglobin 28.8 pg (27.0-31.0); Mean Corpuscular Volume 90.2 fL (78.0-102.0); Mean Platelet Volume 11.2 fl (9.2-11.8); Monocytes Absolute Auto 0.41 K/mm3 (0.10-0.90); Monocytes Percent Auto 6.5 % (2.0-11.0); Neutrophils Absolute Auto 3.81 K/mm3 (1.70-7.20); Neutrophils Percent Auto 60.7 % (50.0-70.0); Platelet Count Result 213 K/mm3 (150-420); Red Blood Count 4.38 M/mm3 (4.20-5.40); Red Cell Distribution Width 11.9 % (11.6-14.4); White Blood Count 6.3 K/mm3 (4.8-10.8)
[2024-12-04 12:28] LABS: INR 1.1; Partial Thromboplastin Time 25.1 Sec (23.9-30.70); Prothrombin Time 12.1 Seconds (9.50-12.1)
--- OUTSIDE RECORDS SUMMARY | 2024-12-04 12:28 | XMS_ITS ---
Author Organization Unknown Address [address] [place] [phone] Phone Care Team Providers Care Log Buyer Name Role Phone RAMIRO WAGNER Attending Unavailable [...] URINE - Colle ct Date/Time: 11/08/2023 10:15 [facility] ID: [id number] [address] [place], [place], [id number] LOINC: Test Value Unit Reference Range Code Code System Flag URINE PREG NEGATIVE LUMBAR SPINE - Completed: 10:33 LOINC: EXAM DESCRIPTION: LUMBAR SPINE REASON FOR STUDY: NKI lower back pain no previous fx or surgery Duration: since 10/19/2023 TECHNIQUE: Frontal, lateral and cone-down radiographic view(s) of the lumbar spine. COMPARISON: None available FINDINGS: 5 [id number] lumbar type vertebral bodies. There is mild levoconvex curvature. Lumbar vertebral body heights and disc spaces are maintained. There is no significant facet sclerosis. IMPRESSION: The lumbar vertebral body heights are maintained. THIS IS AN ELECTRONICALLY VERIFIED FINAL REPORT 11/09/2023 6:49 AM - Electronically signed by Dorian Patricia D.O. AP: AP Report ID: [id number] Reading Location: [id number] Social History Type Status Start Date End Date Code Code Syst em Smoking History Unknown if ever smoked [id number] Sex Female Hospital Discharge Instructions Should you have any questions prior to discharge, please contact a member of your healthcare team. If you have left the hospital and have any questions, please contact your primary care physician. Reason For Referral No Data Found Plan of Treatment US Echo With Color ([id number]) 02/13/2024 Encounters Encounter Diagnosis Start Date Code Code Sys tem Pain in left shoulder 11/08/2023 SNOMED -CT Personal Care Team Section Performer Name Performer Role Active Date Inactive USHA Catherine PCP - Primary care physician Imaging Narrative Notes
--- OUTSIDE RECORDS SUMMARY | 2024-12-04 12:28 | XMS_ITS | Clinical Summary ---
Author Organization [facility] Address [address] [place] [address] Care Team Providers Care Automotive Mechanical Engineer Name Role Phone Crispin Cruz MD Primary Care Provider Source Comments [facility],non-owned Affiliates and Associated Physician Practices is amultiple site organization consisting of ambulatory clinics and hospital sitesin [place], [place], [place] and [place]. This disclosure is being madepursuant to the Care Everywhere program and may not contain all information available regarding this patient. Last updated 18.[facility] [place] Allergies Active Allergy Reactions Criticality Noted Date [...] Comments Blood Pressure 104/68 08/21/2018 8:43 AM [facility] Pulse 79 06/14/2017 7:49 AM CDT per p cp Temperature 35.9 C (96.6 F) 06/14/2017 7:49 AM CDT per pcp Respiratory Rate 16 03/26/2017 9:13 AM CDT Oxygen Saturation 99% 03/26/2017 9:13 AM CDT Inhaled Oxygen Concentration - - Weight 47.3 kg (104 lb 4.4 oz) 08/21/2018 8:43 A M [facility] Height 159.8 cm (5' 2.91 ) 08/21/2018 8:43 AM CS T Body Mass Index 18.52 08/21/2018 8:43 AM [facility] Plan of Treatment Health Maintenance Due Date [...] age to complete this topic Care Teams Automotive Mechanical Engineer Relationship Specialty Start Date End Date Crispin Cruz MD [address] [place] [phone] PCP - General Family Medicine 03/26/17
--- OUTSIDE RECORDS SUMMARY | 2024-12-04 12:28 | XMS_ITS ---
Author Organization Unknown Address [address] [place] [phone] Phone Care Team Providers Care Communications Supervisor Name Role Phone EDWARD ANASTACIOANGYAshok Attending Unavailable [...] Smoking History Unknown if ever smoked [id number] Sex Female Hospital Discharge Instructions Should you have any questions prior to discharge, please contact a member of your healthcare team. If you have left the hospital and have any questions, please contact your primary care physician. Reason For Referral No Data Found Plan of Treatment US Echo With Color ([id number]) 02/13/2024 Encounters Encounter Diagnosis Start Date Code Code Sys tem Abnormal electrocardiogram [ECG] [EKG] 11/26/2023 SNOMED-CT Personal Care Team Section Performer Name Performer Role Active Date Inactive USHA Catherine PCP - Primary care physician
--- OUTSIDE RECORDS SUMMARY | 2024-12-04 12:28 | XMS_ITS | Data Portability ---
Author Organization [facility] [place] Address [address] [place] [address] Assessment Encounter Date Assessment Date Assessment LastModified by Organization Details LastModified Time 01/03/2021 01/03/2021 nexplanon removed declines contraception WWE UTD [email or web address] Not available 01/03/2021 13:06:39 Plan of Treatment Reminders Order Date Submit Date Provider Last Modified By Organization Details Last Modified Time Details Appointments None recorded. Lab None recorded. Referral None recorded. Procedures None recorded. Surgeries None recorded. Imaging None recorded. Medication Orders nystatin-t riamcinolo ne 100,000 unit/gram- 0.1 % topical ointment 2019 020 [id number], [address] [place], [address], 12:42:18 Patient TargetsNo targets recorded. Patient Instructions Encounter Date Encounter Id Patient Instructions Last Modified By Organization Details Last Modified Time 05/17/2020 [id number] good vulvar care , finish diflucan start ointment f/u wwe [email or web address] Not available 05/17/2020 17:44:47 01/03/2021 [id number] learning about control Not available 01/03/2021 13:06:40 surgical trays* Not [...] rk [address], [place] [address] , Dilan Padron ra, DO, Labor atory [...] antione resul ts of Misty l or [place] hiwot are deter mined by calcu latin [...] e isaac cteri stics deter mined by [facility] logis [employer], [employer] d/b/a [facility] Bloxr. It has not been clear ed or appro orion by the U.S. Food and Drug Admin istra tion. The FDA has deter mined that such clear ance or appro paco is not neces erika. Perti nent refer ence inter vals are avail able from the [facility] atory on reque st. Test( s) perfo rmed by [employer] Patho logis [employer], [employer], d/b/a [facility], [address], [place] [address] , Dilan Padron ra, DO, Labor atory Dire tor. Not Available [facility] ([facility]) [address] [facility] [address], [place], [address], 05/20/2020 15:27:07 05/17/20 20 05/20/2020 bacte rial [...] [address], [place] [address] , Dilan Padron ra, DO, Labor atory Direc tor. Gardn erell a vagin dante, Hortensia da speci es: Genom ic DNA is isola hiwot from patie nt speci mens by stand sabiha labor atory techn iques and julio zed using custo m OpenA rray plate s, perfo rmed on the [employer] 12K Flex Real Time PCR syste m. A posit rakan resul t is provi ded for patho genic bacte payal, virus and/o r funga l speci es based on detec tion of ampli ficat ion produ cts. Misty l vagin al antione resul ts of Misty l or [place] hiwot are deter mined by calcu latin [...] isaac cteri stics deter mined by [facility] logis ts, [facility] d/b/a [facility] roup. It has not been clear ed or appro orion by the U.S. Food and Drug Admin istra tion. The FDA has deter mined that such clear ance or appro paco is not neces erika. Perti nent refer ence inter vals are avail able from the labor atory on reque st. Test( s) perfo rmed by [employer]Med[employer] iat[employer]medo Ltd Patho logis [employer], [employer], d/b/a [facility] roup, [address], [place] [address] , Dilan Padron ra, DO, Labor atory Dire tor. Not Available [facility] ([facility]) [address], [place], [address], 05/20/2020 15:27:07 05/17/20 20 05/20/2020 bacte rial [...] ing error . Test perfo rmed by AssCDEL Patho logis [employer], [employer], d/b/a [facility] roup, [address], [place] [address] , Dilan Padron ra, DO, Labor atory Direc tor. Arminda xavier a vagin dante, Hortensia da speci es: Genom ic DNA is isola hiwot from patie nt speci mens by stand sabiha labor atory techn iques and julio zed using custo m OpenA rray plate s, perfo rmed on the [employer] o 12K Flex Real Time PCR syste m. A posit rakan resul t is provi ded for patho genic bacte payal, virus and/o r funga l speci es based on detec tion of ampli ficat ion produ cts. Misty l vagin al antione resul ts of Misty l or [place] hiwot are deter mined by calcu latin [...] e isaac cteri stics deter mined by [employer], [employer] d/b/a PathG rou[employer]elator [employer]aceuticals. It has not been clear ed or appro orion by the U.S. Food and Drug Admin istra tion. The FDA has deter mined that such clear ance or appro paco is not neces erika. Perti nent refer ence inter vals are avail able from the labor atory on reque st. Test( s) perfo rmed by [employer] Patho [employer], [employer], d/b/a [facility] roup, [address], [place] [address] , Dilan Padron ra, DO, Labor atory Direc tor. Not Available [facility] ([facility]) [address], [place], [address], 05/20/2020 15:27:07 Result Notes None recorded. Problems Name Problem SNOMED Code Status Onset Date Resolution Date Notes Provider Name and Address Organization Details Recorded Time Contrace ptive sheath status 098378916 Completed 201801/03/2021 Encounte r for initial prescrip tion of other contrace ptives;R ecorded Elsewher e: No [facility] S ource: EHR Executive Marketing Assistant sean: N Dee Dee ce ID: 0001 Rolando lable Time: 01:00:00 PM Sophia Hugo MD [address], [place], [address], [facility] 12:44:56 Amenorrh ea 52017507 Completed 201801/03/2021 Amenorrh ea;Recor ded Elsewher e: No [facility]at [facility] S ource: EHR Executive Marketing Assistant sean: Rodolfo Funez ce ID: 0001 Rolando lable Time: 01:00:00 PM Sophia Hugo MD [address], [place], [address], [facility] 12:44:53 Pregnanc y test negative 051537963 Completed 201801/03/2021 Encounte r for pregnanc y test, result negative ;Recorde d Elsewher e: No [facility] ource: EHR Executive Marketing Assistant sean: Rodolfo Funez ce ID: 0001 Rolando lable Time: 01:00:00 PM Sophia Hugo MD [address], [place], [address], [facility] 12:45:01 Pelvic and perineal pain 306642626 Completed 201801/03/2021 Pelvic and perineal pain;Rec orded Elsewher e: No Locat ion: [facility] S ource: EHR Executive Marketing Assistant sean: N Dee Dee ce ID: 0001 Rolando lable Time: 01:00:00 PM Sophia Hugo MD [address], [place], [address], [facility] 1 12:45:06 Educatio n Completed 201801/03/2021 Encounte r for other general counseli ng and advice on contrace ption;Re corded Elsewher e: No Locat ion: [facility] S ource: EHR Executive Marketing Assistant sean: N Dee Dee ce ID: 0001 Rolando lable Time: 01:00:00 PM Sophia Hugo MD [address], [place], [address], [facility] 12:44:59 Procedur e Completed 201801/03/2021 Encounte r for checking , reinsert ion or removal of implanta ble subderma l contrace ptive;Re corded Elsewher e: No Locat ion: [facility] S ource: EHR Executive Marketing Assistant sean: Rodolfo Funez ce ID: 0001 Rolando lable Time: 01:00:00 PM Sophia Hugo MD [address], [place], [address], [facility] 12:45:04 Problem Notes None recorded. Procedures Surgical History Date Name Laterality Status Provider Name and Address Organization Details Recorded Time 01/04/20 21 Nexplanon Removal completed Sophia Hugo MD [address], [place], [address], [facility] 01/03/2021 13:05:36 09/09/19 19 open reduction of dislocation of finger completed Rubia Mejia [facility] 05/17/2020 20:48:51 09/09/19 17 open reduction of dislocation of finger completed Rubia Mejia [facility] 05/17/2020 20:48:40 09/09/19 13 Unlisted px vestibule mouth completed Rubia Mejia [facility] 05/17/2020 20:49:03 Imaging Results None recorded. Procedure Notes None recorded. Medical Equipment None Reported. Allergies Allergen ID Allergen Name Allergen Category Reaction Reaction Severity Criticality Documentation Date Start Date Code Code System Note Provider Name and Address Organization Details Recorded Time 84102 acetamino phen medicatio n Not available Not available Not available 08/26/2020 161 RxNorm Comme nt: [facility] Agent : Tylen ol; Not Available [facility] 14:17:46 1970 Product containin g penicilli n (product) medicatio n Not available Not available Not available 05/17/2020 41044 8001 SNOMED Rubia Mejia [place], [place] - [facility] 0 17:40:44 Medications Name Sig Start [...] Prescrib ed Elsewher e: No Locat ion: [facility] odify By: kpanyik Encoundonnie r DateTime : [...] 1 157.48 cm 10 % 18.5 kg/m2 15637.8 3 g 116 mm[Hg] 78 mm[Hg] Radha Morris [facility] 1 12:41:58 Date Recorded Body height Body mass index (BMI) Percentile per age and sex Body mass index (BMI) Body weight Systolic blood pressure Diastolic blood pressure Provider Name and Address Organization Details Last Updated DateTime 0 157.48 cm 14 % 18.8 kg/m2 76306.0 1 g 102 mm[Hg] 65 mm[Hg] Rubia Mejia [facility] 0 17:40:34 Social History Question Answer Notes LastModified by Organizat ion Details LastModified Time Tobacco Smoking Status Current Every Day Smoker Rubia Mejia [facility] 05/17/2020 20:47:51 What Is Your Level Of Alcohol Consumption? Occasional [email or web address] Information not available 05/17/2020 Do You Or Have You Ever Used E-cigarettes Or Vape? Current User Of Electronic Cigarettes [email or web address] Information not available 05/17/2020 What Was The Date Of Your Most Recent Tobacco Screening? 05/17/2020 [email or web address] Information not available 05/17/2020 Do You Or Have You Ever Used Smokeless Tobacco? Never Used Smokeless Tobacco [email or web address] Information not available 05/17/2020 How Much Tobacco Do You Smoke? 1 PPW [email or web address] Information not available 05/17/2020 Sex: Unknown Functional Status Question Answer Note LastModified by Organizat ion Details LastModified Time What is your exercise level? Occasional [email or web address] Information not available 05/17/2020 Mental Status None recorded. Family History Relationship Description Onset Age of this Age Resolved Age Notes LastModified by Organization Details LastModified Time Maternal Grandfather Heart disease Not available 05/17 20:45:13 Maternal Grandfather Malignant tumor of colon [email or web address] Not available 05/17 20:45:33 Maternal Grandfather Hypercholest erolemia [email or web address] Not available 05/17 20:45:44 Maternal Grandfather Hypertensive disorder [email or web address] Not available 05/17 20:45:51 Maternal Grandmother Malignant tumor of colon [email or web address] Not available 05/17 20:45:33 Maternal Grandmother Malignant tumor of ovary [email or web address] Not available 05/17 20:46:05 Maternal Grandmother Malignant tumor of breast [email or web address] Not available 05/17 20:46:16 Maternal Grandmother Malignant tumor of cervix [email or web address] Not available 05/17 20:46:35 Maternal Grandmother Cyst of ovary [id number] Not available 05/17 20:46:54 Mother Cyst of ovary [email or web address] Not available 05/17 20:46:54 Mother Endometriosi s (clinical) [email or web address] Not available 20:47:25 Paternal Grandmother Diabetes mellitus Not available 05/17 20:47:36 Notes:Maternal grandfather: Heart [...] SNOMED-CT Code Diagnosis ICD10 Code Diagnosis Note [id number] Janny Case CNM [place] [address] [address] 05/17/2020 17:20:03 05/17/2020 18:09:30 Candidiasis of vagina [id number] B37.3 03447 Sophia Hugo MD [place] [address] [address] 01/03/2021 12:31:17 01/03/2021 13:08:50 Removal of subcutaneous contraceptive 038077519 Z30.46 Health Concerns Section Related Observation LastModified by Organization Detai ls LastModified Time None Recorded Concern Status LastModified by Organization Details LastModified Time None Recorded Advance Directives Directive None Recorded Payers Encounter Date Sequence Insurance Name Policy Number Policy Cordero Covered Member ID Cordero Member ID Guarantor Name 05/17/2020 1 [place] [id number] Brain Barrett [id number] Sh[address] Hanna 01/03/2021 1 [place] [id number] Brain Barrett [id number] Shade Hanna Notes Date Note Type Note Provider Name and Address Organization Details Recorded Time 05/17/2020 text/html Vaginal/Vulvar ProblemReported bypatient.Notes:pcp gave her antibiotics for a yeast infection, itching burning worsened and pt to ED and given 3 diflucan sxs are improving slightly Janny Case CNM [address], [place], [address], [facility] 05/17/2020 17:44:59 01/03/2021 text/html Here for nexplan on removal. Has never liked it since placed 1.5 years ago, but now bleeding for 4 weeks and molina, wants it out. Planning condoms, maybe OCP in a bit. Sophia Hugo MD [address], [place], [address], [facility] 01/03/2021 13:07:03 OBGyn Episode No OBEpisode recorded.
[2024-12-04 12:29] LABS: Add Urine Microscopic? NO; Appearance Urine Clear (Clear); Bilirubin Urine Negative (Negative); Blood Urine Trace-intact (Negative); Color Urine Light Yellow (Yellow); Glucose Urine UA Negative (Negative); Ketones Urine Negative (Negative); Leukocyte Esterase Ur Negative LEU/UL (Negative); Nitrate Urine Negative (Negative); Protein Urine Negative (Negative); Specific Grav Ur <= 1.005 (1.010-1.020); Urobilinogen Urine 0.2 mg/dL (0.2-1.0)
--- OUTSIDE RECORDS SUMMARY | 2024-12-04 12:29 | XMS_ITS ---
Author Organization Unknown Address [address] [place] [phone] Phone Care Team Providers Care Call Center Associate Name Role Phone EDWARD ANASTACIOANGYAshok Attending Unavailable [...] Smoking History Unknown if ever smoked [id number] Sex Female Hospital Discharge Instructions Should you have any questions prior to discharge, please contact a member of your healthcare team. If you have left the hospital and have any questions, please contact your primary care physician. Reason For Referral No Data Found Plan of Treatment US Echo With Color ([id number]) 02/13/2024 Encounters Encounter Diagnosis Start Date Code Code Sys tem Abnormal electrocardiogram [ECG] [EKG] 10/29/2023 SNOMED-CT Personal Care Team Section Performer Name Performer Role Active Date Inactive USHA Catherine PCP - Primary care physician
--- OUTSIDE RECORDS SUMMARY | 2024-12-04 12:29 | XMS_ITS | Clinical Summary ---
Author Organization [facility] Address [address] [address] Phone Care Team Providers Care Sheet Metal Welder Name Role Phone Crispin Cruz MD Primary Care Provider [phone] Allergies Active Allergy Reactions Criticality Noted Date [...] on file Legal Sex Female 7:18 AM WAIT STAFF Gender Identity Not on file Sexual Orientation [...] PANEL ACUTE (AHP) Routine 09/11/2019 11:48 AM WAIT STAFF Serum total bilirubin elevated Abnormal weight loss Chronic nausea Right upper quadrant abdominal pain from Last 3 Months or Most Recently Relevant to Health Maintenance Results * HEPATITIS PANEL ACUTE (AHP) (09/11/2019 11:48 AM WAIT STAFF) HEPATITIS A IGM ANTIBODY NON DETECTED NON DETECTED 09/11/2019 9:25 PM WAIT STAFF [facility] Comment: IGM Antibodies to HAV not detected. Does not exclude early acute or recovered HAV infection. HEP B CORE AB (IGM) NON DETECTED NON DETECTED 09/11/2019 9:25 PM WAIT STAFF [facility] Comment:IGM anti-HBC not det ected. Does not exclude the possibility of exposure to or infection with HBV. HEPATITIS B SURFACE ANTIGEN NON DETECTED NON DETECTED 09/11/2019 9:25 PM WAIT STAFF [facility] Comment:A nonreactive test r esult [...] antibody 0.17 <1 S/CO 09/11/2019 9:25 PM WAIT STAFF [facility] Comment: Signal/Cutoff ratio < 0.79 is Nondetected Signal/Cutoff ratio 0.80-0.99 is Grayzone Signal/Cutoff ratio > 0.99 is Detected Supplemental assays are recommended if signal/cutoff ratio is >/=1.00. Signal/cutoff ratio result >/= 5.00 is 97% predictive of positivity for recombinant immunoblot assay (RIBA) and will be reported to the [place] Department of Public Health as required. Blood specimen (specimen) Venipuncture / Unknown 09/11/2019 11:48 AM WAIT STAFF 09/11/2019 12:57 PM WAIT STAFF us Daphne Lawrence CONCESSION MANAGER, CHAIRMAN & CHIEF EXECUTIVE OFFICER HEMATOLOGY ORDERA BLES Final Result [facility] [address] [place] [address], [place] from Last 3 Months or Most Recently Relevant to Health Maintenance Insurance [facility] Care Teams Sheet Metal Welder Relationship Specialty Start Date End Date Crispin Cruz MD [address] [place] [address] PCP - General Pediatrics 09/11/19
--- OUTSIDE RECORDS SUMMARY | 2024-12-04 12:29 | XMS_ITS ---
Author Organization Unknown Address [address] [place] [phone] Phone Care Team Providers Care Automobile Mechanic Helper Name Role Phone EDWARD ANASTACIOANGYAshok Attending Unavailable [...] Smoking History Unknown if ever smoked [id number] Sex Female Hospital Discharge Instructions Should you have any questions prior to discharge, please contact a member of your healthcare team. If you have left the hospital and have any questions, please contact your primary care physician. Reason For Referral No Data Found Plan of Treatment US Echo With Color ([id number]) 02/13/2024 Encounters Encounter Diagnosis Start Date Code Code Sys tem Electrocardiogram abnormal 02/13/2024 [id number] S NOMED-CT Personal Care Team Section Performer Name Performer Role Active Date Inactive USHA Catherine PCP - Primary care physician Imaging Narrative Notes [facility] 02/18/2024 15:21 [place] [address] RADIOLOGY REPORT Patient Number: [id number] Patient Name: FLOR RAMIREZ Type: O/P MR Number: [id number] : 2000 Age: 24 Sex: F Room #: Admit Date: 02/13/24 Discharge Date 02/13/24 Ordering Physician: EDWARD DIOR [facility] Physician: LUCY Lackey Physician: X-Ray Number : [id number] US ECHO W/ COLOR [id number] COMPLETE:02/13/24 15:34 APC [id number] (REASON-ECHO COMPLTE: abn ekg See Scanned Image Attachment for Report Dictated By: Radha Initials: Trans Date: 02/18/24 15:21 <<REPDIST>>
--- OUTSIDE RECORDS SUMMARY | 2024-12-04 12:46 | XMS_ITS ---
Author Organization Unknown Address [address] [place] [phone] Phone Care Team Providers Care Bar Steward Name Role Phone EDWARD ANASTACIOANGYAshok Attending Unavailable [...] Smoking History Unknown if ever smoked [id number] Sex Female Hospital Discharge Instructions Should you have any questions prior to discharge, please contact a member of your healthcare team. If you have left the hospital and have any questions, please contact your primary care physician. Reason For Referral No Data Found Plan of Treatment US Echo With Color ([id number]) 02/13/2024 Encounters Encounter Diagnosis Start Date Code Code Sys tem Abnormal electrocardiogram [ECG] [EKG] 10/29/2023 SNOMED-CT Personal Care Team Section Performer Name Performer Role Active Date Inactive USHA Catherine PCP - Primary care physician
--- OUTSIDE RECORDS SUMMARY | 2024-12-04 12:46 | XMS_ITS ---
Author Organization Unknown Address [address] [place] [phone] Phone Care Team Providers Care Poultry Breeder Name Role Phone EDWARD ANASTACIOANGYAshok Attending Unavailable [...] Smoking History Unknown if ever smoked [address] Sex Female Hospital Discharge Instructions Should you have any questions prior to discharge, please contact a member of your healthcare team. If you have left the hospital and have any questions, please contact your primary care physician. Reason For Referral No Data Found Plan of Treatment US Echo With Color ([id number]) 02/13/2024 Encounters Encounter Diagnosis Start Date Code Code Sys tem Abnormal electrocardiogram [ECG] [EKG] 11/26/2023 SNOMED-CT Personal Care Team Section Performer Name Performer Role Active Date Inactive USHA Catherine PCP - Primary care physician
--- OUTSIDE RECORDS SUMMARY | 2024-12-04 12:46 | XMS_ITS ---
Author Organization Unknown Address [address] [place] [phone] Phone Care Team Providers Care Heat And Vent Aircraft Mechanic Name Role Phone EDWARD ANASTACIOANGYAshok Attending Unavailable [...] Smoking History Unknown if ever smoked [id number] Sex Female Hospital Discharge Instructions Should you have any questions prior to discharge, please contact a member of your healthcare team. If you have left the hospital and have any questions, please contact your primary care physician. Reason For Referral No Data Found Plan of Treatment US Echo With Color ([id number]) 02/13/2024 Encounters Encounter Diagnosis Start Date Code Code Sys tem Electrocardiogram abnormal 02/13/2024 [id number] S NOMED-CT Personal Care Team Section Performer Name Performer Role Active Date Inactive USHA Catherine PCP - Primary care physician Imaging Narrative Notes [facility] 02/18/2024 15:21 [place] [address] RADIOLOGY REPORT Patient Number: [id number] Patient Name: FLOR RAMIREZ Type: O/P MR Number: [id number] : 2000 Age: 24 Sex: F Room #: Admit Date: 02/13/24 Discharge Date 02/13/24 Ordering Physician: EDWARD DIRO [facility] Physician: LUCY Lackey Physician: X-Ray Number : [id number] US ECHO W/ COLOR [id number] COMPLETE:02/13/24 15:34 APC [id number] (REASON-ECHO COMPLTE: abn ekg See Scanned Image Attachment for Report Dictated By: Radha Initials: Trans Date: 02/18/24 15:21 <<REPDIST>>
--- OUTSIDE RECORDS SUMMARY | 2024-12-04 12:46 | XMS_ITS ---
Author Organization Unknown Address [address] [place] [phone] Phone Care Team Providers Care Functional Analyst Name Role Phone RAMIRO WAGNER Attending [...] URINE - Colle ct Date/Time: 11/08/2023 10:15 [facility] ID: [id number] [address] [place], [place], [phone] LOINC: Test Value Unit Reference Range Code Code System Flag URINE PREG NEGATIVE LUMBAR SPINE - Completed: 10:33 LOINC: EXAM DESCRIPTION: LUMBAR SPINE REASON FOR STUDY: NKI lower back pain no previous fx or surgery Duration: since 10/19/2023 TECHNIQUE: Frontal, lateral and cone-down radiographic view(s) of the lumbar spine. COMPARISON: None available FINDINGS: 5 [id number] lumbar type vertebral bodies. There is mild levoconvex curvature. Lumbar vertebral body heights and disc spaces are maintained. There is no significant facet sclerosis. IMPRESSION: The lumbar vertebral body heights are maintained. THIS IS AN ELECTRONICALLY VERIFIED FINAL REPORT 11/09/2023 6:49 AM - Electronically signed by Dorian Patricia D.O. AP: AP Report ID: [id number] Reading Location: [id number] Social History Type Status Start Date End Date Code Code Syst em Smoking History Unknown if ever smoked [id number] Sex Female Hospital Discharge Instructions Should you have any questions prior to discharge, please contact a member of your healthcare team. If you have left the hospital and have any questions, please contact your primary care physician. Reason For Referral No Data Found Plan of Treatment US Echo With Color ([id number]) 02/13/2024 Encounters Encounter Diagnosis Start Date Code Code Sys tem Pain in left shoulder 11/08/2023 SNOMED -CT Personal Care Team Section Performer Name Performer Role Active Date Inactive USHA Catherine PCP - Primary care physician Imaging Narrative Notes
[2024-12-04 12:48] LABS: Pregnancy On Board Control Positive; Urine Pregnancy Test Negative
[2024-12-04 12:55] LABS: Alanine Aminotransferase 34 U/L (6-35); Albumin Level 4.4 g/dL (3.5-5.1); Alkaline Phosphatase 79 U/L (38-126); Anion Gap 8 mmol/L (4-12); Aspartate Amino Transferase 30 U/L (14-36); Bilirubin,Total 1.2 mg/dL (0.2-1.3); Blood Urea Nitrogen 6 mg/dL (7-17); Calcium 9.1 mg/dL (8.4-10.2); Carbon Dioxide 29 mmol/L (22-30); Chloride 103 mmol/L (98-107); Estimated CRCL calculation 75 ml/min; Estimated Glomerular Filt Rate > 60; Glucose 95 mg/dL (65-110); Osmolality Calculated 287 mOsm/kg (285-295); Potassium 3.3 mmol/L (3.4-5.0); Sodium 140 mmol/L (137-145)
[2024-12-04 13:07] LABS: Troponin I < 0.012 ng/mL (0.000-0.034)
[2024-12-04] MEDS: POTASSIUM CHLORIDE 20 MEQ ER TABLET PO (14:24)
[2024-12-04] MEDS: HYDROcodone/acetaminophen (*CRX) 5-325 MG TABLET 1 TAB PO (14:24)
[2024-12-04 14:32] VITALS: BP 109/63; PULSE 86; RESP 20; TEMP 36.6; O2SAT 99
== END 2024-12-04 14:37 | disposition home or self-care (01) ==
PROVIDERS: Emergency Provider Emergency Medicine; PCP Family Medicine
DX: G89.18 Other acute postprocedural pain (principal); F17.290 Nicotine dependence, other tobacco product, uncomplicated
CPT/HCPCS: 36415; 71275; 74177; 80053; 81003; 81025; 84484; 85025; 85610; 85730; 99284; A9270; Q9967

== ENCOUNTER 2025-03-24 13:28 | Outpatient (CLI) | payer OTHER, SELFPAY ==
--- OUTSIDE RECORDS SUMMARY | 2025-03-24 13:33 | XMS_ITS | Clinical Summary ---
Author Organization [facility] Address [address] [place] [address] Care Team Providers Care Surveyor Oil Well Directional Name Role Phone Crispin Cruz MD Primary Care Provider Source Comments [facility],non-owned Affiliates and Associated Physician Practices is amultiple site organization consisting of ambulatory clinics and hospital sitesin [place], [place], [place] and [place]. This disclosure is being madepursuant to the Care Everywhere program and may not contain all information available regarding this patient. Last updated 18.[facility] [employer] Allergies Active Allergy Reactions Criticality Noted Date Comments Acetaminophen 08/16/2015 Nausea, abdominal pain Medications * Be aware that medications may not be up to date on this document. Alwaysverify current medications with the patient. aspirin-acetami nophen-caffeine 250-250-65 MG tablet Take 1 Tab by mouth every 4 hours as needed for Headache Active naproxen (NAPROSYN) 500 MG tablet Take 1 Tab by mouth as needed with food for Pain 15 Tab 5 08/16/2015 Active raNITIdine (ZANTAC) 300 MG tablet Take 300 mg by mouth once daily Active FLUoxetine (PROZAC) 20 MG capsule Take 20 mg by mouth once daily Active drospirenone-et hinyl estradiol (LORYNA) 3-0.02 MG tablet Take 1 tablet by mouth once daily Active ibuprofen (MOTRIN) 200 MG tablet Take by mouth every 6 hours as needed for Pain Active HYDROcodone-yonatan taminophen (NORCO) 5-325 MG tablet Take 1 tablet [...] Smoking Tobacco: Every Day Smokeless Tobacco: Never Comments No Sex and Gender Information Value Date Recorded Sex Assigned at Not on file Legal Sex Female 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 MIXER DRIVER Gender Identity Not on file Sexual Orientation Not on file Last Filed Vital Signs Vital Sign Reading Time Taken Comments Blood Pressure 104/68 08/21/2018 8:43 AM TRANSIT MIXER DRIVER Pulse 79 06/14/2017 7:49 AM CDT per p cp Temperature 35.9 C (96.6 F) 06/14/2017 7:49 AM CDT per pcp Respiratory Rate 16 03/26/2017 9:13 AM CDT Oxygen Saturation 99% 03/26/2017 9:13 AM CDT Inhaled Oxygen Concentration - - Weight 47.3 kg (104 lb 4.4 oz) 08/21/2018 8:43 A M TRANSIT MIXER DRIVER Height 159.8 cm (5' 2.91) 08/21/2018 8:43 AM CS T Body Mass Index 18.52 08/21/2018 8:43 AM TRANSIT MIXER DRIVER Plan of Treatment Health Maintenance Due Date Last Done Comments HIV SCREENING 02/15/2016 HPV VACCINE (1 - 3-dose series) 02/15/2016 CHLAMYDIA/GONORRHEA SCREENING 2017 HEPATITIS C SCREENING 02/10/2019 DTAP/TDAP/TD VACCINES (1 - Tdap) 02/15/2020 HEPATITIS B VACCINE (1 of 3 - 19+ 3-dose series) 02/15/2020 PNEUMOCOCCAL VACCINE (1 of 2 - PCV) 02/15/2020 COVID-19 VACCINE (1 - 2023-2 5 season) 2024 DEPRESSION SCREENING 09/09/2024 INFLUENZA VACCINE (#1) 2025 ZOSTER VACCINE (1 of 2) 2051 HIB VACCINE Aged Out No longer eligi ble based on patient's age to complete this topic MENINGOCOCCAL (Group B) VACC INE SHARED DECISION-MAKING Aged Out No longer eligibl e based on patient's age to complete this topic MENINGOCOCCAL GROUPS A/C/Y/W VACCINE Aged Out No longer eligible b ased on patient's age to complete this topic Insurance ANTHEM Member Subscriber Plan / Payer (Ef fective 2016-Present) Name:Fatmata Hanna N Relation to Subscriber:Child Name:BRAIN BARRETT Subscriber ID:Not on file Date of :2001 (Home) Address: [address] [place] [id number] Payer ID:[id number] (NAIC) Type:PPO Address: [address] [place] [address] [facility] Care Teams Surveyor Oil Well Directional Relationship Specialty Start Date End Date Crispin Cruz MD [address] [place] [phone] PCP - General Family Medicine 03/26/17
--- OUTSIDE RECORDS SUMMARY | 2025-03-24 13:33 | XMS_ITS ---
Author Organization Unknown Address [address] [place] [phone] Phone Care Team Providers Care Car Pick Up Driver Name Role Phone RAMIRO WAGNER Attending [...] URINE - Colle ct Date/Time: 11/08/2023 10:15 [facility] ID: [id number] [address] [place], [place], [phone] LOINC: Test Value Unit Reference Range Code Code System Flag URINE PREG NEGATIVE LUMBAR SPINE - Completed: 10:33 LOINC: EXAM DESCRIPTION: LUMBAR SPINE REASON FOR STUDY: NKI lower back pain no previous fx or surgery Duration: since 10/19/2023 TECHNIQUE: Frontal, lateral and cone-down radiographic view(s) of the lumbar spine. COMPARISON: None available FINDINGS: 5 [id number]-ufccehk lumbar type vertebral bodies. There is mild levoconvex curvature. Lumbar vertebral body heights and disc spaces are maintained. There is no significant facet sclerosis. IMPRESSION: The lumbar vertebral body heights are maintained. THIS IS AN ELECTRONICALLY VERIFIED FINAL REPORT 11/09/2023 6:49 AM - Electronically signed by Dorian Patricia D.O. AP: AP Report ID: [id number] Reading Location: [id number] Social History Type Status Start Date End Date Code Code Syst em Smoking History Unknown if ever smoked [id number] Sex Female Hospital Discharge Instructions Should you have any questions prior to discharge, please contact a member of your healthcare team. If you have left the hospital and have any questions, please contact your primary care physician. Reason For Referral No Data Found Plan of Treatment US Echo With Color ([id number]) 02/13/2024 Encounters Encounter Diagnosis Start Date Code Code Sys tem Pain in left shoulder 11/08/2023 SNOMED -CT Personal Care Team Section Performer Name Performer Role Active Date Inactive Da USHA Rosales PCP - Primary care physician Imaging Narrative Notes
--- OUTSIDE RECORDS SUMMARY | 2025-03-24 13:33 | XMS_ITS ---
Author Organization Unknown Address [address] [place] [phone] Phone Care Team Providers Care Library Director Name Role Phone EDWARD ANASTACIOANGYAshok Attending [...] Smoking History Unknown if ever smoked [id number] Sex Female Hospital Discharge Instructions Should you have any questions prior to discharge, please contact a member of your healthcare team. If you have left the hospital and have any questions, please contact your primary care physician. Reason For Referral No Data Found Plan of Treatment US Echo With Color ([id number]) 02/13/2024 Encounters Encounter Diagnosis Start Date Code Code Sys tem Abnormal electrocardiogram [ECG] [EKG] 11/26/2023 SNOMED-CT Personal Care Team Section Performer Name Performer Role Active Date Inactive USHA Catherine PCP - Primary care physician
--- OUTSIDE RECORDS SUMMARY | 2025-03-24 13:34 | XMS_ITS | Data Portability ---
Author Organization [facility] Address [address] [place] [address] Assessment Encounter Date Assessment Date Assessment LastModified by Organization Details LastModified Time 01/03/2021 01/03/2021 nexplanon removed declines contraception WWE UTD [email or web address] Not available 01/03/2021 13:06:39 Plan of Treatment Reminders Order Date Submit Date Provider Last Modified By Organization Details Last Modified Time Details Appointments None recorded. Lab None recorded. Referral None recorded. Procedures None recorded. Surgeries None recorded. Imaging None recorded. Medication Orders nystatin-t riamcinolo ne 100,000 unit/gram- 0.1 % topical ointment 2019 [id number] [address] [place], [address], 12:42:18 Patient TargetsNo targets recorded. Patient Instructions Encounter Date Encounter Id Patient Instructions Last Modified By Organization Details Last Modified Time 05/17/2020 [id number] good vulvar care , finish diflucan start ointment f/u wwe [email or web address] Not available 05/17/2020 17:44:47 01/03/2021 [id number] learning about control Not available 01/03/2021 13:06:40 surgical trays* [email or web address] Not available 08/16/2021 14:41:40 Reason for Referral [...] [facility], d/b/a [facility], [address], [facility] [place] [address] , Dilan Padron ra, DO, Labor atory [...] antione resul ts of Misty l or [employer] hiwot are deter mined by calcu latin [...] rent demog raphi cs from the Path [facility] model popul ation may have diffe rent indic ator organ isms with diffe rent relat rakan ratio s, which would influ ence the final resul ts. Resul ts shoul d be inter prete d in the sharon xt of all clini corie and labor atory findi ngs. The test was devel oped and its perfo rmanc e isaac cteri stics deter mined by [facility], [employer] d/b/a [facility]. It has not been clear ed or appro orion by the U.S. Food and Drug Admin istra tion. The FDA has deter mined that such clear ance or appro paco is not neces erika. Perti nent refer ence inter vals are avail able from the [facility] on requ[facility]. Test( s) perfo rmed by [facility] [place] [facility], d/b/a [facility], [address], [place] [address] , Dilan Padron ra, DO, Labor atory Dire tor. Not Available [facility] ([facility]) [address] [facility] [address], [place], [address], 05/20/2020 15:27:07 05/17/20 20 05/20/2020 bacte rial [...] LLC, d/b/a [facility], [address], [place] [address] , Dilan Padron ra, DO, Labor atory Direc tor. Gardn erell a vagin dante, Hortensia da speci es: Genom ic DNA is isola hiwot from patie nt speci mens by stand sabiha labor atory techn iques and julio zed using custo m OpenA rray plate s, perfo rmed on the [employer]BA Material[employer] o 12K Flex Real Time PCR syste m. A posit rakan resul t is provi ded for patho genic bacte payal, virus and/o r funga l speci es based on detec tion of ampli ficat ion produ cts. Misty l vagin al antione resul ts of Misty l or [employer] hiwot are deter mined by calcu latin [...] isaac cteri stics deter mined by [facility] d/b/a [facility]. It has not been clear ed or appro orion by the U.S. Food and Drug Admin istra tion. The FDA has deter mined that such clear ance or appro paco is not neces erika. Perti nent refer ence inter vals are avail able from the labor atory on reque st. Test( s) perfo rmed by [facility], d/b/a [facility], [address], [place] [address] , Dilan Padron ra, DO, Labor atory Direc tor. Not Available [facility] ([facility]) [address], [place], [address], 05/20/2020 15:27:07 05/17/20 20 05/20/2020 bacte rial vagin osis + vagin itis panel , vagin al trichomonas vaginalis, aptima (panther) NOT DETECT ED normal Trich omona s vagin danet: DNA testi ng perfo rmed by Trans [...] requi re re-ev aluat ion. A negat rakna resul t does not precl ude a possi ble infec tion due to a speci men inade quacy or sampl ing error . Test perfo rmed by [facility] [place] [facility], [employer], d/b/a [facility], [address], [place] [address] , Dilan Padron ra, DO, Labor atory [...] antione resul ts of Misty l or [employer] hiwot are deter mined by calcu latin [...] devel oped and its perfo rmanc e isaca cteri stics deter mined by [employer] [facility], [employer] d/b/a [facility]. It has not been clear ed or appro orion by the U.S. Food and Drug Admin istra tion. The FDA has deter mined that such clear ance or appro paco is not neces erika. Perti nent refer ence inter vals are avail able from the labor atory on reque st. Test( s) perfo rmed by [employer] [facility], [employer], d/b/a [facility], [address], [place] [address] , Dilan Padron ra, DO, Labor atory Direc tor. Not Available [facility] ([facility]) [address], [place], [address], 05/20/2020 15:27:07 Result Notes None recorded. Problems Name Problem SNOMED Code Status Onset Date Resolution Date Notes Provider Name and Address Organization Details Recorded Time Contrace ptive sheath status 632207935 Completed 201801/03/2021 Encounte r for initial prescrip tion of other contrace ptives;R ecorded Elsewher e: No Locat ion: [facility] S ource: EHR Acid Washer Operator sean: N Orionti ce ID: 0001 Rolando lable Time: 01:00:00 PM Sophia Hugo MD [address], [place], [address], [facility] 12:44:56 Amenorrh ea 43061072 Completed 201801/03/2021 Amenorrh ea;Recor ded Elsewher e: No [facility] S ource: EHR Acid Washer Operator sean: N Orionti ce ID: 0001 Rolando lable Time: 01:00:00 PM Sophia Hugo MD [address], [place], [address], [facility] 12:44:53 Pregnanc y test negative 278742222 Completed 201801/03/2021 Encounte r for pregnanc y test, result negative ;Recorde d Elsewher e: No [facility]: EHR Acid Washer Operator sean: N Orionti ce ID: 0001 Rolando lable Time: 01:00:00 PM Sophia Hugo MD [address], [place], [address], [facility] 12:45:01 Pelvic and perineal pain 116706236 Completed 201801/03/2021 Pelvic and perineal pain;Rec orded Elsewher e: No Locat ion: [facility] S ource: EHR Acid Washer Operator sean: N Orionti ce ID: 0001 Rolando lable Time: 01:00:00 PM Sophia Hugo MD [address], [place], [address], [facility] 1 12:45:06 Educatio n Completed 201801/03/2021 Encounte r for other general counseli ng and advice on contrace ption;Re corded Elsewher e: No Locat ion: [facility] S ource: EHR Acid Washer Operator sean: N Practi ce ID: 0001 Rolando lable Time: 01:00:00 PM Sophia Hugo MD [address], [place], [address], [facility] 12:44:59 Procedur e Completed 201801/03/2021 Encounte r for checking , reinsert ion or removal of implanta ble subderma l contrace ptive;Re corded Elsewher e: No Locat ion: [facility] S ource: EHR Acid Washer Operator sean: N Dee Dee ce ID: 0001 Rolando lable Time: 01:00:00 PM Sophia Hugo MD [address], [place], [address], [facility] 12:45:04 Problem Notes None recorded. Procedures Surgical History Date Name Laterality Status Provider Name and Address Organization Details Recorded Time 01/04/20 21 Nexplanon Removal completed Sophia Hugo MD [address], [place], [address], [facility] 01/03/2021 13:05:36 09/09/19 19 open reduction of dislocation of finger completed Rubia Mejia [facility] 05/17/2020 20:48:51 09/09/19 17 open reduction of dislocation of finger completed Rubia Mejia [facility] 05/17/2020 20:48:40 09/09/19 13 Unlisted px vestibule mouth completed Rubia Mejia [facility] 05/17/2020 20:49:03 Imaging Results None recorded. Procedure Notes None recorded. Medical Equipment None Reported. Allergies Allergen ID Allergen Name Allergen Category Reaction Reaction Severity Criticality Documentation Date Start Date Code Code System Note Provider Name and Address Organization Details Recorded Time 85103 acetamino phen medicatio n Not available Not available Not available 08/26/2020 161 RxNorm Comme nt: [facility] Agent : Tylen ol; Not Available [facility] 0 14:17:46 1970 Product containin g penicilli n (product) medicatio n Not available Not available Not available 05/17/2020 83241 8001 SNOMED Rubia Mejia [facility] 0 17:40:44 Medications Name Sig Start [...] ed Elsewher e: No Locat ion: [facility] odify By: [email or web address] Encounte r DateTime : 05/21/20 01:00:00 PM Not Available Not Available Not [...] Recorded Body height Body mass index (BMI) [Percentile] Per age and sex Body mass index (BMI) Body weight Systolic And Diastolic Provider Name and Address Organization Details Last Updated DateTime 01/03/2021 157.48 cm 10 % 18.5 kg/m2 65199.8 3 g 116/78 mm[Hg] Radha Morris [facility] 1 12:41:58 Date Recorded Body height Body mass index (BMI) [Percentile] Per age and sex Body mass index (BMI) Body weight Systolic And Diastolic Provider Name and Address Organization Details Last Updated DateTime 05/17/2020 157.48 cm 14 % 18.8 kg/m2 28246.0 1 g 102/65 mm[Hg] Rubia Mejia [facility] 0 17:40:34 Social History Question Answer Notes LastModified by [employer] Details LastModified Time Tobacco Smoking Status Current Every Day Smoker Rubia Mejia [facility] 05/17/2020 20:47:51 What Was The Date Of Your Most Recent Tobacco Screening? 05/17/2020 [email or web address] Information not available 05/17/2020 How Much Tobacco Do You Smoke? 1 PPW Information not available 05/17/2020 Sex: Unknown Functional Status Question Answer Note LastModified by [employer] Details LastModified Time What is your level of alcohol consumption? Occasional [email or web address] Information not available 05/17/2020 Do you or have you ever used smokeless tobacco? Never used smokeless tobacco [id number] Information not available 05/17/2020 Do you or have you ever used e-cigarettes or vape? Current user of electronic cigarettes [email or web address] Information not available 05/17/2020 What is your exercise level? Occasional [email or web address] Information not available 05/17/2020 Mental Status None recorded. Family History Relationship Description Onset Age of this Age Resolved Age Notes LastModified by Organization Details LastModified Time Maternal Grandfather Heart disease [email or web address] Not available 05/17 20:45:13 Maternal Grandfather Malignant tumor of colon [id number] Not available 05/17 20:45:33 Maternal Grandfather Hypercholest erolemia [email or web address] Not available 05/17 20:45:44 Maternal Grandfather Hypertensive disorder [email or web address] Not available 05/17 20:45:51 Maternal Grandmother Malignant tumor of colon [id number] Not available 05/17 20:45:33 Maternal Grandmother Malignant neoplasm of ovary [id number] Not available 05/17 20:46:05 Maternal Grandmother Malignant tumor of breast Not available 05/17 20:46:16 Maternal Grandmother Malignant tumor of cervix [id number] Not available 05/17 20:46:35 Maternal Grandmother Cyst of ovary [id number] Not available 05/17 20:46:54 Mother Cyst of ovary [id number] Not available 05/17 20:46:54 Mother Endometriosi s (clinical) [id number] Not available 20:47:25 Paternal Grandmother Diabetes mellitus [...] SNOMED-CT Code Diagnosis ICD10 Code Diagnosis Note [id number] Janny Case CNM [facility] [address] [address] 05/17/2020 17:20:03 05/17/2020 18:09:30 Candidiasis of vagina [id number] B37.3 42280 Sophia Hugo MD [facility] [address] [address] 01/03/2021 12:31:17 01/03/2021 13:08:50 Removal of subcutaneous contraceptive [id number] Z30.46 Health Concerns Section Related Observation LastModified by Organization Detai ls LastModified Time None Recorded Concern Status LastModified by Organization Details LastModified Time None Recorded Advance Directives Directive None Recorded Payers Insurance Date Sequence Insurance Name Policy Number Policy Cordero Covered Member ID Cordero Member ID Guarantor Name 12/31/2020 1 [place] [id number] 5 Brain Barrett [id number] Shade Hanna Notes Date Note Type Note Provider Name and Address Organization Details Recorded Time 05/17/2020 text/html Vaginal/Vulvar ProblemReported bypatient.Notes:pcp gave her antibiotics for a yeast infection, itching burning worsened and pt to ED and given 3 diflucan sxs are improving slightly Janny Case CNM [address], [place], [address], [facility] 05/17/2020 17:44:59 01/03/2021 text/html Here for nexplan on removal. Has never liked it since placed 1.5 years ago, but now bleeding for 4 weeks and molina, wants it out. Planning condoms, maybe OCP in a bit. Sophia Hugo MD [address], [place], [address], [facility] 01/03/2021 13:07:03 OBGyn Episode No OBEpisode recorded.
--- OUTSIDE RECORDS SUMMARY | 2025-03-24 13:34 | XMS_ITS | Clinical Summary ---
Author Organization [facility] Address [address] [address] Phone Care Team Providers Care Criminal Justice Department Chair Name Role Phone Crispin Cruz MD Primary Care Provider [phone] Allergies Active Allergy Reactions Criticality Noted Date [...] on file Legal Sex Female 7:18 AM STEELER Gender Identity Not on file Sexual Orientation [...] 10:04 AM CDT Height 157.5 cm (5' 2) 02/10/2020 10:04 AM CDT Body Mass Index 17.74 02/10/2020 10:04 AM CDT Plan of Treatment Health Maintenance Due Date Last Done Comments SARS-COV-2 Immunization ( season) 2024 Influenza Immunization (#1) 2025 06/03/2013, 0 04/23/2012 Respiratory Syncytial Virus (RSV) Immunization (Adult) (1 [...] PANEL ACUTE (AHP) Routine 09/11/2019 11:48 AM STEELER Serum total bilirubin elevated Abnormal weight loss Chronic nausea Right upper quadrant abdominal pain from Last 3 Months or Most Recently Relevant to Health Maintenance Results * HEPATITIS PANEL ACUTE (AHP) (09/11/2019 11:48 AM STEELER) HEPATITIS A IGM ANTIBODY NON DETECTED NON DETECTED 09/11/2019 9:25 PM STEELER [facility] Comment: IGM Antibodies to HAV not detected. Does not exclude early acute or recovered HAV infection. HEP B CORE AB (IGM) NON DETECTED NON DETECTED 09/11/2019 9:25 PM STEELER [facility] Comment:IGM anti-HBC not det ected. Does not exclude the possibility of exposure to or infection with HBV. HEPATITIS B SURFACE ANTIGEN NON DETECTED NON DETECTED 09/11/2019 9:25 PM STEELER [facility] Comment:A nonreactive test r esult does [...] antibody 0.17 <1 S/CO 09/11/2019 9:25 PM STEELER [facility] Comment: Signal/Cutoff ratio < 0.79 is Nondetected Signal/Cutoff ratio 0.80-0.99 is Grayzone Signal/Cutoff ratio > 0.99 is Detected Supplemental assays are recommended if signal/cutoff ratio is >/=1.00. Signal/cutoff ratio result >/= 5.00 is 97% predictive of positivity for recombinant immunoblot assay (RIBA) and will be reported to the [place] Department of Public Health as required. Blood specimen (specimen) Venipuncture / Unknown 09/11/2019 11:48 AM STEELER 09/11/2019 12:57 PM STEELER us Daphne Lawrence STRUCTURES TECHNICIAN, INSURANCE LOSS ADJUSTER HEMATOLOGY ORDERA BLES Final Result [facility] [address] [place] [address], [place] from Last 3 Months or Most Recently Relevant to Health Maintenance Insurance [facility] Care Teams Criminal Justice Department Chair Relationship Specialty Start Date End Date Crispin Cruz MD [address], [place] [phone] PCP - General Pediatrics 09/11/19
--- OUTSIDE RECORDS SUMMARY | 2025-03-24 13:34 | XMS_ITS ---
Author Organization Unknown Address [address] [place] [phone] Phone Care Team Providers Care Circulation Crew Leader Name Role Phone EDWARD ANASTACIOANGYAshok Attending Unavailable [...] Smoking History Unknown if ever smoked [id number] Sex Female Hospital Discharge Instructions Should you have any questions prior to discharge, please contact a member of your healthcare team. If you have left the hospital and have any questions, please contact your primary care physician. Reason For Referral No Data Found Plan of Treatment US Echo With Color ([id number]) 02/13/2024 Encounters Encounter Diagnosis Start Date Code Code Sys tem Electrocardiogram abnormal 02/13/2024 [id number] S NOMED-CT Personal Care Team Section Performer Name Performer Role Active Date Inactive USHA Catherine PCP - Primary care physician Imaging Narrative Notes [facility] 02/18/2024 15:21 [place] [address] RADIOLOGY REPORT Patient Number: [id number] Patient Name: FLOR RAMIREZ Type: O/P MR Number: [id number] : 2000 Age: 24 Sex: F Room #: Admit Date: 02/13/24 Discharge Date 02/13/24 Ordering Physician: EDWARD DIOR [facility] Physician: LUCY Lackey Physician: X-Ray Number : [id number] US ECHO W/ COLOR [id number] COMPLETE:02/13/24 15:34 APC [id number] (REASON-ECHO COMPLTE: abn ekg See Scanned Image Attachment for Report Dictated By: Radha Initials: Trans Date: 02/18/24 15:21 <<REPDIST>>
--- OUTSIDE RECORDS SUMMARY | 2025-03-24 13:34 | XMS_ITS ---
Author Organization Unknown Address [address] [place] [phone] Phone Care Team Providers Care Operations Manager/Coordinator Name Role Phone EDWARD ANASTACIOANGYAshok Attending Unavailable [...] Smoking History Unknown if ever smoked [id number] Sex Female Hospital Discharge Instructions Should you have any questions prior to discharge, please contact a member of your healthcare team. If you have left the hospital and have any questions, please contact your primary care physician. Reason For Referral No Data Found Plan of Treatment US Echo With Color ([id number]) 02/13/2024 Encounters Encounter Diagnosis Start Date Code Code Sys tem Abnormal electrocardiogram [ECG] [EKG] 10/29/2023 SNOMED-CT Personal Care Team Section Performer Name Performer Role Active Date Inactive USHA Catherine PCP - Primary care physician
[2025-03-24 14:27] LABS: Influenza A QL RT-PCR Negative (Negative); Influenza B QL RT-PCR Negative (Negative); RSV RNA, RT-PCR Negative (Negative); SARS-CoV-2 RNA PCR Negative (Negative); Strep Group A RT-PCR NOT DETECTED (Negative)
== END 2025-03-24 13:29 | disposition home or self-care (01) ==
PROVIDERS: PCP Family Medicine; Visit Provider Family Medicine
DX: R05.9 Cough, unspecified (principal); R50.9 Fever, unspecified
CPT/HCPCS: 87637; 87651

== ENCOUNTER 2025-03-25 10:06 | Outpatient (CLI) | payer OTHER, SELFPAY ==
--- NOTE | ~2025-03-25 | XR_ITS ---
Clinical Indication: Chest pain PA and lateral views of the chest: Comparison: 10/25/2023 Findings: The lungs are clear, without evidence of focal consolidation or pleural effusion. Cardiome diastinal silhouette is within normal limits. Bones and soft tissues are unremarkable. Impression: Normal chest. Reviewed, dictated and finalized at location . Impression: Normal chest.
--- OUTSIDE RECORDS SUMMARY | 2025-03-25 10:12 | XMS_ITS ---
Author Organization Unknown Address [address] [place] [phone] Phone Care Team Providers Care Medication Reconciliation Technician Name Role Phone RAMIRO WAGNER Attending Unavailable [...] URINE - Colle ct Date/Time: 11/08/2023 10:15 [facility] ID: [id number] [address] [place], [place], [id number] LOINC: Test Value Unit Reference Range Code Code System Flag URINE PREG NEGATIVE LUMBAR SPINE - Completed: 10:33 LOINC: EXAM DESCRIPTION: LUMBAR SPINE REASON FOR STUDY: NKI lower back pain no previous fx or surgery Duration: since 10/19/2023 TECHNIQUE: Frontal, lateral and cone-down radiographic view(s) of the lumbar spine. COMPARISON: None available FINDINGS: 5 [id number] lumbar type vertebral bodies. There is mild levoconvex curvature. Lumbar vertebral body heights and disc spaces are maintained. There is no significant facet sclerosis. IMPRESSION: The lumbar vertebral body heights are maintained. THIS IS AN ELECTRONICALLY VERIFIED FINAL REPORT 11/09/2023 6:49 AM - Electronically signed by Dorian Patricia D.O. AP: AP Report ID: [id number] Reading Location: [id number] Social History Type Status Start Date End Date Code Code Syst em Smoking History Unknown if ever smoked [id number] Sex Female Hospital Discharge Instructions Should you have any questions prior to discharge, please contact a member of your healthcare team. If you have left the hospital and have any questions, please contact your primary care physician. Reason For Referral No Data Found Plan of Treatment US Echo With Color ([id number]) 02/13/2024 Encounters Encounter Diagnosis Start Date Code Code Sys tem Pain in left shoulder 11/08/2023 SNOMED -CT Personal Care Team Section Performer Name Performer Role Active Date Inactive USHA Catherine PCP - Primary care physician Imaging Narrative Notes
--- OUTSIDE RECORDS SUMMARY | 2025-03-25 10:12 | XMS_ITS ---
Author Organization Unknown Address [address] [place] [phone] Phone Care Team Providers Care Sr Solutions Consultant Name Role Phone EDWARD ANASTACIOANGYAshok Attending Unavailable [...] Smoking History Unknown if ever smoked [id number] Sex Female Hospital Discharge Instructions Should you have any questions prior to discharge, please contact a member of your healthcare team. If you have left the hospital and have any questions, please contact your primary care physician. Reason For Referral No Data Found Plan of Treatment US Echo With Color ([id number]) 02/13/2024 Encounters Encounter Diagnosis Start Date Code Code Sys tem Abnormal electrocardiogram [ECG] [EKG] 11/26/2023 SNOMED-CT Personal Care Team Section Performer Name Performer Role Active Date Inactive USHA Catherine PCP - Primary care physician
--- OUTSIDE RECORDS SUMMARY | 2025-03-25 10:12 | XMS_ITS | Clinical Summary ---
Author Organization [facility] Address [address] [place] [address] Care Team Providers Care Carpet Cleaner Name Role Phone Crispin Cruz MD Primary Care Provider Source Comments [facility],non-owned Affiliates and Associated Physician Practices is amultiple site organization consisting of ambulatory clinics and hospital sitesin [place], [place], [place] and [place]. This disclosure is being madepursuant to the Care Everywhere program and may not contain all information available regarding this patient. 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 Gender Identity Not on file Sexual Orientation Not on file Last Filed Vital Signs Vital Sign Reading Time Taken Comments Blood Pressure 104/68 08/21/2018 8:43 AM SATIN FINISHER Pulse 79 06/14/2017 7:49 AM CDT per p cp Temperature 35.9 C (96.6 F) 06/14/2017 7:49 AM CDT per pcp Respiratory Rate 16 03/26/2017 9:13 AM CDT Oxygen Saturation 99% 03/26/2017 9:13 AM CDT Inhaled Oxygen Concentration - - Weight 47.3 kg (104 lb 4.4 oz) 08/21/2018 8:43 A M SATIN FINISHER Height 159.8 cm (5' 2.91) 08/21/2018 8:43 AM CS T Body Mass Index 18.52 08/21/2018 8:43 AM SATIN FINISHER Plan of Treatment Health Maintenance Due Date [...] on file Date of :2000 (Home) Address: [address] [place] [id number] Payer ID:[id number] (NAIC) Type:PPO Address: [address] [place] [address] [facility] Care Teams Carpet Cleaner Relationship Specialty Start Date End Date Crispin Cruz MD [address] [place] [phone] PCP - General Family Medicine 03/26/17
--- OUTSIDE RECORDS SUMMARY | 2025-03-25 10:13 | XMS_ITS ---
Author Organization Unknown Address [address] [place] [phone] Phone Care Team Providers Care Early Childhood Education Worker Name Role Phone EDWARD ANASTACIOANGYAshok Attending Unavailable [...] Smoking History Unknown if ever smoked [id number] Sex Female Hospital Discharge Instructions Should you have any questions prior to discharge, please contact a member of your healthcare team. If you have left the hospital and have any questions, please contact your primary care physician. Reason For Referral No Data Found Plan of Treatment US Echo With Color ([id number]) 02/13/2024 Encounters Encounter Diagnosis Start Date Code Code Sys tem Abnormal electrocardiogram [ECG] [EKG] 10/29/2023 SNOMED-CT Personal Care Team Section Performer Name Performer Role Active Date Inactive USHA Catherine PCP - Primary care physician
--- OUTSIDE RECORDS SUMMARY | 2025-03-25 10:13 | XMS_ITS | Clinical Summary ---
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 Does not exclude early acute or recovered HAV infection. HEP B CORE AB (IGM) NON DETECTED NON DETECTED 09/11/2019 9:25 PM LABORER [employer] [facility] Comment:IGM anti-HBC not det ected. Does not exclude the possibility of exposure to or infection with HBV. HEPATITIS B SURFACE ANTIGEN NON DETECTED NON DETECTED 09/11/2019 9:25 PM LABORER [employer] [facility] Comment:A nonreactive test r esult [...] antibody 0.17 <1 S/CO 09/11/2019 9:25 PM LABORER [employer] [facility] Comment: Signal/Cutoff ratio < 0.79 is Nondetected Signal/Cutoff ratio 0.80-0.99 is Grayzone Signal/Cutoff ratio > 0.99 is Detected Supplemental assays are recommended if signal/cutoff ratio is >/=1.00. Signal/cutoff ratio result >/= 5.00 is 97% predictive of positivity for recombinant immunoblot assay (RIBA) and will be reported to the [place] Department of Public Health as required. Blood specimen (specimen) Venipuncture / Unknown 09/11/2019 11:48 AM LABORER [employer] 09/11/2019 12:57 PM LABORER [employer] us Daphne Lawrence TECHNOLOGY SALES SPECIALIST, C[employer] HEMATOLOGY ORDERA BLES Final Result [facility] [address] [place] [address], [place] from Last 3 Months or Most Recently Relevant to Health Maintenance Insurance [facility] Care Teams Human Resources Compensation Analyst Relationship Specialty Start Date End Date Crispin [place] MD [address] [place], [place] [phone] PCP - General Pediatrics 09/11/19
--- OUTSIDE RECORDS SUMMARY | 2025-03-25 10:13 | XMS_ITS ---
Author Organization Unknown Address [address] [place] [phone] Phone Care Team Providers Care Plate Glass Installer Name Role Phone EDWARD ANASTACIOANGYAshok Attending Unavailable [...] Smoking History Unknown if ever smoked [id number] Sex Female Hospital Discharge Instructions Should you have any questions prior to discharge, please contact a member of your healthcare team. If you have left the hospital and have any questions, please contact your primary care physician. Reason For Referral No Data Found Plan of Treatment US Echo With Color ([id number]) 02/13/2024 Encounters Encounter Diagnosis Start Date Code Code Sys tem Electrocardiogram abnormal 02/13/2024 [id number] S NOMED-CT Personal Care Team Section Performer Name Performer Role Active Date Inactive USHA Catherine PCP - Primary care physician Imaging Narrative Notes [facility] 02/18/2024 15:21 [place] [address] RADIOLOGY REPORT Patient Number: [id number] Patient Name: FLOR RAMIREZ Type: O/P MR Number: [id number] : 2000 Age: 24 Sex: F Room #: Admit Date: 02/13/24 Discharge Date 02/13/24 Ordering Physician: EDWARD DIOR [facility] Physician: LUCY Lackey Physician: X-Ray Number : [id number] US ECHO W/ COLOR [id number] COMPLETE:02/13/24 15:34 APC [id number] (REASON-ECHO COMPLTE: abn ekg See Scanned Image Attachment for Report Dictated By: Radha Initials: Trans Date: 02/18/24 15:21 <<REPDIST>>
[2025-03-25 10:20] LABS: Hematocrit 41.2 % (35.0-49.0); Hemoglobin 13.9 g/dL (12.0-15.0); Immature Granulocyte Percent A 0.2 % (0.0-0.0); Lymphocytes Absolute Auto 0.66 K/mm3 (1.10-4.50); Mean Corpuscular HGB Conc 33.7 g/dL (32-36); Mean Corpuscular Hemoglobin 29.8 pg (27.0-31.0); Mean Corpuscular Volume 88.2 fL (78.0-102.0); Nucleated Red Blood Cells Absolute Auto 0.00 K/mm3 (0.00-0.00); Nucleated Red Blood Cells Perc 0.0 % (0-0.0); Platelet Count Result 173 K/mm3 (150-420); Red Blood Count 4.67 M/mm3 (4.20-5.40); White Blood Count 4.4 K/mm3 (4.8-10.8)
[2025-03-25 10:32] LABS: Add Urine Microscopic? NO; Appearance Urine Clear (Clear); Glucose Urine UA Negative (Negative); Leukocyte Esterase Ur Negative (Negative); Nitrate Urine Negative (Negative); Specific Grav Ur <= 1.005 (1.010-1.020)
[2025-03-25 10:43] LABS: Alanine Aminotransferase 26 U/L (6-35); Albumin Level 4.5 g/dL (3.5-5.1); Alkaline Phosphatase 57 U/L (38-126); Amylase 85 U/L (30-110); Anion Gap 5 mmol/L (4-12); Aspartate Amino Transferase 30 U/L (14-36); Bilirubin,Total 2.3 mg/dL (0.2-1.3); Blood Urea Nitrogen 5 mg/dL (7-17); Calcium 9.4 mg/dL (8.4-10.2); Carbon Dioxide 26 mmol/L (22-30); Chloride 106 mmol/L (98-107); Estimated Glomerular Filt Rate > 60; Glucose 97 mg/dL (65-110); Osmolality Calculated 281 mOsm/kg (285-295); Potassium 3.9 mmol/L (3.4-5.0); Sodium 137 mmol/L (137-145); Total Protein 7.1 g/dL (6.3-8.2)
== END 2025-03-25 10:07 | disposition home or self-care (01) ==
LOC: CHSLAB 10:10
PROVIDERS: PCP Family Medicine; Visit Provider Family Medicine
DX: R10.84 Generalized abdominal pain (principal); R06.00 Dyspnea, unspecified; R07.1 Chest pain on breathing; E80.7 Disorder of bilirubin metabolism, unspecified
CPT/HCPCS: 36415; 71046; 80053; 81003; 82150; 82248; 85025